=== PATIENT | female | born 1970 | race Caucasian/White ===

== ENCOUNTER 2017-01-08 09:26 | Inpatient (IN) | payer SELFPAY ==
[2017-01-08] VITALS (7 sets, daily range): BP systolic 140–155; BP diastolic 68–84; PULSE 101–129; RESP 16–20; TEMP 97.7–97.9; O2SAT 99–100
[~2017-01-08] VITALS: Ht 154.9 cm; Wt 57.6 kg
[~2017-01-08 09:26] MED LIST: HUMALOG; KPHOSO PO; LANTUSP SQ
[2017-01-08] MEDS ORDERED: NOVOLOGSS (09:45)
[2017-01-08] MEDS ORDERED: SODIUM CHLOR 0.9% 1000 ML INJ 1,000 ML IV ONE ×2 (09:46→18:00)
[2017-01-08] MEDS ORDERED: SODIUM CHLORIDE 0.9% FLUSH 10 ML FLUSH IVF PRN (10:00)
[2017-01-08] MEDS ORDERED: ONDANSETRON HCL 4 MG/2 ML VIAL IV PUSH ONE (10:00)
[2017-01-08 10:03] LABS: AUTOMATED NEUTROPHIL # 7.4 TH/MM3 (1.8-7.7); BASOPHIL # 0.2 TH/MM3 (0-0.2); BASOPHIL % 2.1 % (0.0-2.0); EOSINOPHIL % 0.1 % (0.0-4.0); HEMATOCRIT 42.6 % (35.0-46.0); LYMPH % 15.3 % (9.0-44.0); LYMPHOCYTE # 1.4 TH/MM3 (1.0-4.8); MEAN CELL VOLUME 101.6 FL (80.0-100.0); MEAN CORPUSCULAR HEMOGLOBIN 33.9 PG (27.0-34.0); MEAN CORPUSCULAR HGB CONC 33.4 % (32.0-36.0); MONO % 4.2 % (0.0-8.0); NEUT % 78.3 % (16.0-70.0); PLATELET COUNT 260 TH/MM3 (150-450); RED BLOOD COUNT 4.19 MIL/MM3 (4.00-5.30); RED CELL DISTRIBUTION WIDTH 12.9 % (11.6-17.2); WHITE BLOOD COUNT 9.4 TH/MM3 (4.0-11.0)
[2017-01-08 10:06] LABS: HEMO FLAGS DIFF FINAL
[2017-01-08 10:10] LABS: CHLORIDE 98 MEQ/L (98-107); POTASSIUM 3.9 MEQ/L (3.5-5.1); SODIUM (NA) 142 MEQ/L (136-145)
[2017-01-08 10:14] LABS: ANION GAP 25 MEQ/L (5-15); BICARBONATE 19.1 MEQ/L (21.0-32.0); BLOOD UREA NITROGEN 14 MG/DL (7-18)
[2017-01-08 10:17] LABS: ALT (GPT) 49 U/L (10-53); AST (GOT) 65 U/L (15-37); GLOMERULAR FILTRATION RATE 74 ML/MIN (>89)
[2017-01-08 10:18] LABS: TOTAL BILIRUBIN ADULT 0.4 MG/DL (0.2-1.0)
[2017-01-08 10:20] LABS: ALKALINE PHOSPHATASE 100 U/L (45-117)
[2017-01-08] MEDS ORDERED: MORPHINE SULFATE 4 MG/ML INJ IV PUSH ONE (10:30)
[2017-01-08 10:39] LABS: BETA-HYDROXYBUTYRATE 7.11 MMOL/L (0.00-0.39)
[2017-01-08] MEDS ORDERED: IOHEXOL 350 MG/ML 10 ML VIAL (for RAD DIAG) IV ONE (11:47)
--- NOTE | 2017-01-08 12:20 | RADHPO ---
EXAM DATE/TIME: 01/08/2017 11:20 [place] COMPARISON: No previous studies available for comparison. INDICATIONS : Upper abdominal pain. Vomiting. IV CONTRAST: 80 cc Omnipaque 350 (iohexol) IV ORAL CONTRAST: No oral contrast ingested. RADIATION DOSE: 4.69 CTDIvol (mGy) MEDICAL HISTORY : Hypertension. Diabetes mellitus type 2. SURGICAL HISTORY : None. ENCOUNTER: Initial ACUITY: 1 day PAIN SCALE: 7/10 LOCATION: Bilateral lower quadrant TECHNIQUE: Volumetric scanning of the abdomen and pelvis was performed. Using automated exposure control and ad justment of the mA and/or kV according to patient size, radiation dose was kept as low as reasonably achievable to obtain optimal diagnostic quality images. FINDINGS: LOWER LUNGS: The visualized lower lungs are clear. LIVER: Liver is enlarged measuring up to 20 cm. There are 2 ill-defined lesions in the liver. There is an il l-defined hypodense lesion in segment 4 measuring 2.4 x 2.4 x 2.4 cm. There is also an ill-defined hy podense lesion measuring 3.2 x 3.3 x 3.2 cm in segment 6. There is minimal associated mass effect wit h both lesions with splaying of the portal branches in segment 4 and slight bowing of the liver capsu le in segment 6. SPLEEN: Normal size without lesion. PANCREAS: Pancreas enhances uniformly. KIDNEYS: Normal in size and shape. The several small subcentimeter hypodense cystic lesions in the left infer ior pole which are too small to characterize. There is no mass, stone or hydronephrosis. ADRENAL GLANDS: Within normal limits. VASCULAR: There is no aortic aneurysm. BOWEL/MESENTERY: Appendix is visualized and normal in appearance. Stomach is completely decompressed. Bowel is normal in caliber without evidence for bowel obstruction or gross bowel thickening. ABDOMINAL WALL: Within normal limits. RETROPERITONEUM: There is no lymphadenopathy. BLADDER: No wall thickening or mass. REPRODUCTIVE: Calcified probable uterine leiomyomas. 2 cm right adnexal cyst likely reflecting an ovarian cyst. INGUINAL: Small fat containing left inguinal hernia. MUSCULOSKELETAL: Within normal limits for patient age. CONCLUSION: 1. No definite CT findings to explain patient's abdominal pain 2. Liver is enlarged measuring 20 cm with 2 ill-defined hypodense masses. 2.4 x 2.4 x 2.4 cm mass in segment 4 and 3.2 x 3.3 x 3.2 cm mass in segment 6. Although the findings may reflect focal fat, diff erential considerations include both benign and malignant etiologies as there are no characteristic f indings to support a specific diagnosis. Recommend further characterization with multiphase liver mas s protocol MRI or CT exam particularly if patient has a history of EtOH abuse, hepatitis, or malignan cy. 3. Normal appendix. 4. Calcified uterine leiomyomas. 5. Subcentimeter cystic lesions in the left kidney are too small to fully characterize. Statistically these reflect cysts. Jw Cornell MD on January 08, 2017 at 12:00 Board Certified Radiologist. This report was verified electronically.
--- NOTE | 2017-01-08 12:21 | PD ---
HPI Chief Complaint: Diabetic Time Seen by Provider: 09:46 Travel History International Travel<30 days: No Contact w/Intl Traveler<30days: No Traveled to known affect area: No History of Present Illness HPI Patient is a type I diabetic, presents to emergency room with complaints of hyperglycemia as well as abdominal pain with nausea and vomiting. Patient reports that symptoms began this morning around 2 AM, reports that she she woke up and checked her blood sugar and it was in the 600s, reports that she administered insulin to herself. Reports that she is not feeling any better this morning and has severe epigastric pain. Reports no fever/chills PFSH Past Medical History Blood Disorders: No Heart Rhythm Problems: No Cancer: No Cardiovascular Problems: No High Cholesterol: Yes Chemotherapy: No Chest Pain: No Congestive Heart Failure: No Diabetes: Yes Patient Takes Glucophage: No Diminished Hearing: No Endocrine: Yes Gastrointestinal Disorders: Yes GERD: No Genitourinary: No Hiatal Hernia: No Hypertension: Yes Immune Disorder: No Implanted Vascular Access Dvce: No Musculoskeletal: No Neurologic: No Psychiatric: No Reproductive: No Respiratory: No Myocardial Infarction: No Radiation Therapy: No Thyroid Disease: No Ulcer: No ?: Not Past Surgical History Abdominal Surgery: No AICD: No Cardiac Surgery: No Section: Yes Ear Surgery: No Endocrine Surgery: No Eye Surgery: No Genitourinary Surgery: No Gynecologic Surgery: No Joint Replacement: No Neurologic Surgery: No Oral Surgery: No Pacemaker: No Thoracic Surgery: No Social History Alcohol Use: Yes (2 TIMES A WEEK) Tobacco Use: Yes (1 PPD) Substance Use: Yes ([facility]) Allergies-Medications (Allergen,Severity, Reaction): Coded Allergies: Penicillin (Verified Allergy, Severe, SWELLING, 01/08/17) Reported Meds & Prescriptions Reported Meds & Active Scripts Active Reported Novolog Inj (Insulin Aspart) 100 Unit/Ml Inj Review of Systems General / Constitutional: No: Fever Eyes: No: Visual changes HENT: No: Headaches Cardiovascular: No: Chest Pain or Discomfort Respiratory: No: Shortness of Breath Gastrointestinal: Positive: Nausea, Vomiting, Abdominal Pain Genitourinary: No: Dysuria Musculoskeletal: No: Pain Skin: No Rash Neurologic: No: Weakness Psychiatric: No: Depression Endocrine: No: Polydipsia Hematologic/Lymphatic: No: Easy Bruising Physical Exam Narrative GENERAL: Mild distress SKIN: Focused skin assessment warm/dry. HEAD: Atraumatic. Normocephalic. EYES: Pupils equal and round. No scleral icterus. No injection or drainage. ENT: No nasal bleeding or discharge. Mucous membranes pink and moist. NECK: Trachea midline. No JVD. CARDIOVASCULAR: Regular rate and rhythm. No murmur appreciated. RESPIRATORY: No accessory muscle use. Clear to auscultation. Breath sounds equal bilaterally. GASTROINTESTINAL: Abdomen soft, increased tenderness to epigastrium with no rebound or guarding on exam MUSCULOSKELETAL: No obvious deformities. No clubbing. No cyanosis. No edema. NEUROLOGICAL: Awake and alert. No obvious cranial nerve deficits. Motor grossly within normal limits. Normal speech. PSYCHIATRIC: Appropriate mood and affect; insight and judgment normal. Data Data Last Documented VS Vital Signs Date Time Temp Pulse Resp B/P Pulse Ox O2 Delivery O2 Flow Rate FiO2 01/08/17 11:44 101 18 142/68 99 01/08/17 10:34 Room Air 01/08/17 09:33 97.9 Orders Electrocardiogram (01/08/17 09:46) Complete Blood Count With Diff (01/08/17 09:46) Comprehensive Metabolic Panel (01/08/17 09:46) Magnesium (Mg) (01/08/17 09:46) Beta Hydroxybutyrate (Acetone) (01/08/17 09:46) Osmolality,Serum (01/08/17 09:46) Urinalysis - C+S If Indicated (01/08/17 09:46) Blood Glucose (01/08/17 09:46) Blood Glucose (01/08/17 10:46) Iv Access Insert/Monitor (01/08/17 09:46) Oximetry (01/08/17 09:46) Sodium Chloride 0.9% Flush (Ns Flush) (01/08/17 10:00) Sodium Chlor 0.9% 1000 Ml Inj (Ns 1000 M (01/08/17 09:46) Lipase (01/08/17 09:46) Ondansetron Inj (Zofran Inj) (01/08/17 10:00) Ct Abd/Pel W Iv Contrast(Rout) (01/08/17 10:27) Morphine Inj (Morphine Inj) (01/08/17 10:30) Iohexol 350 Inj (Omnipaque 350 Inj) (01/08/17 11:47) Labs Laboratory Tests Test 01/08/17 09:50 White Blood Count 9.4 TH/MM3 Red Blood Count 4.19 MIL/MM3 Hemoglobin 14.2 GM/DL Hematocrit 42.6 % Mean Corpuscular Volume 101.6 FL Mean Corpuscular Hemoglobin 33.9 PG Mean Corpuscular Hemoglobin 33.4 % Concent Red Cell Distribution Width 12.9 % Platelet Count 260 TH/MM3 Mean Platelet Volume 8.4 FL Neutrophils (%) (Auto) 78.3 % Lymphocytes (%) (Auto) 15.3 % Monocytes (%) (Auto) 4.2 % Eosinophils (%) (Auto) 0.1 % Basophils (%) (Auto) 2.1 % Neutrophils # (Auto) 7.4 TH/MM3 Lymphocytes # (Auto) 1.4 TH/MM3 Monocytes # (Auto) 0.4 TH/MM3 Eosinophils # (Auto) 0.0 TH/MM3 Basophils # (Auto) 0.2 TH/MM3 CBC Comment DIFF FINAL Differential Comment Sodium Level 142 MEQ/L Potassium Level 3.9 MEQ/L Chloride Level 98 MEQ/L Carbon Dioxide Level 19.1 MEQ/L Anion Gap 25 MEQ/L Blood Urea Nitrogen 14 MG/DL Creatinine 0.82 MG/DL Estimat Glomerular Filtration 74 ML/MIN Rate Random Glucose 261 MG/DL Serum Osmolality 315 MOSM/KG Calcium Level 8.6 MG/DL Magnesium Level 2.0 MG/DL Total Bilirubin 0.4 MG/DL Aspartate Amino Transf 65 U/L (AST/SGOT) Alanine Aminotransferase 49 U/L (ALT/SGPT) Alkaline Phosphatase 100 U/L Total Protein 7.5 GM/DL Albumin 3.8 GM/DL Lipase 2491 U/L B-Hydroxybutyrate 7.11 MMOL/L [facility] Medical Decision Making Medical Screen Exam Complete: Yes Emergency Medical Condition: Yes Interpretation(s) EKG at sinus tach at 101bpm, qt/qtc: 346/417, no acute st or t wave changes Vital Signs Date Time Temp Pulse Resp B/P Pulse Ox O2 Delivery O2 Flow Rate FiO2 01/08/17 11:44 101 18 142/68 99 01/08/17 10:34 108 16 155/81 99 Room Air 01/08/17 09:55 16 100 Room Air 01/08/17 09:36 16 100 Room Air 01/08/17 09:33 97.9 104 16 144/68 100 Room Air Laboratory Tests Test 01/08/17 09:50 White Blood Count 9.4 TH/MM3 (4.0-11.0) Red Blood Count 4.19 MIL/MM3 (4.00-5.30) Hemoglobin 14.2 GM/DL (11.6-15.3) Hematocrit 42.6 % (35.0-46.0) Mean Corpuscular Volume 101.6 FL (80.0-100.0) Mean Corpuscular Hemoglobin 33.9 PG (27.0-34.0) Mean Corpuscular Hemoglobin 33.4 % Concent (32.0-36.0) Red Cell Distribution Width 12.9 % (11.6-17.2) Platelet Count 260 TH/MM3 (150-450) Mean Platelet Volume 8.4 FL (7.0-11.0) Neutrophils (%) (Auto) 78.3 % (16.0-70.0) Lymphocytes (%) (Auto) 15.3 % (9.0-44.0) Monocytes (%) (Auto) 4.2 % (0.0-8.0) Eosinophils (%) (Auto) 0.1 % (0.0-4.0) Basophils (%) (Auto) 2.1 % (0.0-2.0) Neutrophils # (Auto) 7.4 TH/MM3 (1.8-7.7) Lymphocytes # (Auto) 1.4 TH/MM3 (1.0-4.8) Monocytes # (Auto) 0.4 TH/MM3 (0-0.9) Eosinophils # (Auto) 0.0 TH/MM3 (0-0.4) Basophils # (Auto) 0.2 TH/MM3 (0-0.2) CBC Comment DIFF FINAL Differential Comment Sodium Level 142 MEQ/L (136-145) Potassium Level 3.9 MEQ/L (3.5-5.1) Chloride Level 98 MEQ/L (98-107) Carbon Dioxide Level 19.1 MEQ/L (21.0-32.0) Anion Gap 25 MEQ/L (5-15) Blood Urea Nitrogen 14 MG/DL (7-18) Creatinine 0.82 MG/DL (0.50-1.00) Estimat Glomerular Filtration 74 ML/MIN (>89) Rate Random Glucose 261 MG/DL (74-106) Serum Osmolality 315 MOSM/KG (275-295) Calcium Level 8.6 MG/DL (8.5-10.1) Magnesium Level 2.0 MG/DL (1.5-2.5) Total Bilirubin 0.4 MG/DL (0.2-1.0) Aspartate Amino Transf 65 U/L (15-37) (AST/SGOT) Alanine Aminotransferase 49 U/L (10-53) (ALT/SGPT) Alkaline Phosphatase 100 U/L (45-117) Total Protein 7.5 GM/DL (6.4-8.2) Albumin 3.8 GM/DL (3.4-5.0) Lipase 2491 U/L (73-393) B-Hydroxybutyrate 7.11 MMOL/L (0.00-0.39) Differential Diagnosis DKA, hyperglycemia, electrolyte abnormality, pancreatitis, gastritis, gastroenteritis, ACS Narrative Course Patient is a 46-year-old female who presents to emergency room with complaints of hyperglycemia along with abdominal pain, nausea vomiting and epigastric pain. Reports that symptoms began 2 AM, patient reports that her blood sugar was reading over 700. Blood sugar to 244, labs including CT of abdomen and pelvis ordered. Will give IV fluids and antiemetics as well as pain medications. Vital Signs Date Time Temp Pulse Resp B/P Pulse Ox O2 Delivery O2 Flow Rate FiO2 01/08/17 11:44 101 18 142/68 99 01/08/17 10:34 108 16 155/81 99 Room Air 01/08/17 09:55 16 100 Room Air 01/08/17 09:36 16 100 Room Air 01/08/17 09:33 97.9 104 16 144/68 100 Room Air Laboratory Tests Test 01/08/17 09:50 White Blood Count 9.4 TH/MM3 (4.0-11.0) Red Blood Count 4.19 MIL/MM3 (4.00-5.30) Hemoglobin 14.2 GM/DL (11.6-15.3) Hematocrit 42.6 % (35.0-46.0) Mean Corpuscular Volume 101.6 FL (80.0-100.0) Mean Corpuscular Hemoglobin 33.9 PG (27.0-34.0) Mean Corpuscular Hemoglobin 33.4 % Concent (32.0-36.0) Red Cell Distribution Width 12.9 % (11.6-17.2) Platelet Count 260 TH/MM3 (150-450) Mean Platelet Volume 8.4 FL (7.0-11.0) Neutrophils (%) (Auto) 78.3 % (16.0-70.0) Lymphocytes (%) (Auto) 15.3 % (9.0-44.0) Monocytes (%) (Auto) 4.2 % (0.0-8.0) Eosinophils (%) (Auto) 0.1 % (0.0-4.0) Basophils (%) (Auto) 2.1 % (0.0-2.0) Neutrophils # (Auto) 7.4 TH/MM3 (1.8-7.7) Lymphocytes # (Auto) 1.4 TH/MM3 (1.0-4.8) Monocytes # (Auto) 0.4 TH/MM3 (0-0.9) Eosinophils # (Auto) 0.0 TH/MM3 (0-0.4) Basophils # (Auto) 0.2 TH/MM3 (0-0.2) CBC Comment DIFF FINAL Differential Comment Sodium Level 142 MEQ/L (136-145) Potassium Level 3.9 MEQ/L (3.5-5.1) Chloride Level 98 MEQ/L (98-107) Carbon Dioxide Level 19.1 MEQ/L (21.0-32.0) Anion Gap 25 MEQ/L (5-15) Blood Urea Nitrogen 14 MG/DL (7-18) Creatinine 0.82 MG/DL (0.50-1.00) Estimat Glomerular Filtration 74 ML/MIN (>89) Rate Random Glucose 261 MG/DL (74-106) Serum Osmolality 315 MOSM/KG (275-295) Calcium Level 8.6 MG/DL (8.5-10.1) Magnesium Level 2.0 MG/DL (1.5-2.5) Total Bilirubin 0.4 MG/DL (0.2-1.0) Aspartate Amino Transf 65 U/L (15-37) (AST/SGOT) Alanine Aminotransferase 49 U/L (10-53) (ALT/SGPT) Alkaline Phosphatase 100 U/L (45-117) Total Protein 7.5 GM/DL (6.4-8.2) Albumin 3.8 GM/DL (3.4-5.0) Lipase 2491 U/L (73-393) B-Hydroxybutyrate 7.11 MMOL/L (0.00-0.39) Labs and ct studies reviewed with patient in detail. Patient's blood sugar is 261, serum on symptoms 315, and gap is 25, beta hydroxybutyrate 7.11 - concern for impending DKA given her lab work and physical presentation patient also with lipase of 2,491 with epigastric pain - clinically patient has pancreatitis. CT of the abdomen and pelvis is concerning as she has some hypodense masses on her liver, patient reports that she has never had these masses in the past. Patient has history of alcohol abuse, hepatitis, I did give patient a copy her CT report as she will need to follow-up with her primary care doctor for further workup of these liver masses. Discussed concerns for possible malignancy. Patients sister at bedside, did talk to me in confidence, reports that patient drinks daily and she is concerned about patient's drinking habits although patient only drinking 2-3 drinks 2 days a week. Pancreatitis could be secondary to alcohol abuse Physician Communication Physician Communication case reviewed with dr. martinez who accepts pt to service Diagnosis Primary Impression: Pancreatitis Additional Impressions: Hyperglycemia due to type 1 diabetes mellitus Liver masses Admitting Information Admitting Physician Requests: Admit Fiorella Penn DO Jan 08, 2017 12:21
[2017-01-08 13:10] LABS: BLOOD, URINE SMALL (NEG); GLUCOSE,URINE 250 mg/dL (NEG); NITRITE,URINE NEG (NEG); PH, URINE 5.5 (5.0-8.5)
[2017-01-08 13:17] LABS: KETONE, URINE 80 OR GREATER mg/dL (NEG)
[2017-01-08 13:19] LABS: COMMENT (UR) CULT NOT INDICATED; CULTURE IF INDICATED CULT NOT INDICATED; METHOD OF COLLECTION CLEAN CATCH; RBC, URINE 0-3 /hpf (0-3); URINE COLOR YELLOW (YELLW/STRAW); WBC, URINE 0-2 /hpf (0-5)
[2017-01-08] MEDS ORDERED: LORazepam 2 MG TAB PO PRN (14:15)
[2017-01-08] MEDS ORDERED: DEXTROSE 50% IN WATER 50 ML VIAL(D50) IV PRN (14:15)
[2017-01-08] MEDS ORDERED: NALOXONE HCL 0.4 MG/ML AMP IV PRN (14:15)
[2017-01-08] MEDS ORDERED: LORazepam 2 MG/ML VIAL IV PUSH PRN ×3 (14:15)
[2017-01-08] MEDS ORDERED: FLUMAZENIL 0.5 MG/5 ML VIAL IV PUSH PRN (14:15)
[2017-01-08] MEDS ORDERED: LORazepam 1 MG TAB PO PRN (14:15)
[2017-01-08] MEDS ORDERED: SODIUM CHLORIDE 0.9% FLUSH 10 ML FLUSH IV FLUSH PRN (14:15)
[2017-01-08] MEDS ORDERED: GLUCAGON 1 MG/ML VIAL OTHER PRN (14:15)
[2017-01-08 14:39] LABS: POTASSIUM 4.6 MEQ/L (3.5-5.1)
[2017-01-08 14:42] LABS: BICARBONATE 14.4 MEQ/L (21.0-32.0)
[2017-01-08] MEDS: SODIUM CHLOR 0.9% 1000 ML INJ 1,000 ML IV SCH ×2 (14:49→20:59)
[2017-01-08] MEDS ORDERED: MAGNESIUM HYDROXIDE SUSP 30 ML CUP PO PRN (15:00)
[2017-01-08] MEDS ORDERED: BISACODYL 10 MG SUPP RECTAL PRN (15:00)
[2017-01-08] MEDS ORDERED: PANTOPRAZOLE SOD 40 MG DELAYED RELEASE TAB PO SCH (15:00)
[2017-01-08] MEDS ORDERED: LACTULOSE SYRUP 20 GM/30 ML CUP PO PRN (15:00)
--- NOTE | 2017-01-08 16:24 | HHI.HP ---
[facility]ician Neptali Borges MD Admission Diagnosis HHNK, Pancreatitis Diagnoses: (1) Metabolic acidosis, increased anion gap Diagnosis: Principal (2) Diabetic ketoacidosis Diagnosis: Principal (3) Alcoholic ketoacidosis Diagnosis: Principal (4) Pancreatitis Diagnosis: Principal (5) Liver masses Diagnosis: Principal (6) Hypertension Diagnosis: Secondary (7) Hyperlipidemia Diagnosis: Secondary Chief Complaint: Abdominal pain, nausea vomiting Travel History International Travel<30 Days: No Contact w/Intl Traveler <30 Da: No Traveled to Known Affected Are: No History of Present Illness Written by Ammon Damon, acting as scribe for Dr. Obrien on 01/08/17 at 16: 11. 46-year-old female with known history of diabetes, hypertension, hyperlipidemia, alcohol use who presented to the hospital because of abdominal pain, nausea and vomiting. Patient states that she was in normal state of health until early this morning. She indicates that she had a promotion at work and was celebrating at home with alcohol use. She states that she had approximately 5 alcoholic beverages that consisted of vodka, water and Crystal light powder. Patient states that she woke up approximately 2 AM, not feeling well with lightheadedness and dizziness. Patient checked her blood sugar and noticed that it was 600. She states that she gave herself 15 units of NovoLog insulin and continued recheck her blood sugar every hour in which she states it came down to 360 prior to coming to the hospital. However during this time of monitoring her sugar she developed epigastric abdominal pain radiating into her back with associated nausea, vomiting, diarrhea. Because she could not stop having nausea, vomiting, diarrhea she came to the hospital for evaluation. Patient was evaluated in emergency department and found to have significant metabolic acidosis with anion gap. CT scan did show abnormal findings of the liver with possible masses. It was recommended by the ER physician that the patient be admitted for further evaluation and management. Patient indicates that she has not been managing her diabetes as she used to. She states that due to insurance reasons she had to change from Lantus insulin to NPH temporarily until her insurance was able to cover the Lantus. She indicates her primary medical doctor knew about this and has been adjusting her medications. Review of Systems Constitutional: DENIES: Diaphoretic episodes, Fatigue, Fever, Weight gain, Weight loss, Chills, Dizziness, Change in appetite, Night Sweats Eyes: DENIES: Blurred vision, Diplopia, Eye inflammation, Eye pain, Vision loss , Double Vision Ears, nose, mouth, throat: DENIES: Vertigo, Nasal discharge, Throat pain, Ear Pain, Running Nose, Sinus Pain Respiratory: DENIES: Apneas, Cough, Snoring, Wheezing, Hemoptysis, Sputum production, Shortness of breath Cardiovascular: COMPLAINS OF: PND, Claudication, DENIES: Chest pain, Palpitations, Syncope, Dyspnea on Exertion, Lower Extremity Edema, Orthopnea Gastrointestinal: COMPLAINS OF: Abdominal pain, Diarrhea, Nausea, Vomiting, DENIES: Black stools, Bloody stools, Constipation, Difficulty Swallowing, Anorexia Neurologic: DENIES: Abnormal gait, Headache, Localized weakness, Paresthesias, Seizures, Speech Problems, Tremor, Poor Balance Past Family Social History Past Medical History Hypertension Hyperlipidemia Diabetes type 1 Past Surgical History Left great toe amputation Reported Medications Reported Meds & Active Scripts Active Reported Novolog Inj (Insulin Aspart) 100 Unit/Ml Inj Allergies: Coded Allergies: Penicillin (Verified Allergy, Severe, SWELLING, 01/08/17) Family History Reviewed and significant for father at age 58 from diabetes, sister from seizures Social History Patient continues to smoke at least one pack a cigarettes a day since she was 13 years old. She does drink approximately 34 times weekly. Patient denied any illicit drug use, however records indicate that she admitted to marijuana use. Physical Exam Vital Signs Vital Signs Date Time Temp Pulse Resp B/P Pulse Ox O2 Delivery O2 Flow Rate FiO2 01/08/17 15:29 110 140/83 100 01/08/17 14:31 106 16 154/84 100 01/08/17 11:44 101 18 142/68 99 01/08/17 10:34 108 16 155/81 99 Room Air 01/08/17 09:55 16 100 Room Air 01/08/17 09:36 16 100 Room Air 01/08/17 09:33 97.9 104 16 144/68 100 Room Air Physical Exam GENERAL: Well-developed, well-nourished, in no acute distress. alert and orientated HEENT: Head is normocephalic without any lesions or masses noted. Facial features are symmetric. Eyes: Pupils equal round reactive to light. Extraocular muscles are intact. Conjunctivae were clear. Oropharyngeal: Pharynx without any erythema edema. Tongue is midline without deviation. Buccal mucosa is moist without any masses or lesions NECK: Supple without any masses. Trachea midline no deviation. No JVD, no bruits are appreciated CARDIAC: Regular rhythm, regular rate. S1/S2 are heard. No murmurs gallops or rubs. LUNGS: Clear to auscultation bilaterally. No wheeze, rhonchi or rales. No use of accessory muscles on inspiration or expiration. ABDOMEN: Soft, mild epigastric pain. Nondistended. Bowel sounds heard in all 4 quadrants. No organomegaly or masses. Negative rebound, negative guarding EXTREMITIES: No edema, pulses are equal bilaterally. No cyanosis or clubbing NEUROLOGY: Mood and affect appear appropriate. Cranial nerves II through XII grossly intact. Muscle strength 5/5 in upper and lower extremities bilaterally. Deep tendon reflexes are 2+ in upper and lower extremities bilaterally. Laboratory Laboratory Tests Test 01/08/17 01/08/17 01/08/17 09:50 12:45 14:21 White Blood Count 9.4 Red Blood Count 4.19 Hemoglobin 14.2 Hematocrit 42.6 Mean Corpuscular Volume 101.6 Mean Corpuscular Hemoglobin 33.9 Mean Corpuscular Hemoglobin 33.4 Concent Red Cell Distribution Width 12.9 Platelet Count 260 Mean Platelet Volume 8.4 Neutrophils (%) (Auto) 78.3 Lymphocytes (%) (Auto) 15.3 Monocytes (%) (Auto) 4.2 Eosinophils (%) (Auto) 0.1 Basophils (%) (Auto) 2.1 Neutrophils # (Auto) 7.4 Lymphocytes # (Auto) 1.4 Monocytes # (Auto) 0.4 Eosinophils # (Auto) 0.0 Basophils # (Auto) 0.2 CBC Comment DIFF FINAL Differential Comment Sodium Level 142 142 Potassium Level 3.9 4.6 Chloride Level 98 103 Carbon Dioxide Level 19.1 14.4 Anion Gap 25 25 Blood Urea Nitrogen 14 10 Creatinine 0.82 0.60 Estimat Glomerular Filtration 74 107 Rate Random Glucose 261 282 Serum Osmolality 315 Calcium Level 8.6 8.1 Magnesium Level 2.0 Total Bilirubin 0.4 Aspartate Amino Transf 65 (AST/SGOT) Alanine Aminotransferase 49 (ALT/SGPT) Alkaline Phosphatase 100 Total Protein 7.5 Albumin 3.8 Lipase 2491 B-Hydroxybutyrate 7.11 Urine Collection Type CLEAN CATCH Urine Color YELLOW Urine Turbidity CLEAR Urine pH 5.5 Urine Specific Luana 1.015 Urine Protein TRACE Urine Glucose (UA) 250 Urine Ketones 80 OR GREATER Urine Occult Blood SMALL Urine Nitrite NEG Urine Bilirubin NEG Urine Leukocyte Esterase NEG Urine RBC 0-3 Urine WBC 0-2 Urine Squamous Epithelial 6-8 Cells Microscopic Urinalysis Comment CULT NOT INDICATED Urine Collection Time 12:45 Result Diagram: 01/08/17 0950 01/08/17 1421 Imaging Last Impressions Abdomen/Pelvis CT 01/08/17 1027 Signed Impressions: Service Date/Time: Friday, January 08, 2017 11:20 - CONCLUSION: 1. No definite CT findings to explain patient's abdominal pain 2. Liver is enlarged measuring 20 cm with 2 ill-defined hypodense masses. 2.4 x 2.4 x 2.4 cm mass in segment 4 and 3.2 x 3.3 x 3.2 cm mass in segment 6. Although the findings may reflect focal fat, differential considerations include both benign and malignant etiologies as there are no characteristic findings to support a specific diagnosis. Recommend further characterization with multiphase liver mass protocol MRI or CT exam particularly if patient has a history of EtOH abuse, hepatitis, or malignancy. 3. Normal appendix. 4. Calcified uterine leiomyomas. 5. Subcentimeter cystic lesions in the left kidney are too small to fully characterize. Statistically these reflect cysts. Jw Cornell MD Assessment and Plan Assessment and Plan 46-year-old female admitted with anion gap metabolic acidosis and acute pancreatitis. Anion gap metabolic acidosis, probably related to a combination of early diabetic ketoacidosis and ketotic state from alcohol abuse Continue aggressive hydration with IV fluid. Continue monitor BMP, anion gap every 6 hours Monitor beta hydroxybutyrate Pancreatitis Keep nothing by mouth IV fluids Pain control Liver masses by CT Obtain MRI for further evaluation Diabetes, uncontrolled Accu-Cheks with sliding scale insulin Alcohol abuse Patient counseled on cessation [facility] protocol Multivitamin, thiamine, folic acid DVT prevention Subcutaneous heparin This note was transcribed by scribe [Ammon Damon]. I, Dr. Marjorie Obrien personally performed the history, physical exam, and medical decision making; and confirmed the accuracy of the information in the transcribed note. Authenticated by Dr. Marjorie Obrien on 01/08/17 at 1620. Physician Certification 2 Midnight Certification Type: Admission for Inpatient Services Order for Inpatient Services The services are ordered in accordance with Medicare regulations or non- Medicare payer requirements, as applicable. In the case of services not specified as inpatient-only, they are appropriately provided as inpatient services in accordance with the 2-midnight benchmark. Estimated LOS (days): 2 days is the estimated time the patient will need to remain in the hospital, assuming treatment plan goals are met and no additional complications. Post-Hospital Plan: Not yet determined Problem Qualifiers (1) Diabetic ketoacidosis: Qualified Code: E10.10 - Diabetic ketoacidosis without coma associated with type 1 diabetes mellitus (2) Pancreatitis: Qualified Code: K85.90 - Acute pancreatitis, unspecified complication status, unspecified pancreatitis type (3) Hypertension: Qualified Code: I15.9 - Secondary hypertension (4) Hyperlipidemia: Qualified Code: E78.5 - Hyperlipidemia, unspecified hyperlipidemia type Ammon aDmon Jan 08, 2017 16:24 Marjorie Obrien MD Jan 08, 2017 17:32
[2017-01-08] MEDS: MORPHINE SULFATE 4 MG/ML INJ IV PUSH PRN ×2 (17:53→20:59)
[2017-01-08] MEDS: INSULIN ASPART SUPPLEMENTAL SCALE SQ SCH ×2 (17:54→21:00)
[2017-01-08] MEDS: PANTOPRAZOLE SODIUM 40 MG VIAL IV PUSH SCH (17:56)
[2017-01-08 20:41] LABS: BICARBONATE 11.6 MEQ/L (21.0-32.0); POTASSIUM 4.3 MEQ/L (3.5-5.1)
[2017-01-08] MEDS: HEPARIN SODIUM - SQ 10,000 UNITS/ML VIAL SQ SCH (20:58)
[2017-01-08] MEDS: DOCUSATE SODIUM 50 MG/SENNA 8.6 MG TAB PO SCH (20:59)
[2017-01-08] MEDS: SODIUM CHLORIDE 0.9% FLUSH 10 ML FLUSH IV FLUSH SCH (21:00)
[2017-01-08] MEDS ORDERED: SENNOSIDES 8.6 MG TAB PO PRN (21:00)
[2017-01-08] MEDS: NICOTINE 14 MG/24 HR PATCH T-DERMAL SCH (22:42)
[2017-01-09] VITALS (24 sets, daily range): BP systolic 92–124; BP diastolic 58–85; PULSE 104–135; RESP 9–45; TEMP 96–98.2; O2SAT 88–100
[2017-01-09] MEDS: MORPHINE SULFATE 4 MG/ML INJ IV PUSH PRN ×3 (00:33→16:49)
[2017-01-09] MEDS: ONDANSETRON HCL 4 MG/2 ML VIAL IVP PRN ×3 (00:38→12:55)
[2017-01-09] MEDS: LORazepam 2 MG/ML VIAL IV PUSH PRN ×4 (02:36→22:41)
[2017-01-09] MEDS: SODIUM CHLOR 0.9% 1000 ML INJ 1,000 ML IV SCH (03:31)
[2017-01-09 03:45] LABS: BICARBONATE 2.9 MEQ/L (21.0-32.0); POTASSIUM 5.5 MEQ/L (3.5-5.1)
[2017-01-09 04:05] LABS: CALCIUM-PROTEIN CORRECTED 7.3 MG/DL (8.5-10.1)
[2017-01-09] MEDS ORDERED: INSULIN ASPART 1,000 UNITS/10 ML VIAL SQ ONE (04:15)
[2017-01-09] MEDS ORDERED: SODIUM CHLOR 0.9% 1000 ML INJ 1,000 ML IV SCH (04:53)
[2017-01-09] MEDS ORDERED: POTASSIUM CHLOR 40 MEQ PREMIX 100 ML IV PRN (05:00)
[2017-01-09] MEDS ORDERED: SODIUM BICARBONATE 8.4% SOLN 50 MEQ/50 ML VIAL IV PRN ×2 (05:00)
[2017-01-09] MEDS ORDERED: MISCELLANEOUS NURSING INFORMATION XX SCH (05:00)
[2017-01-09] MEDS ORDERED: POTASSIUM CHLOR 20 MEQ PREMIX 100 ML IV PRN ×5 (05:00)
[2017-01-09] MEDS ORDERED: SODIUM PHOSPHATE INJ 15 MMOL in SODIUM CHLORIDE 0.9% INJ 100 ML IV PRN (05:00)
[2017-01-09] MEDS ORDERED: INSULIN REGULAR (IV INFUSION) 100 UNITS in SODIUM CHLORIDE 0.9% INJ 99 ML IV SCH (05:00)
[2017-01-09] MEDS ORDERED: DEXT 5%-NACL 0.45% 1000 ML INJ 1,000 ML IV SCH (05:00)
[2017-01-09] MEDS ORDERED: SODIUM CHLOR 0.9% 1000 ML INJ 1,000 ML IV ONE ×4 (05:15→07:30)
[2017-01-09 05:17] LABS: BLOOD GAS BASE EXCESS -29.2 mmol/L (-2-2); BLOOD GAS CARBOXYHEMOGLOBIN 0.8 % (0-4); BLOOD GAS HCO3 2 mmol/L (22-26); BLOOD GAS METHEMOGLOBIN 1.7 % (0-2); BLOOD GAS O2 HGB SATURATION 94 % (90-100); BLOOD GAS OXYGEN CONTENT 17.2 Vol % (12.0-20.0); BLOOD GAS PCO2 9 mmHg (38-42); BLOOD GAS PO2 143 mmHg (61-120); BLOOD GAS TOTAL HGB 12.8 G/DL (12.0-16.0)
[2017-01-09 05:18] LABS: CRITICAL VALUE YES; DRAW SITE RT BRACHIAL; FIO2 21 %; NUMBER OF ARTERIAL PUNCTURES 1; OXYGEN DEVICE ROOM AIR; STAT YES
[2017-01-09 05:32] LABS: HEMATOCRIT 41.5 % (35.0-46.0); MEAN CELL VOLUME 108.9 FL (80.0-100.0); MEAN CORPUSCULAR HEMOGLOBIN 34.9 PG (27.0-34.0); PLATELET COUNT 279 TH/MM3 (150-450); RED BLOOD COUNT 3.81 MIL/MM3 (4.00-5.30); RED CELL DISTRIBUTION WIDTH 14.4 % (11.6-17.2); REVIEW FLAG FINAL; WHITE BLOOD COUNT 21.6 TH/MM3 (4.0-11.0)
[2017-01-09 05:39] LABS: POTASSIUM 5.3 MEQ/L (3.5-5.1)
[2017-01-09 05:49] LABS: BICARBONATE 4.5 MEQ/L (21.0-32.0); INDIRECT BILIRUBIN 0.2 MG/DL (0.0-0.8); TOTAL BILIRUBIN ADULT 0.3 MG/DL (0.2-1.0)
[2017-01-09 06:02] LABS: BETA-HYDROXYBUTYRATE 12.31 MMOL/L (0.00-0.39)
[2017-01-09 06:38] LABS: BLOOD GAS CARBOXYHEMOGLOBIN 1.1 % (0-4); BLOOD GAS HCO3 5 mmol/L (22-26); BLOOD GAS METHEMOGLOBIN 1.6 % (0-2); BLOOD GAS O2 HGB SATURATION 95 % (90-100); BLOOD GAS OXYGEN CONTENT 16.2 Vol % (12.0-20.0); BLOOD GAS PCO2 18 mmHg (38-42); BLOOD GAS PO2 115 mmHg (61-120); CRITICAL VALUE YES; DRAW SITE RT RADIAL; LITER FLOW 2 L/M; NUMBER OF ARTERIAL PUNCTURES 1; OXYGEN DEVICE NASAL CANNULA
[2017-01-09 06:39] LABS: STAT YES; ULNAR PULSE PRESENT
[2017-01-09] MEDS: INSULIN ASPART SUPPLEMENTAL SCALE SQ SCH (07:00)
[2017-01-09 07:15] LABS: CALCIUM-PROTEIN CORRECTED 7.3 MG/DL (8.5-10.1)
[2017-01-09] MEDS ORDERED: INSULIN HUMAN REGULAR 1,000 UNITS/10 ML VIAL IV PUSH ONE (07:15)
[2017-01-09] MEDS ORDERED: CALCIUM GLUCONATE 10% 1 GM/10 ML VIAL ONE (07:30)
--- NOTE | 2017-01-09 07:30 | RADHPO ---
EXAM DATE/TIME: 01/09/2017 07:22 [facility] COMPARISON: CHEST SINGLE AP, February 28, 2013, 14:05. INDICATIONS : Post central line. MEDICAL HISTORY : Hypertension. Hypercholesterolemia. Diabetes mellitus type II. SURGICAL HISTORY : section. Left great toe. ENCOUNTER: Initial ACUITY: 1 day PAIN SCORE: Non-responsive. LOCATION: chest FINDINGS: There is a new right internal jugular central line in place with the tip overlying the inferior right atrium. The heart size is normal. The lungs demonstrate diffuse increased interstitial markings. Sig nificant effusions are not seen. A pneumothorax is not seen. CONCLUSION: 1. Right internal jugular central in place with the tip at the inferior aspect of the right atrium. 2. Diffuse increased interstitial markings representing underlying diffuse processes such as edema. Christopher Lamb MD on January 09, 2017 at 7:28 Board Certified Radiologist. This report was verified electronically.
--- NOTE | 2017-01-09 07:34 | PD.PROCEDR ---
Central Line Procedure REASON FOR PROCEDURE Central venous access for pressor use, medication administration PROCEDURE PERFORMED Central line placement: Right internal jugular vein CONSENT Informed consent for procedure was obtained by phone from patient's sister, [place], patient unable to give consent due to mental status. The risks and benefits of the procedure were discussed to include but limited to bleeding, clot formation, infection, and even . ANESTHESIA Local injection of 1% Lidocaine DESCRIPTION OF THE PROCEDURE The patient was placed in supine, mild Trendelenburg position. The area was exposed and cleansed with ChloraPrep, times two. Large sterile drape was used to cover the patient, with the site exposed, under sterile conditions including cap, face mask, sterile gown, and sterile gloves. On single attempt, the introducer needle was inserted with negative pressure in syringe and venous flash was obtained. The guide wire was then advanced without any restriction and the needle was removed. The dilator was used without any complications. Using Seldinger technique the CodeSealer triple lumen antibiotic coated catheter was advanced over the guide wire to a depth of 19 centimeters. The guide wire was removed. All ports were aspirated with dark venous blood return and flushed easily with sterile saline. All ports were capped. Antibiotic disc was placed around central line at puncture site. The central line was secured to the skin with two interrupted 2.0 silk sutures. The area was bandaged with sterile see- through central line bandage. RADIOLOGICAL DATA Ultrasound guidance was used to locate Right internal jugular vein. Chest X Ray was ordered to confirm placement. COMPLICATIONS: No apparent complications ESTIMATED BLOOD LOSS: Less than 1 cc. Ammon Damon Jan 09, 2017 07:34
[2017-01-09] MEDS ORDERED: CALCIUM GLUCONATE INJ 2 GM in DEXTROSE 5% IN WATER 100ML INJ 100 ML IV ONE ×2 (08:00)
[2017-01-09 08:24] LABS: BICARBONATE 8.7 MEQ/L (21.0-32.0)
[2017-01-09 08:36] LABS: MAGNESIUM 1.8 MG/DL (1.5-2.5)
[2017-01-09 08:38] LABS: CALCIUM-PROTEIN CORRECTED 7.3 MG/DL (8.5-10.1)
[2017-01-09] MEDS ORDERED: NORMOSOL R INJ 1,000 ML IV SCH (09:00)
[2017-01-09] MEDS: FOLIC ACID 1 MG TAB PO SCH (09:00)
[2017-01-09] MEDS ORDERED: THIAMINE HCL 100 MG TAB PO SCH (09:00)
[2017-01-09] MEDS: REMOVE OLD PATCH T-DERMAL SCH (09:00)
[2017-01-09] MEDS: MULTIVITAMINS/MINERALS THERAPEUTIC TAB PO SCH (09:00)
[2017-01-09] MEDS: DOCUSATE SODIUM 50 MG/SENNA 8.6 MG TAB PO SCH ×2 (09:00→21:00)
--- NOTE | 2017-01-09 09:05 | HHI.CCPN ---
Subjective Remarks/Hospital Course 46-year-old female with a medical history significant for type 1 diabetes, hypertension, hyperlipidemia, alcohol abuse who was admitted on 01/08 by hospitalist service after presenting with nausea vomiting abdominal pain following intake of 5 alcoholic beverages including vodka water and Crystal light powder at home. She also noted her blood glucose to be in the 600 range at home gave herself 15 units of NovoLog insulin prior to coming to the hospital. She was evaluated in the ER and was noted to have an anion gap metabolic acidosis with positive ketones. She was accepted for admission by hospitalist service and was admitted to the floor. A metabolic acidosis continued to worsen on the floor. She developed worsening mental status as well and was rushed to the ICU around 5:30 AM on 01/09 with florid diabetic ketoacidosis. She was initiated on DKA protocol and critical care consult was requested by hospitalist service. She was hypotensive on arrival to the ICU and was given 2 L normal saline bolus by consulting sme intensivists covering from the main hospital. She continued to drop her blood pressure hence was started on Levophed for pressor support while bolusing fluids and a right IJ central line was placed for central vascular access for administration of pressors and multiple fluid boluses following my arrival. At the time of my evaluation patient was stuporous though arousable with repeated stimulation though was not following commands and was nonverbal. She was on 2 L nasal cannula at the time and had been started on Levophed around 6 mics per minute at the time of my evaluation while receiving her second liter of normal saline bolus. She had a Angel catheter placed and was making urine. She had been started on an insulin drip around 6 units an hour and I ordered additional 10 units regular insulin IV push. Patient had received 3 amps of bicarbonate for severe metabolic acidosis with a bicarbonate of around 4. A CAT scan of her abdomen done on 01/08 in the ER revealed possible liver masses versus hypodense lesions. Reportedly due to insurance reasons she had to change from Lantus insulin to NPH temporarily until her insurance was able to cover the Lantus. She indicates her primary medical doctor knew about this and has been adjusting her medications. ROS - General Review of Systems Unable to be obtained due to altered mental status PFSH Past Family Social History Past Medical History Hypertension Hyperlipidemia Diabetes type 1 Past Surgical History Left great toe amputation Reported Medications Reported Meds & Active Scripts Active Reported Novolog Inj (Insulin Aspart) 100 Unit/Ml Inj Allergies: Coded Allergies: Penicillin (Verified Allergy, Severe, SWELLING, 01/08/17) Family History Reviewed and significant for father at age 58 from diabetes, sister from seizures Social History Patient continues to smoke at least one pack a cigarettes a day since she was 13 years old. She does drink approximately 34 times weekly. Patient denied any illicit drug use, however records indicate that she admitted to marijuana use to the hospitalists. Objective Vital Signs Date Time Temp Pulse Resp B/P Pulse Ox O2 Delivery O2 Flow Rate FiO2 01/09/17 07:40 98 Nasal Cannula 1.50 01/09/17 04:00 96.0 130 28 97/60 Intake and Output 01/08/17 01/08/17 01/09/17 08:00 16:00 00:00 Intake Total 1000 ml 1000 ml Balance 1000 ml 1000 ml Result Diagram: 01/09/17 0520 01/09/17 0800 Other Results Laboratory Tests Test 01/09/17 01/09/17 05:03 06:28 Blood Gas Puncture Site RT BRACHIAL RT RADIAL Blood Gas Patient Temperature 37.0 37.0 Blood Gas HCO3 2 mmol/L 5 mmol/L (22-26) (22-26) Blood Gas Base Excess -29.2 mmol/L -23.0 mmol/L (-2-2) (-2-2) Blood Gas Oxygen Saturation 94 % (90-100) 95 % (90-100) Arterial Blood pH 6.88 7.09 (7.380-7.420) (7.380-7.420) Arterial Blood Partial 9 mmHg (38-42) 18 mmHg (38-42) Pressure CO2 Arterial Blood Partial 143 mmHg 115 mmHg Pressure O2 (61-120) (61-120) Arterial Blood Oxygen Content 17.2 Vol % 16.2 Vol % (12.0-20.0) (12.0-20.0) Arterial Blood 0.8 % (0-4) 1.1 % (0-4) Carboxyhemoglobin Arterial Blood Methemoglobin 1.7 % (0-2) 1.6 % (0-2) Blood Gas Hemoglobin 12.8 G/DL 12.0 G/DL (12.0-16.0) (12.0-16.0) Oxygen Delivery Device ROOM AIR NASAL CANNULA Blood Gas Inspired Oxygen 21 % Blood Gas Liter Flow 2 L/M Imaging Last Impressions Chest X-Ray 01/09/17 0000 Signed Impressions: Service Date/Time: January 07:22 - CONCLUSION: 1. Right internal jugular central in place with the tip at the inferior aspect of the right atrium. 2. Diffuse increased interstitial markings representing underlying diffuse processes such as edema. Christopher Lamb MD Abdomen/Pelvis CT 01/08/17 1027 Signed Impressions: Service Date/Time: Sunday, January 08, 2017 11:20 - CONCLUSION: 1. No definite CT findings to explain patient's abdominal pain 2. Liver is enlarged measuring 20 cm with 2 ill-defined hypodense masses. 2.4 x 2.4 x 2.4 cm mass in segment 4 and 3.2 x 3.3 x 3.2 cm mass in segment 6. Although the findings may reflect focal fat, differential considerations include both benign and malignant etiologies as there are no characteristic findings to support a specific diagnosis. Recommend further characterization with multiphase liver mass protocol MRI or CT exam particularly if patient has a history of EtOH abuse, hepatitis, or malignancy. 3. Normal appendix. 4. Calcified uterine leiomyomas. 5. Subcentimeter cystic lesions in the left kidney are too small to fully characterize. Statistically these reflect cysts. Jw Cornell MD Urinary Catheter: Yes Assessment to: Continue Vascular Central Line Catheter: Yes Assessment to: Continue Date of Insertion: Jan 09, 2017 Line: Central Venous Catheter Side: Right Location: Jugular A/P Assessment and Plan 46-year-old female with: Diabetic ketoacidosis Hypotension dehydration alcohol abuse liver masses Encephalopathy Question of pancreatitis Plan: Neuro: Follow neuro status. Alcohol withdrawal protocol ordered with when necessary Ativan. Thiamine folic acid MVI. Cardiovascular: Aggressive fluid resuscitation. Levophed being transitioned to Indra-Synephrine for pressor support in view of tachycardia. Suspect hypotension is secondary to severe metabolic acidosis and dehydration secondary to DKA. Pulmonary: Supplemental O2 as needed. Patient tachypneic secondary to ketoacidosis. Hopefully with correction of DKA her tachypnea will improve. Currently appears to be protecting airway however may require intubation if DKA worsens. GI/liver: Nothing by mouth for now. GI consult requested for further evaluation of liver masses are noted on CT abdomen pelvis. LFTs normal. Renal/ : IV hydration, strict intake output, monitor and replete electrolites, follow BUN creatinine. 4 L of fluid bolus ordered. Continue maintenance IV fluid. ID: Leukocytosis noted. Possible aspiration, Possibly stress response secondary to DKA versus pancreatitis. Will obtain blood cultures 2, repeat UA and urine culture and initiate empiric antibiotic coverage with IV Levaquin. Endocrine: Insulin drip per DKA protocol. Given 10 units regular insulin IV earlier. Follow serial labs and fingerstick glucose per DKA protocol. Prophylaxis: PPI/SCDs/heparin. Discussed current clinical status with patient's family at bedside and updated them regarding plan of care and they voiced understanding and were agreeable. Condition critical with severe DKA with hypotension requiring pressors and possible need for intubation. Time spent on critical care excluding procedures 70 minutes Graham Roberts MD Jan 09, 2017 09:05
[2017-01-09] MEDS ORDERED: TERBUTALINE INJ 1 MG/ML AMP SQ PRN (09:15)
[2017-01-09 09:23] LABS: BLOOD GAS BASE EXCESS -18.2 mmol/L (-2-2); BLOOD GAS CARBOXYHEMOGLOBIN 1.3 % (0-4); BLOOD GAS HCO3 8 mmol/L (22-26); BLOOD GAS METHEMOGLOBIN 1.8 % (0-2); BLOOD GAS O2 HGB SATURATION 92 % (90-100); BLOOD GAS OXYGEN CONTENT 14.5 Vol % (12.0-20.0); BLOOD GAS PCO2 20 mmHg (38-42); BLOOD GAS PO2 81 mmHg (61-120); BLOOD GAS TOTAL HGB 11.1 G/DL (12.0-16.0)
[2017-01-09 09:24] LABS: CRITICAL VALUE YES; DRAW SITE LT RADIAL; LITER FLOW 1.5 L/M; NUMBER OF ARTERIAL PUNCTURES 2; OXYGEN DEVICE NASAL CANNULA; STAT NO; ULNAR PULSE PRESENT
[2017-01-09] MEDS: PANTOPRAZOLE SODIUM 40 MG VIAL IV PUSH SCH (09:26)
[2017-01-09] MEDS: HEPARIN SODIUM - SQ 10,000 UNITS/ML VIAL SQ SCH ×2 (09:27→21:45)
[2017-01-09] MEDS: LEVOFLOXACIN 750 MG PREMIX INJ 150 ML IV SCH (09:27)
[2017-01-09] MEDS: SODIUM CHLORIDE 0.9% FLUSH 10 ML FLUSH IV FLUSH SCH ×2 (09:28→21:31)
[2017-01-09] MEDS: NICOTINE 14 MG/24 HR PATCH T-DERMAL SCH (09:32)
[2017-01-09] MEDS ORDERED: INFLUENZA VIRUS VACCINE (QUADRIVALENT) 0.5 ML SYR IM ONE (10:00)
[2017-01-09] MEDS: POTASSIUM CHLOR 40 MEQ PREMIX 100 ML IV PRN ×3 (10:30→11:55)
[2017-01-09] MEDS ORDERED: PHENYLEPHRINE INJ 40 MG in DEXTROSE 5% IN WATE 500 ML INJ 496 ML IV SCH ×2 (11:00)
[2017-01-09 11:13] LABS: BLOOD, URINE LARGE (NEG); GLUCOSE,URINE 100 mg/dL (NEG); NITRITE,URINE NEG (NEG)
[2017-01-09 11:25] LABS: KETONE, URINE 80 OR GREATER mg/dL (NEG); METHOD OF COLLECTION CATH; URINE COLOR YELLOW (YELLW/STRAW)
[2017-01-09 11:27] LABS: WHITE BLOOD CELL CAST, URINE 15-19 /lpf
[2017-01-09 11:28] LABS: BACTERIA, URINE FEW /hpf; COMMENT (UR) CATH-CULTURE IND; CULTURE IF INDICATED CATH CULTURE IND; RBC, URINE INNUM /hpf (0-3)
[2017-01-09 11:29] LABS: POTASSIUM 3.1 MEQ/L (3.5-5.1)
[2017-01-09] MEDS: NORMOSOL R INJ 1,000 ML IV SCH ×3 (11:30→14:17)
[2017-01-09 11:46] LABS: BICARBONATE 12.6 MEQ/L (21.0-32.0); MAGNESIUM 1.6 MG/DL (1.5-2.5)
[2017-01-09 12:04] LABS: CALCIUM-PROTEIN CORRECTED 7.8 MG/DL (8.5-10.1)
[2017-01-09] MEDS ORDERED: SODIUM PHOSPHATE INJ 30 MMOL in SODIUM CHLOR 0.9% 250 ML INJ 250 ML IV ONE (13:00)
[2017-01-09] MEDS: DEXTROSE 50% IN WATER 50 ML VIAL(D50) IV PRN ×3 (13:03→21:40)
[2017-01-09 14:46] LABS: POTASSIUM 3.9 MEQ/L (3.5-5.1)
[2017-01-09 14:58] LABS: BICARBONATE 17.7 MEQ/L (21.0-32.0); MAGNESIUM 1.9 MG/DL (1.5-2.5)
[2017-01-09 15:10] LABS: BETA-HYDROXYBUTYRATE 0.62 MMOL/L (0.00-0.39)
[2017-01-09 15:14] LABS: CALCIUM-PROTEIN CORRECTED 7.4 MG/DL (8.5-10.1)
--- NOTE | 2017-01-09 15:54 | EKG ---
Date Performed: 01/08/2017 Time Performed: 09:51:58 PTAGE: 46 years EKG: Sinus tachycardia Normal ECG except for rate Since prior tracing heart rate has slowed and ST changes has improved. PREVIOUS TRACING : 02/28/2013 13.27 DOCTOR: Maxim eWbb Interpretating Date/Time 01/09/2017 15:52:42
[2017-01-09] MEDS: DEXT 5%-NACL 0.45% 1000 ML INJ 1,000 ML IV SCH ×2 (16:30→21:31)
[2017-01-09] MEDS ORDERED: CALCIUM GLUCONATE INJ 2 GM in SODIUM CHLORIDE 0.9% INJ 100 ML IV ONE (18:00)
[2017-01-09] MEDS ORDERED: DEXMEDETOMIDINE INJ 200 MCG in SODIUM CHLORIDE 0.9% INJ 50 ML IV SCH (18:15)
--- NOTE | 2017-01-09 18:34 | MB ---
cc: DELFINA ROBERTS MD,TERESE DOW,ANJELICA SINGLETON MD DATE OF CONSULTATION 01/09/[address] Anjelica Obrien REASON FOR CONSULTATION Diabetic ketoacidosis with pancreatitis. HISTORY OF PRESENT ILLNESS Ms. Cantor is a 46-year-old lady who basically came in with diabetic ketoacidosis, was found to have elevated lipase levels as well. Apparently, her condition worsened overnight and she was moved to the intensive care unit. Currently, she is not responsive, but she has received Ativan and morphine a little while ago. At this time, she is making good about of urine. She is on nasal cannula and generally seems stable, although requiring some epinephrine for blood pressure. REVIEW OF SYSTEMS No GI bleeding. No hematemesis or hematochezia reported. PAST MEDICAL HISTORY 1. Hypertension, 2. Hyperlipidemia, 3. Diabetes. PAST SURGICAL HISTORY 1. C section 2. Toe amputation. MEDICATIONS On admission Insulin. ALLERGIES [place] FAMILY HISTORY Significant for diabetes. SOCIAL HISTORY The patient is a smoker, also drinks alcohol. PHYSICAL EXAMINATION GENERAL: A well-nourished lady in no apparent distress. VITAL SIGNS: Stable. HEAD/NECK: Anicteric sclerae. CHEST: Bilateral air entry with rales. ABDOMEN: Soft. 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 RECTAL: Exam deferred at this time. LABORATORY DATA Glucose of 477, sodium of 144, lipase 3172. White cell count of 21,000. IMAGING STUDIES CT of the abdomen and pelvis reveals two spots in the liver of unclear significance, no evidence of pancreatitis. IMPRESSION Diabetic ketoacidosis, pancreatitis which is secondary to alcohol. RECOMMENDATIONS Aggressive IV fluid rehydration. This has been discussed with Dr. Roberts. Monitor renal functions closely. N.p.o. at this time. Start clear liquid diet once patient able to tolerate p.o. Overall prognosis remains guarded. This has been discussed with the patient's mother and father at the bedside. Continue to follow labs. We will follow with you. Thank you for this referral. MD DONNA Pollard/ /5:21 PM /6:24 PM
[2017-01-09 21:56] LABS: BICARBONATE 20.8 MEQ/L (21.0-32.0); MAGNESIUM 1.4 MG/DL (1.5-2.5)
[2017-01-09 22:08] LABS: CALCIUM-PROTEIN CORRECTED 7.9 MG/DL (8.5-10.1)
[2017-01-09] MEDS: POTASSIUM CHLOR 20 MEQ PREMIX 100 ML IV PRN (22:26)
[2017-01-09] MEDS: MAGNESIUM SULFATE 1 GM PREMIX 100 ML IV SCH ×2 (22:28→23:49)
[2017-01-09] MEDS ORDERED: SODIUM PHOSPHATE INJ 15 MMOL in SODIUM CHLORIDE 0.9% INJ 150 ML IV ONE (23:00)
[2017-01-10] VITALS (57 sets, daily range): BP systolic 72–113; BP diastolic 48–75; PULSE 92–120; RESP 22–43; TEMP 97.8–100.1; O2SAT 90–100
[2017-01-10 00:40] LABS: BLOOD GAS BASE EXCESS -7.7 mmol/L (-2-2); BLOOD GAS CARBOXYHEMOGLOBIN 1.2 % (0-4); BLOOD GAS HCO3 17 mmol/L (22-26); BLOOD GAS METHEMOGLOBIN 1.1 % (0-2); BLOOD GAS O2 HGB SATURATION 92 % (90-100); BLOOD GAS OXYGEN CONTENT 16.1 Vol % (12.0-20.0); BLOOD GAS PCO2 35 mmHg (38-42); BLOOD GAS PO2 68 mmHg (61-120); BLOOD GAS TOTAL HGB 12.4 G/DL (12.0-16.0); CRITICAL VALUE NO; OXYGEN DEVICE NASAL CANNULA
[2017-01-10 00:41] LABS: DRAW SITE RT RADIAL; LITER FLOW 6 L/M; NUMBER OF ARTERIAL PUNCTURES 1; STAT YES; ULNAR PULSE PRESENT
[2017-01-10] MEDS: POTASSIUM CHLOR 20 MEQ PREMIX 100 ML IV PRN ×3 (00:53→03:02)
[2017-01-10] MEDS ORDERED: POTASSIUM CHLORIDE INJ 20 MEQ in DEXTROSE 5%-NACL 0.225% INJ 1,000 ML IV SCH (04:00)
[2017-01-10 05:10] LABS: BETA-HYDROXYBUTYRATE 0.45 MMOL/L (0.00-0.39); MAGNESIUM 1.8 MG/DL (1.5-2.5)
[2017-01-10 05:21] LABS: CALCIUM-PROTEIN CORRECTED 7.5 MG/DL (8.5-10.1)
[2017-01-10] MEDS ORDERED: SODIUM PHOSPHATE INJ 15 MMOL in SODIUM CHLORIDE 0.9% INJ 150 ML IV ONE (06:00)
--- NOTE | 2017-01-10 06:16 | RADHPO ---
EXAM DATE/TIME: 01/10/2017 06:09 [facility] COMPARISON: CHEST SINGLE AP, January 09, 2017, 7:22. INDICATIONS : Shortness of breath MEDICAL HISTORY : Hypertension. Hypercholesterolemia. Diabetes mellitus type II. SURGICAL HISTORY : None. ENCOUNTER: Subsequent ACUITY: 2 days PAIN SCORE: Non-responsive. LOCATION: Bilateral chest FINDINGS: Diffuse air space opacities again seen of both lungs, both sides modestly worse in the interim. No la rge effusion seen. No pneumothorax. Heart size stable, within normal limits. Right internal jugular central venous catheter with tip in the right atrium unchanged. CONCLUSION: Modestly worse diffuse parenchymal opacities of both lungs. Christopher Altman MD on January 10, 2017 at 6:13 Board Certified Radiologist. This report was verified electronically.
[2017-01-10] MEDS: INSULIN DETEMIR 100 UNITS/ML VIAL SQ SCH ×3 (08:02→21:27)
[2017-01-10] MEDS ORDERED: FUROSEMIDE 20 MG/2 ML VIAL IV PUSH ONE ×2 (08:15)
--- NOTE | 2017-01-10 08:23 | HHI.CCPN ---
Subjective Remarks/Hospital Course 46-year-old female with a medical history significant for type 1 diabetes, hypertension, hyperlipidemia, alcohol abuse who was admitted on 01/08 by hospitalist service after presenting with nausea vomiting abdominal pain following intake of 5 alcoholic beverages including vodka water and Crystal light powder at home. She also noted her blood glucose to be in the 600 range at home gave herself 15 units of NovoLog insulin prior to coming to the hospital. She was evaluated in the ER and was noted to have an anion gap metabolic acidosis with positive ketones. She was accepted for admission by hospitalist service and was admitted to the floor. A metabolic acidosis continued to worsen on the floor. She developed worsening mental status as well and was rushed to the ICU around 5:30 AM on 01/09 with florid diabetic ketoacidosis. She was initiated on DKA protocol and critical care consult was requested by hospitalist service. She was hypotensive on arrival to the ICU and was given 2 L normal saline bolus by shift coordinator intensivists covering from the main hospital. She continued to drop her blood pressure hence was started on Levophed for pressor support while bolusing fluids and a right IJ central line was placed for central vascular access for administration of pressors and multiple fluid boluses following my arrival. At the time of my evaluation patient was stuporous though arousable with repeated stimulation though was not following commands and was nonverbal. She was on 2 L nasal cannula at the time and had been started on Levophed around 6 mics per minute at the time of my evaluation while receiving her second liter of normal saline bolus. She had a Angel catheter placed and was making urine. She had been started on an insulin drip around 6 units an hour and I ordered additional 10 units regular insulin IV push. Patient had received 3 amps of bicarbonate for severe metabolic acidosis with a bicarbonate of around 4. A CAT scan of her abdomen done on 01/08 in the ER revealed possible liver masses versus hypodense lesions. Reportedly due to insurance reasons she had to change from Lantus insulin to NPH temporarily until her insurance was able to cover the Lantus. She indicates her primary medical doctor knew about this and has been adjusting her medications. 01/10: Require Lasix last night as chest x-ray showed evidence of fluid overload and she was having respiratory distress. Off pressors since yesterday. Was on Precedex transiently last night however that made her hypotensive so it has been held currently. Received 1 dose of Ativan around 10 PM last night. This morning she is drowsy though arousable. Disoriented at the time of my evaluation. Per RN and her sister who was at the bedside she does wake up and occasionally responds. Objective Vital Signs Date Time Temp Pulse Resp B/P Pulse Ox O2 Delivery O2 Flow Rate FiO2 01/10/17 06:15 92 24 83/54 96 01/10/17 05:46 Nasal Cannula 4.00 01/10/17 04:00 98.2 Intake and Output 01/09/17 01/09/17 01/10/17 08:00 16:00 00:00 Intake Total 0 ml 5867 ml Output Total 625 ml 1300 ml Balance -625 ml 4567 ml Result Diagram: 01/09/17 0520 01/10/17 0415 Other Results Laboratory Tests Test 01/09/17 01/09/17 01/09/17 01/09/17 09:17 10:45 10:50 14:15 Blood Gas Puncture Site LT RADIAL Blood Gas Patient Temperature 37.0 Blood Gas HCO3 8 mmol/L Blood Gas Base Excess -18.2 mmol/L Blood Gas Oxygen Saturation 92 % Arterial Blood pH 7.24 Arterial Blood Partial 20 mmHg Pressure CO2 Arterial Blood Partial 81 mmHg Pressure O2 Arterial Blood Oxygen Content 14.5 Vol % Arterial Blood 1.3 % Carboxyhemoglobin Arterial Blood Methemoglobin 1.8 % Blood Gas Hemoglobin 11.1 G/DL Oxygen Delivery Device NASAL CANNULA Blood Gas Liter Flow 1.5 L/M Sodium Level 155 MEQ/L 154 MEQ/L Potassium Level 3.1 MEQ/L 3.9 MEQ/L Chloride Level 122 MEQ/L 123 MEQ/L Carbon Dioxide Level 12.6 MEQ/L 17.7 MEQ/L Anion Gap 20 MEQ/L 13 MEQ/L Blood Urea Nitrogen 8 MG/DL 6 MG/DL Creatinine 1.00 MG/DL 0.89 MG/DL Estimat Glomerular Filtration 59 ML/MIN 68 ML/MIN Rate Random Glucose 174 MG/DL 211 MG/DL Calcium Level 6.9 MG/DL 6.5 MG/DL Protein Corrected Calcium 7.8 MG/DL 7.4 MG/DL Phosphorus Level 0.6 MG/DL 0.5 MG/DL Magnesium Level 1.6 MG/DL 1.9 MG/DL Total Protein 5.4 GM/DL 5.3 GM/DL Urine Collection Type CATH Urine Color YELLOW Urine Turbidity SLIGHT Urine pH 5.0 Urine Specific [place] 1.028 Urine Protein 100 mg/dL Urine Glucose (UA) 100 mg/dL Urine Ketones 80 OR GREATER mg/dL Urine Occult Blood LARGE Urine Nitrite NEG Urine Bilirubin NEG Urine Leukocyte Esterase TRACE Urine RBC INNUM /hpf Urine WBC 50-99 /hpf Urine WBC Clumps FEW Urine Bacteria FEW /hpf Urine Granular Casts 25-49 /lpf Urine White Blood Cell Casts 15-19 /lpf Microscopic Urinalysis Comment CATH-CULTURE IND Urine Collection Time 10:50 B-Hydroxybutyrate 0.62 MMOL/L Test 01/09/17 01/09/17 01/09/17 01/10/17 16:20 21:36 23:15 00:30 Lactic Acid Level 5.3 mmol/L Sodium Level 153 MEQ/L Potassium Level 3.0 MEQ/L Chloride Level 121 MEQ/L Carbon Dioxide Level 20.8 MEQ/L Anion Gap 11 MEQ/L Blood Urea Nitrogen 4 MG/DL Creatinine 0.67 MG/DL Estimat Glomerular Filtration 94 ML/MIN Rate Random Glucose 129 MG/DL Calcium Level 6.8 MG/DL Protein Corrected Calcium 7.9 MG/DL Phosphorus Level 1.9 MG/DL Magnesium Level 1.4 MG/DL Total Protein 5.0 GM/DL B-Type Natriuretic Peptide 311 PG/ML Blood Gas Puncture Site RT RADIAL Blood Gas Patient Temperature 37.0 Blood Gas HCO3 17 mmol/L Blood Gas Base Excess -7.7 mmol/L Blood Gas Oxygen Saturation 92 % Arterial Blood pH 7.31 Arterial Blood Partial 35 mmHg Pressure CO2 Arterial Blood Partial 68 mmHg Pressure O2 Arterial Blood Oxygen Content 16.1 Vol % Arterial Blood 1.2 % Carboxyhemoglobin Arterial Blood Methemoglobin 1.1 % Blood Gas Hemoglobin 12.4 G/DL Oxygen Delivery Device NASAL CANNULA Blood Gas Liter Flow 6 L/M Test 01/10/17 04:15 Sodium Level 147 MEQ/L Potassium Level 4.0 MEQ/L Chloride Level 116 MEQ/L Carbon Dioxide Level 22.0 MEQ/L Anion Gap 9 MEQ/L Blood Urea Nitrogen 3 MG/DL Creatinine 0.52 MG/DL Estimat Glomerular Filtration 126 ML/MIN Rate Random Glucose 282 MG/DL Lactic Acid Level 1.9 mmol/L Calcium Level 6.5 MG/DL Protein Corrected Calcium 7.5 MG/DL Phosphorus Level 1.8 MG/DL Magnesium Level 1.8 MG/DL Total Protein 5.0 GM/DL B-Hydroxybutyrate 0.45 MMOL/L Imaging CXR 01/10: Pulmonary edema Last Impressions Chest X-Ray 01/09/17 0000 Signed Impressions: Service Date/Time: January 07:22 - CONCLUSION: 1. Right internal jugular central in place with the tip at the inferior aspect of the right atrium. 2. Diffuse increased interstitial markings representing underlying diffuse processes such as edema. Christopher Lamb MD Abdomen/Pelvis CT 01/08/17 1027 Signed Impressions: Service Date/Time: Sunday, January 08, 2017 11:20 - CONCLUSION: 1. No definite CT findings to explain patient's abdominal pain 2. Liver is enlarged measuring 20 cm with 2 ill-defined hypodense masses. 2.4 x 2.4 x 2.4 cm mass in segment 4 and 3.2 x 3.3 x 3.2 cm mass in segment 6. Although the findings may reflect focal fat, differential considerations include both benign and malignant etiologies as there are no characteristic findings to support a specific diagnosis. Recommend further characterization with multiphase liver mass protocol MRI or CT exam particularly if patient has a history of EtOH abuse, hepatitis, or malignancy. 3. Normal appendix. 4. Calcified uterine leiomyomas. 5. Subcentimeter cystic lesions in the left kidney are too small to fully characterize. Statistically these reflect cysts. Jw Cornell MD Objective Remarks HEENT/Neuro: No pallor or icterus, tongue moist, GLENN, drowsy, disoriented, arousable, occasionally verbalizes,, nonfocal grossly, moving all 4 extremities Neck: No JVD Chest/pulmonary: Bibasilar crackles Cardiovascular: S1-S2 regular no gallop or murmur GI/abdomen: Soft, nontender, bowel sounds present Extremities: Warm bilaterally, no edema Date of Insertion: Jan 09, 2017 Line: Central Venous Catheter Side: Right Location: Jugular A/P Assessment and Plan 46-year-old female with: Diabetic ketoacidosis Hypotension dehydration alcohol abuse liver masses Encephalopathy Question of pancreatitis Plan: Neuro: Follow neuro status. Alcohol withdrawal protocol ordered with when necessary Ativan. Thiamine folic acid MVI. Cardiovascular: s/p aggressive fluid resuscitation. Off Indra-Synephrine. Suspect hypotension is secondary to severe metabolic acidosis and dehydration secondary to DKA versus pancreatitis. Diuresed on 01/10 is chest x-ray shows pulmonary edema Pulmonary: Supplemental O2 as needed. Diurese with Lasix. GI/liver: Nothing by mouth for now. GI consult requested for further evaluation of liver masses are noted on CT abdomen pelvis. LFTs normal. Follow amylase/lipase which was elevated initially. Concern for pancreatitis. Renal/ : IV hydration, strict intake output, monitor and replete electrolites, follow BUN creatinine. 4 L of fluid bolus ordered. Continue maintenance IV fluid. ID: Leukocytosis noted. Possible aspiration, Possibly stress response secondary to DKA versus pancreatitis. Follow-up blood cultures 2, repeat UA and urine culture and initiate empiric antibiotic coverage with IV Levaquin. Endocrine: On DKA protocol with improvement of diabetic ketoacidosis. Being transitioned from insulin drip to Levemir 10 units twice a day and sliding scale insulin. Continue D5 1/2 NS at 75 cc an hour as she is currently nothing by mouth. Prophylaxis: PPI/SCDs/heparin. Discussed current clinical status with patient's family at bedside and updated them regarding plan of care and they voiced understanding and were agreeable. Condition critical with severe DKA with hypotension, encephalopathy and now pulmonary edema Time spent on critical care excluding procedures 30 minutes Graham Roberts MD Jan 10, 2017 08:23
[2017-01-10] MEDS: PANTOPRAZOLE SODIUM 40 MG VIAL IV PUSH SCH (08:27)
[2017-01-10] MEDS: NICOTINE 14 MG/24 HR PATCH T-DERMAL SCH (08:27)
[2017-01-10] MEDS: HEPARIN SODIUM - SQ 10,000 UNITS/ML VIAL SQ SCH ×2 (08:27→21:28)
[2017-01-10] MEDS: SODIUM CHLORIDE 0.9% FLUSH 10 ML FLUSH IV FLUSH SCH ×2 (08:28→21:11)
[2017-01-10] MEDS: DOCUSATE SODIUM 50 MG/SENNA 8.6 MG TAB PO SCH ×2 (08:28→21:00)
[2017-01-10] MEDS: FOLIC ACID 1 MG TAB PO SCH (08:28)
[2017-01-10] MEDS: LEVOFLOXACIN 750 MG PREMIX INJ 150 ML IV SCH (08:28)
[2017-01-10] MEDS: MULTIVITAMINS/MINERALS THERAPEUTIC TAB PO SCH (08:29)
[2017-01-10] MEDS: REMOVE OLD PATCH T-DERMAL SCH (09:00)
[2017-01-10] MEDS ORDERED: INSULIN ASPART SUPPLEMENTAL SCALE SQ SCH (11:00)
[2017-01-10] MEDS: INSULIN ASPART SUPPLEMENTAL SCALE SQ SCH ×3 (11:19→20:00)
[2017-01-10] MEDS ORDERED: MAGNESIUM SULFATE INJ 2 GM in SODIUM CHLORIDE 0.9% INJ 96 ML IV PRN (11:30)
[2017-01-10] MEDS ORDERED: POTASSIUM CHLOR 20 MEQ PREMIX 100 ML IV PRN ×2 (11:30)
[2017-01-10] MEDS ORDERED: SODIUM PHOSPHATE INJ 30 MMOL in SODIUM CHLOR 0.9% 250 ML INJ 240 ML IV PRN (11:30)
[2017-01-10] MEDS ORDERED: MAGNESIUM OXIDE 400 MG TAB PO PRN (11:30)
[2017-01-10] MEDS ORDERED: POTASSIUM PHOSPHATE MONOBASIC 500 MG TAB PO/TUBE PRN (11:30)
[2017-01-10] MEDS ORDERED: POTASSIUM CHLOR 40 MEQ PREMIX 100 ML IV PRN ×2 (11:30)
[2017-01-10] MEDS ORDERED: POTASSIUM PHOSPHATE MONOBASIC 500 MG TAB PO PRN (11:30)
[2017-01-10] MEDS ORDERED: POTASSIUM CHLORIDE 25 MEQ EFFERVESCENT TAB PO PRN (11:30)
[2017-01-10] MEDS ORDERED: MAGNESIUM SULFATE INJ 4 GM in SODIUM CHLORIDE 0.9% INJ 92 ML IV PRN (11:30)
[2017-01-10] MEDS: THIAMINE INJ 100 MG in SODIUM CHLORIDE 0.9% INJ 100 ML IV SCH (11:41)
[2017-01-10] MEDS ORDERED: CHLORHEXIDINE GLUCONATE 2 % 1 PACK (2 CLOTHS)(extra cloths) TOPICAL PRN (12:00)
[2017-01-10] MEDS ORDERED: LORazepam 2 MG/ML VIAL IV PUSH ONE (12:15)
[2017-01-10] MEDS ORDERED: GADODIAMIDE PF 287 MG/ML 10 ML VIAL (for RAD MRI) IV ONE (13:05)
--- NOTE | 2017-01-10 14:14 | RADHPO ---
EXAM DATE/TIME: 01/10/2017 12:47 [facility] COMPARISON: CT ABDOMEN & PELVIS W CONTRAST, January 08, 2017, 11:20. INDICATIONS : Liver mass. Pain in abdomen. CONTRAST: 10 cc Omniscan (gadodiamide) IV MEDICAL HISTORY : Diabetes mellitus type 2. SURGICAL HISTORY : Amputation left great toe. ENCOUNTER: Initial ACUITY: 1 day PAIN SCORE: 6/10 LOCATION: Abdomen. TECHNIQUE: Multiplanar, multisequence magnetic resonance imaging of the abdomen was performed without and with i ntravenous contrast. FINDINGS: Examination is essentially nondiagnostic due to significant patient breathing motion during all sequences. LIVER: Mass 1: Mass noted in the posterior segment 6 demonstrates hypointense T1 signal, nearly isointense T 2 signal with signal loss on out of phase imaging. This mass demonstrates peripheral early arterial e nhancement and is isoechoic on more delayed imaging. Minimally hyperintense with central hyperintense signal on diffusion images. Mass 2: Mass noted in segment 4 demonstrates hypointense T1 signal, nearly isointense T2 signal with signal l oss on out of phase imaging. This mass also demonstrates peripheral early arterial enhancement and is isoechoic on delayed imaging. Isointense on diffusion images. BILIARY: There is no gross intra- or extra-hepatic biliary ductal dilatation. Gallbladder contains no signifi cant stones. SPLEEN: Grossly unremarkable KIDNEYS: Grossly unremarkable. Low density lesions on CT cannot be characterized due to significant artifact. CONCLUSION: 1. Essentially nondiagnostic examination due to patient's inability to cooperate with the exam and si gnificant respiratory motion artifact. 2. MRI exam confirms the findings on CT with 2 distinct masses in the liver, in segments 6 and 4. Sig nal characteristics are grossly indeterminant and differential considerations continue to include case ign and malignant etiologies. Further imaging may be performed with Eovist MRI examination once patie nt is able to cooperate with exam. Ultimately, patient may require biopsy for definitive diagnosis. Jw Cornell MD on January 10, 2017 at 13:40 Board Certified Radiologist. This report was verified electronically.
[2017-01-10 14:15] LABS: AMYLASE 266 U/L (25-115)
[2017-01-10] MEDS ORDERED: DEXT 5%-NACL 0.45% 1000 ML INJ 1,000 ML IV SCH (14:15)
--- NOTE | 2017-01-10 14:23 | HHI.GIFU ---
GI Follow-up Note Consult Follow-up Subjective: Patient laying in bed comfortably, no new complaints except more awake today. No pain Objective: PHYSICAL EXAMINATION: Vitals signs stable No fever HEENT: Pupils round and reactive to light; normocephalic; atraumatic; no jaundice. Throat is clear. NECK: Neck is supple, no JVD, no lymphadenopathy. CHEST: Chest is clear to auscultation and percussion. CARDIAC: Regular rate and rhythm with no murmur gallop or rubs. ABDOMEN: Soft, nondistended, nontender; no hepatosplenomegaly; bowel sounds are present in all four quadrants. EXTREMITIES: No clubbing, cyanosis, or edema. SKIN: Normal; no rash; no jaundice. 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 Available Data (labs, X- Rays, Procedues) : Last Impressions Chest X-Ray 01/10/17 0600 Signed Impressions: Service Date/Time: Tuesday, January 10, 2017 06:09 - CONCLUSION: Modestly worse diffuse parenchymal opacities of both lungs. Christopher Altman MD Abdomen/Pelvis CT 01/08/17 1027 Signed Impressions: Service Date/Time: Sunday, January 08, 2017 11:20 - CONCLUSION: 1. No definite CT findings to explain patient's abdominal pain 2. Liver is enlarged measuring 20 cm with 2 ill-defined hypodense masses. 2.4 x 2.4 x 2.4 cm mass in segment 4 and 3.2 x 3.3 x 3.2 cm mass in segment 6. Although the findings may reflect focal fat, differential considerations include both benign and malignant etiologies as there are no characteristic findings to support a specific diagnosis. Recommend further characterization with multiphase liver mass protocol MRI or CT exam particularly if patient has a history of EtOH abuse, hepatitis, or malignancy. 3. Normal appendix. 4. Calcified uterine leiomyomas. 5. Subcentimeter cystic lesions in the left kidney are too small to fully characterize. Statistically these reflect cysts. Jw Cornell MD Laboratory Tests Test 01/08/17 01/09/17 01/09/17 01/09/17 20:17 03:20 05:03 05:20 Sodium Level 145 MEQ/L 139 MEQ/L 144 MEQ/L Potassium Level 4.3 MEQ/L 5.5 MEQ/L 5.3 MEQ/L Chloride Level 112 MEQ/L 111 MEQ/L 113 MEQ/L Carbon Dioxide Level 11.6 MEQ/L 2.9 MEQ/L 4.5 MEQ/L Anion Gap 21 MEQ/L 25 MEQ/L 27 MEQ/L Blood Urea Nitrogen 9 MG/DL 9 MG/DL 10 MG/DL Creatinine 0.87 MG/DL 0.84 MG/DL 0.90 MG/DL Estimat Glomerular Filtration 69 ML/MIN 72 ML/MIN 67 ML/MIN Rate Random Glucose 224 MG/DL 440 MG/DL 477 MG/DL Calcium Level 7.5 MG/DL 7.3 MG/DL 7.2 MG/DL Protein Corrected Calcium 7.3 MG/DL 7.3 MG/DL Total Protein 7.3 GM/DL 6.9 GM/DL Blood Gas Puncture Site RT BRACHIAL Blood Gas Patient Temperature 37.0 Blood Gas HCO3 2 mmol/L Blood Gas Base Excess -29.2 mmol/L Blood Gas Oxygen Saturation 94 % Arterial Blood pH 6.88 Arterial Blood Partial 9 mmHg Pressure CO2 Arterial Blood Partial 143 mmHg Pressure O2 Arterial Blood Oxygen Content 17.2 Vol % Arterial Blood 0.8 % Carboxyhemoglobin Arterial Blood Methemoglobin 1.7 % Blood Gas Hemoglobin 12.8 G/DL Oxygen Delivery Device ROOM AIR Blood Gas Inspired Oxygen 21 % White Blood Count 21.6 TH/MM3 Red Blood Count 3.81 MIL/MM3 Hemoglobin 13.3 GM/DL Hematocrit 41.5 % Mean Corpuscular Volume 108.9 FL Mean Corpuscular Hemoglobin 34.9 PG Mean Corpuscular Hemoglobin 32.0 % Concent Red Cell Distribution Width 14.4 % Platelet Count 279 TH/MM3 Mean Platelet Volume 8.2 FL Total Bilirubin 0.3 MG/DL Direct Bilirubin 0.1 MG/DL Indirect Bilirubin 0.2 MG/DL Aspartate Amino Transf 31 U/L (AST/SGOT) Alanine Aminotransferase 39 U/L (ALT/SGPT) Alkaline Phosphatase 101 U/L Albumin 3.5 GM/DL Lipase 3172 U/L B-Hydroxybutyrate 12.31 MMOL/L Test 01/09/17 01/09/17 01/09/17 01/09/17 06:25 06:28 08:00 09:17 Lactic Acid Level 2.7 mmol/L Blood Gas Puncture Site RT RADIAL LT RADIAL Blood Gas Patient Temperature 37.0 37.0 Blood Gas HCO3 5 mmol/L 8 mmol/L Blood Gas Base Excess -23.0 mmol/L -18.2 mmol/L Blood Gas Oxygen Saturation 95 % 92 % Arterial Blood pH 7.09 7.24 Arterial Blood Partial 18 mmHg 20 mmHg Pressure CO2 Arterial Blood Partial 115 mmHg 81 mmHg Pressure O2 Arterial Blood Oxygen Content 16.2 Vol % 14.5 Vol % Arterial Blood 1.1 % 1.3 % Carboxyhemoglobin Arterial Blood Methemoglobin 1.6 % 1.8 % Blood Gas Hemoglobin 12.0 G/DL 11.1 G/DL Oxygen Delivery Device NASAL CANNULA NASAL CANNULA Blood Gas Liter Flow 2 L/M 1.5 L/M Sodium Level 153 MEQ/L Potassium Level 3.0 MEQ/L Chloride Level 120 MEQ/L Carbon Dioxide Level 8.7 MEQ/L Anion Gap 24 MEQ/L Blood Urea Nitrogen 9 MG/DL Creatinine 0.80 MG/DL Estimat Glomerular Filtration 77 ML/MIN Rate Random Glucose 239 MG/DL Calcium Level 6.5 MG/DL Protein Corrected Calcium 7.3 MG/DL Phosphorus Level 0.7 MG/DL Magnesium Level 1.8 MG/DL Total Protein 5.5 GM/DL Test 01/09/17 01/09/17 01/09/17 01/09/17 10:45 10:50 14:15 16:20 Sodium Level 155 MEQ/L 154 MEQ/L Potassium Level 3.1 MEQ/L 3.9 MEQ/L Chloride Level 122 MEQ/L 123 MEQ/L Carbon Dioxide Level 12.6 MEQ/L 17.7 MEQ/L Anion Gap 20 MEQ/L 13 MEQ/L Blood Urea Nitrogen 8 MG/DL 6 MG/DL Creatinine 1.00 MG/DL 0.89 MG/DL Estimat Glomerular Filtration 59 ML/MIN 68 ML/MIN Rate Random Glucose 174 MG/DL 211 MG/DL Calcium Level 6.9 MG/DL 6.5 MG/DL Protein Corrected Calcium 7.8 MG/DL 7.4 MG/DL Phosphorus Level 0.6 MG/DL 0.5 MG/DL Magnesium Level 1.6 MG/DL 1.9 MG/DL Total Protein 5.4 GM/DL 5.3 GM/DL Urine Collection Type CATH Urine Color YELLOW Urine Turbidity SLIGHT Urine pH 5.0 Urine Specific [place] 1.028 Urine Protein 100 mg/dL Urine Glucose (UA) 100 mg/dL Urine Ketones 80 OR GREATER mg/dL Urine Occult Blood LARGE Urine Nitrite NEG Urine Bilirubin NEG Urine Leukocyte Esterase TRACE Urine RBC INNUM /hpf Urine WBC 50-99 /hpf Urine WBC Clumps FEW Urine Bacteria FEW /hpf Urine Granular Casts 25-49 /lpf Urine White Blood Cell Casts 15-19 /lpf Microscopic Urinalysis Comment CATH-CULTURE IND Urine Collection Time 10:50 B-Hydroxybutyrate 0.62 MMOL/L Lactic Acid Level 5.3 mmol/L Test 01/09/17 01/09/17 01/10/17 01/10/17 21:36 23:15 00:30 04:15 Sodium Level 153 MEQ/L 147 MEQ/L Potassium Level 3.0 MEQ/L 4.0 MEQ/L Chloride Level 121 MEQ/L 116 MEQ/L Carbon Dioxide Level 20.8 MEQ/L 22.0 MEQ/L Anion Gap 11 MEQ/L 9 MEQ/L Blood Urea Nitrogen 4 MG/DL 3 MG/DL Creatinine 0.67 MG/DL 0.52 MG/DL Estimat Glomerular Filtration 94 ML/MIN 126 ML/MIN Rate Random Glucose 129 MG/DL 282 MG/DL Calcium Level 6.8 MG/DL 6.5 MG/DL Protein Corrected Calcium 7.9 MG/DL 7.5 MG/DL Phosphorus Level 1.9 MG/DL 1.8 MG/DL Magnesium Level 1.4 MG/DL 1.8 MG/DL Total Protein 5.0 GM/DL 5.0 GM/DL B-Type Natriuretic Peptide 311 PG/ML Blood Gas Puncture Site RT RADIAL Blood Gas Patient Temperature 37.0 Blood Gas HCO3 17 mmol/L Blood Gas Base Excess -7.7 mmol/L Blood Gas Oxygen Saturation 92 % Arterial Blood pH 7.31 Arterial Blood Partial 35 mmHg Pressure CO2 Arterial Blood Partial 68 mmHg Pressure O2 Arterial Blood Oxygen Content 16.1 Vol % Arterial Blood 1.2 % Carboxyhemoglobin Arterial Blood Methemoglobin 1.1 % Blood Gas Hemoglobin 12.4 G/DL Oxygen Delivery Device NASAL CANNULA Blood Gas Liter Flow 6 L/M Lactic Acid Level 1.9 mmol/L Amylase Level 266 U/L Lipase 809 U/L B-Hydroxybutyrate 0.45 MMOL/L Allergies Coded Allergies Type Severity Reaction Last Updated Verified Penicillin Allergy Severe SWELLING 01/08/17 Yes Active Scripts Medications Dose Route/Sig Days Date Category Novolog Inj (Insulin Aspart) 100 Unit/Ml Inj 01/08/17 Reported ASSESSMENT/PLAN: Seen and examined, doing better today. Repeat cbc and lipase ordered. MOre awake today, MRI non diagnostic. AFP ordered. Repeat MRI vs. liver biopsy next week. Dr. Terry to follow.Family at bedside. It was a pleasure seeing Gail Pascal Thank you for this consult. Entered by: Jeanne Kidd MD Jan 10, 2017 14:23
[2017-01-10 16:36] LABS: HEMATOCRIT 36.4 % (35.0-46.0); MEAN CELL VOLUME 101.1 FL (80.0-100.0); MEAN CORPUSCULAR HEMOGLOBIN 34.7 PG (27.0-34.0); MEAN CORPUSCULAR HGB CONC 34.3 % (32.0-36.0); PLATELET COUNT 157 TH/MM3 (150-450); RED CELL DISTRIBUTION WIDTH 13.6 % (11.6-17.2); REVIEW FLAG FINAL; WHITE BLOOD COUNT 9.4 TH/MM3 (4.0-11.0)
[2017-01-10 16:48] LABS: POTASSIUM 3.2 MEQ/L (3.5-5.1)
[2017-01-10 17:00] LABS: BICARBONATE 26.5 MEQ/L (21.0-32.0)
[2017-01-10 17:14] LABS: CALCIUM-PROTEIN CORRECTED 7.3 MG/DL (8.5-10.1)
--- NOTE | 2017-01-10 18:03 | EKG ---
Date Performed: 01/09/2017 Time Performed: 09:02:02 PTAGE: 46 years EKG: Sinus tachycardia. Short MT interval Possible septal infarct - age undetermined Inferior/la teral ST-T changes are nonspecific Abnormal ECG Compared to prior tracing no significant change DOCTOR: Den Luis Interpretating Date/Time 01/10/2017 18:02:00
[2017-01-10 18:22] LABS: MAGNESIUM 1.4 MG/DL (1.5-2.5)
[2017-01-10] MEDS: DEXTROSE 10%-1/2 NS 1000 ML IV SCH ×2 (18:32)
[2017-01-11] VITALS (27 sets, daily range): BP systolic 79–118; BP diastolic 63–80; PULSE 102–120; RESP 9–41; TEMP 98.8–101.8; O2SAT 91–97
[2017-01-11] MEDS: INSULIN ASPART SUPPLEMENTAL SCALE SQ SCH ×6 (03:57→20:00)
[2017-01-11] MEDS: CHLORHEXIDINE GLUCONATE 2 % 1 PACK (2 CLOTHS)(taper/protocol) TOPICAL SCH (03:58)
[2017-01-11 05:28] LABS: AUTOMATED NEUTROPHIL # 4.7 TH/MM3 (1.8-7.7); BASOPHIL # 0.1 TH/MM3 (0-0.2); BASOPHIL % 1.2 % (0.0-2.0); EOSINOPHIL % 0.5 % (0.0-4.0); HEMATOCRIT 34.4 % (35.0-46.0); HEMO FLAGS DIFF FINAL; LYMPH % 20.7 % (9.0-44.0); LYMPHOCYTE # 1.3 TH/MM3 (1.0-4.8); MEAN CELL VOLUME 100.8 FL (80.0-100.0); MEAN CORPUSCULAR HEMOGLOBIN 34.1 PG (27.0-34.0); MEAN CORPUSCULAR HGB CONC 33.8 % (32.0-36.0); MONO % 4.8 % (0.0-8.0); NEUT % 72.8 % (16.0-70.0); PLATELET COUNT 135 TH/MM3 (150-450); RED BLOOD COUNT 3.41 MIL/MM3 (4.00-5.30); RED CELL DISTRIBUTION WIDTH 12.9 % (11.6-17.2); WHITE BLOOD COUNT 6.4 TH/MM3 (4.0-11.0)
[2017-01-11 06:19] LABS: POTASSIUM 3.3 MEQ/L (3.5-5.1)
--- NOTE | 2017-01-11 06:28 | HHI.CCPN ---
Subjective Remarks/Hospital Course 46-year-old female with a medical history significant for type 1 diabetes, hypertension, hyperlipidemia, alcohol abuse who was admitted on 01/08 by hospitalist service after presenting with nausea vomiting abdominal pain following intake of 5 alcoholic beverages including vodka water and Crystal light powder at home. She also noted her blood glucose to be in the 600 range at home gave herself 15 units of NovoLog insulin prior to coming to the hospital. She was evaluated in the ER and was noted to have an anion gap metabolic acidosis with positive ketones. She was accepted for admission by hospitalist service and was admitted to the floor. A metabolic acidosis continued to worsen on the floor. She developed worsening mental status as well and was rushed to the ICU around 5:30 AM on 01/09 with florid diabetic ketoacidosis. She was initiated on DKA protocol and critical care consult was requested by hospitalist service. She was hypotensive on arrival to the ICU and was given 2 L normal saline bolus by night nurse intensivists covering from the main hospital. She continued to drop her blood pressure hence was started on Levophed for pressor support while bolusing fluids and a right IJ central line was placed for central vascular access for administration of pressors and multiple fluid boluses following my arrival. At the time of my evaluation patient was stuporous though arousable with repeated stimulation though was not following commands and was nonverbal. She was on 2 L nasal cannula at the time and had been started on Levophed around 6 mics per minute at the time of my evaluation while receiving her second liter of normal saline bolus. She had a De catheter placed and was making urine. She had been started on an insulin drip around 6 units an hour and I ordered additional 10 units regular insulin IV push. Patient had received 3 amps of bicarbonate for severe metabolic acidosis with a bicarbonate of around 4. A CAT scan of her abdomen done on 01/08 in the ER revealed possible liver masses versus hypodense lesions. Reportedly due to insurance reasons she had to change from Lantus insulin to NPH temporarily until her insurance was able to cover the Lantus. She indicates her primary medical doctor knew about this and has been adjusting her medications. 01/10: Require Lasix last night as chest x-ray showed evidence of fluid overload and she was having respiratory distress. Off pressors since yesterday. Was on Precedex transiently last night however that made her hypotensive so it has been held currently. Received 1 dose of Ativan around 10 PM last night. This morning she is drowsy though arousable. Disoriented at the time of my evaluation. Per RN and her sister who was at the bedside she does wake up and occasionally responds. 01/11: off vasopressors. off precedex. slightly tachycardic today, but appears clinically euvolemic. much more awake, and complains she is hungry. started on clear liquids overnight and tolerated that well. accuchecks still well controlled, though remains on d10@75cc/hr. low-grade temps persist. serial lipase pending. Objective Vital Signs Date Time Temp Pulse Resp B/P Pulse Ox O2 Delivery O2 Flow Rate FiO2 01/11/17 05:01 114 35 114/80 94 01/11/17 04:02 99.8 01/11/17 04:00 Nasal Cannula 4.00 Intake and Output 01/10/17 01/10/17 01/11/17 08:00 16:00 00:00 Intake Total 2090 ml 1003 ml 1220 ml Output Total 1400 ml 1200 ml 500 ml Balance 690 ml -197 ml 720 ml Result Diagram: 01/11/17 0510 01/10/17 1625 Imaging CXR 01/10: Pulmonary edema Last Impressions Chest X-Ray 01/09/17 0000 Signed Impressions: Service Date/Time: January 07:22 - CONCLUSION: 1. Right internal jugular central in place with the tip at the inferior aspect of the right atrium. 2. Diffuse increased interstitial markings representing underlying diffuse processes such as edema. Christopher Lamb MD Abdomen/Pelvis CT 01/08/17 1027 Signed Impressions: Service Date/Time: Sunday, January 08, 2017 11:20 - CONCLUSION: 1. No definite CT findings to explain patient's abdominal pain 2. Liver is enlarged measuring 20 cm with 2 ill-defined hypodense masses. 2.4 x 2.4 x 2.4 cm mass in segment 4 and 3.2 x 3.3 x 3.2 cm mass in segment 6. Although the findings may reflect focal fat, differential considerations include both benign and malignant etiologies as there are no characteristic findings to support a specific diagnosis. Recommend further characterization with multiphase liver mass protocol MRI or CT exam particularly if patient has a history of EtOH abuse, hepatitis, or malignancy. 3. Normal appendix. 4. Calcified uterine leiomyomas. 5. Subcentimeter cystic lesions in the left kidney are too small to fully characterize. Statistically these reflect cysts. Jw Cornell MD Objective Remarks HEENT/Neuro: No pallor or icterus, tongue moist, GLENN, awake and alert this morning. follows commands. Neck: No JVD Chest/pulmonary: unlabored, equal chest rise. Cardiovascular: tachycardic rate, regular rhythm. sinus by tele. GI/abdomen: Soft, nontender, no guarding. Extremities: Warm bilaterally, no edema Date of Insertion: Jan 09, 2017 Line: Central Venous Catheter Side: Right Location: Jugular A/P Assessment and Plan 46-year-old female with: Diabetic ketoacidosis Hypotension - resolved. dehydration - resolved alcohol abuse liver masses Encephalopathy - resolved. Question of pancreatitis Hypoglycemia Sinus Tachycardia secondary to SIRS response Plan: Neuro: Follow neuro status. Alcohol withdrawal protocol ordered with when necessary Ativan. Thiamine folic acid MVI. Cardiovascular: s/p aggressive fluid resuscitation. Off Indra-Synephrine. Diuresed on 01/10 is chest x-ray shows pulmonary edema. tachycardia likely secondary to stress response from pancreatitis. appears clinically euvolemic. could consider beta blockade later, but for now, will tolerate higher heart rates. Pulmonary: Supplemental O2 as needed. OOB, I.S. GI/liver: advance diet to diabetic diet as tolerated. f/u repeat lipase. GI consult following for further evaluation of liver masses are noted on CT abdomen pelvis. LFTs normal. Follow amylase/lipase which was elevated initially. Concern for pancreatitis. Renal/ : continue dextrose. d/c de. strict i/o's. electrolyte replacement. ID: Leukocytosis noted. Possible aspiration, Possibly stress response secondary to DKA versus pancreatitis. cultures NGTD.Continue empiric antibiotic coverage with IV Levaquin. Endocrine:Coninue Levemir 10 units twice a day and sliding scale insulin. Continue D5 1/2 NS at 75 cc an hour. will work towards transitioning this off as she begins to take PO. Prophylaxis: PPI/SCDs/heparin. Lines: d/c de. d/c cvl. Dispo: will keep in ICU while transitioning to po diet and off d10 drip. then could transition to floor. Kevin Gonzalez MD Jan 11, 2017 06:28
[2017-01-11 06:34] LABS: BICARBONATE 25.9 MEQ/L (21.0-32.0); MAGNESIUM 2.1 MG/DL (1.5-2.5)
--- NOTE | 2017-01-11 06:40 | RADHPO ---
EXAM DATE/TIME: 01/11/2017 06:19 [facility] COMPARISON: CHEST SINGLE AP, January 10, 2017, 6:09. INDICATIONS : Shortness of breath. Followup diffuse pulmonary opacities. MEDICAL HISTORY : Diabetes mellitus type II. Hypertension SURGICAL HISTORY : Amputation left great toe ENCOUNTER: Subsequent ACUITY: 4 - 6 days PAIN SCORE: 3/10 LOCATION: Bilateral chest FINDINGS: A single AP erect portable view of the chest was obtained and demonstrates interval improvement in th e bilateral diffuse opacities. There is milder consolidation at the right medial lung base. The heart size remains within normal limits. There is no visualized effusion. The right internal jugular centr al venous line remains in place. There are multiple overlying electrocardiogram leads. CONCLUSION: Interval improvement in bilateral pulmonary opacities with moderate residual. Ilya Johnson MD on January 11, 2017 at 6:37 Board Certified Radiologist. This report was verified electronically.
[2017-01-11 06:51] LABS: CALCIUM-PROTEIN CORRECTED 7.2 MG/DL (8.5-10.1)
[2017-01-11] MEDS: HEPARIN SODIUM - SQ 10,000 UNITS/ML VIAL SQ SCH (09:00)
[2017-01-11] MEDS: DOCUSATE SODIUM 50 MG/SENNA 8.6 MG TAB PO SCH ×2 (09:00→20:28)
[2017-01-11] MEDS: REMOVE OLD PATCH T-DERMAL SCH (09:00)
[2017-01-11] MEDS: LEVOFLOXACIN 750 MG PREMIX INJ 150 ML IV SCH (09:04)
[2017-01-11] MEDS: PANTOPRAZOLE SODIUM 40 MG VIAL IV PUSH SCH (09:05)
[2017-01-11] MEDS: NICOTINE 14 MG/24 HR PATCH T-DERMAL SCH (09:06)
[2017-01-11] MEDS: MULTIVITAMINS/MINERALS THERAPEUTIC TAB PO SCH (09:09)
[2017-01-11] MEDS: FOLIC ACID 1 MG TAB PO SCH (09:09)
[2017-01-11] MEDS: INSULIN DETEMIR 100 UNITS/ML VIAL SQ SCH ×2 (09:09→20:30)
[2017-01-11] MEDS: SODIUM CHLORIDE 0.9% FLUSH 10 ML FLUSH IV FLUSH SCH ×2 (09:10→20:28)
[2017-01-11] MEDS: DEXTROSE 10%-1/2 NS 1000 ML IV SCH ×4 (09:15→20:29)
[2017-01-11] MEDS: POTASSIUM PHOSPHATE INJ 30 MMOL in SODIUM CHLOR 0.9% 250 ML INJ 250 ML IV PRN (10:00)
[2017-01-11] MEDS: THIAMINE INJ 100 MG in SODIUM CHLORIDE 0.9% INJ 100 ML IV SCH (11:24)
[2017-01-11] MEDS ORDERED: ACETAMINOPHEN 325 MG TAB PO PRN (17:00)
[2017-01-11 21:03] LABS: POTASSIUM 3.7 MEQ/L (3.5-5.1)
[2017-01-12] VITALS (21 sets, daily range): BP systolic 95–128; BP diastolic 61–86; PULSE 84–100; RESP 19–35; TEMP 97.9–98.9; O2SAT 92–99
[2017-01-12] MEDS: POTASSIUM PHOSPHATE INJ 30 MMOL in SODIUM CHLOR 0.9% 250 ML INJ 250 ML IV PRN (00:03)
[2017-01-12] MEDS: INSULIN ASPART SUPPLEMENTAL SCALE SQ SCH ×7 (04:00→23:53)
[2017-01-12] MEDS: CHLORHEXIDINE GLUCONATE 2 % 1 PACK (2 CLOTHS)(taper/protocol) TOPICAL SCH (04:00)
--- NOTE | 2017-01-12 06:16 | HHI.CCPN ---
Subjective Remarks/Hospital Course 46-year-old female with a medical history significant for type 1 diabetes, hypertension, hyperlipidemia, alcohol abuse who was admitted on 01/08 by hospitalist service after presenting with nausea vomiting abdominal pain following intake of 5 alcoholic beverages including vodka water and Crystal light powder at home. She also noted her blood glucose to be in the 600 range at home gave herself 15 units of NovoLog insulin prior to coming to the hospital. She was evaluated in the ER and was noted to have an anion gap metabolic acidosis with positive ketones. She was accepted for admission by hospitalist service and was admitted to the floor. A metabolic acidosis continued to worsen on the floor. She developed worsening mental status as well and was rushed to the ICU around 5:30 AM on 01/09 with florid diabetic ketoacidosis. She was initiated on DKA protocol and critical care consult was requested by hospitalist service. She was hypotensive on arrival to the ICU and was given 2 L normal saline bolus by operation shift supervisor intensivists covering from the main hospital. She continued to drop her blood pressure hence was started on Levophed for pressor support while bolusing fluids and a right IJ central line was placed for central vascular access for administration of pressors and multiple fluid boluses following my arrival. At the time of my evaluation patient was stuporous though arousable with repeated stimulation though was not following commands and was nonverbal. She was on 2 L nasal cannula at the time and had been started on Levophed around 6 mics per minute at the time of my evaluation while receiving her second liter of normal saline bolus. She had a Angel catheter placed and was making urine. She had been started on an insulin drip around 6 units an hour and I ordered additional 10 units regular insulin IV push. Patient had received 3 amps of bicarbonate for severe metabolic acidosis with a bicarbonate of around 4. A CAT scan of her abdomen done on 01/08 in the ER revealed possible liver masses versus hypodense lesions. Reportedly due to insurance reasons she had to change from Lantus insulin to NPH temporarily until her insurance was able to cover the Lantus. She indicates her primary medical doctor knew about this and has been adjusting her medications. 01/10: Require Lasix last night as chest x-ray showed evidence of fluid overload and she was having respiratory distress. Off pressors since yesterday. Was on Precedex transiently last night however that made her hypotensive so it has been held currently. Received 1 dose of Ativan around 10 PM last night. This morning she is drowsy though arousable. Disoriented at the time of my evaluation. Per RN and her sister who was at the bedside she does wake up and occasionally responds. 01/11: off vasopressors. off precedex. slightly tachycardic today, but appears clinically euvolemic. much more awake, and complains she is hungry. started on clear liquids overnight and tolerated that well. accuchecks still well controlled, though remains on d10@75cc/hr. low-grade temps persist. serial lipase pending. 01/12: reduced Levemir yesterday to 5 units BID. glycemic control better. D10NS weaned to 50 cc/hr overnight. tolerating diet. abdominal pain improved. Lipase downtrending. Objective Vital Signs Date Time Temp Pulse Resp B/P Pulse Ox O2 Delivery O2 Flow Rate FiO2 01/12/17 05:00 94 27 97/69 96 01/12/17 04:00 98.5 01/12/17 04:00 Nasal Cannula 3.00 Intake and Output 01/11/17 01/11/17 01/12/17 08:00 16:00 00:00 Intake Total 850 ml 1126 ml 506 ml Output Total 550 ml 650 ml 875 ml Balance 300 ml 476 ml -369 ml Result Diagram: 01/11/17 0510 01/11/17 2045 Other Results Microbiology Date/Time Procedure Status Source Growth 01/09/17 10:50 Urine Culture - Final Complete Urine Catheterized Urine NO GROWTH IN 48 HOURS. Imaging CXR 01/10: Pulmonary edema Last Impressions Chest X-Ray 01/09/17 0000 Signed Impressions: Service Date/Time: January 07:22 - CONCLUSION: 1. Right internal jugular central in place with the tip at the inferior aspect of the right atrium. 2. Diffuse increased interstitial markings representing underlying diffuse processes such as edema. Christopher Lamb MD Abdomen/Pelvis CT 01/08/17 1027 Signed Impressions: Service Date/Time: Sunday, January 08, 2017 11:20 - CONCLUSION: 1. No definite CT findings to explain patient's abdominal pain 2. Liver is enlarged measuring 20 cm with 2 ill-defined hypodense masses. 2.4 x 2.4 x 2.4 cm mass in segment 4 and 3.2 x 3.3 x 3.2 cm mass in segment 6. Although the findings may reflect focal fat, differential considerations include both benign and malignant etiologies as there are no characteristic findings to support a specific diagnosis. Recommend further characterization with multiphase liver mass protocol MRI or CT exam particularly if patient has a history of EtOH abuse, hepatitis, or malignancy. 3. Normal appendix. 4. Calcified uterine leiomyomas. 5. Subcentimeter cystic lesions in the left kidney are too small to fully characterize. Statistically these reflect cysts. Jw Cornell MD Objective Remarks HEENT/Neuro: No pallor or icterus, tongue moist, GLENN, awake and alert. follows commands. Neck: No JVD Chest/pulmonary: unlabored, equal chest rise. Cardiovascular: normal rate, regular rhythm. sinus by tele. GI/abdomen: Soft, nontender, no guarding. Extremities: Warm bilaterally, no edema A/P Assessment and Plan 46-year-old female with: Diabetic ketoacidosis- resolved. Hypotension - resolved. dehydration - resolved alcohol abuse liver masses Encephalopathy - resolved. Question of pancreatitis Hypoglycemia- resolving. Sinus Tachycardia secondary to SIRS response- resolving. Plan: Neuro: Follow neuro status. Alcohol withdrawal protocol ordered with when necessary Ativan. Thiamine folic acid MVI. Cardiovascular: s/p aggressive fluid resuscitation. Off Indra-Synephrine. Diuresed on 01/10 is chest x-ray shows pulmonary edema. tachycardia likely secondary to stress response from pancreatitis. appears clinically euvolemic. could consider beta blockade later, but for now, will tolerate higher heart rates. Pulmonary: Supplemental O2 as needed. OOB, I.S. GI/liver: diabetic diet as tolerated. GI consult following for further evaluation of liver masses are noted on CT abdomen pelvis. LFTs normal. Follow amylase/lipase which was elevated initially. Concern for pancreatitis. Renal/ : d/c dextrose. strict i/o's. electrolyte replacement. ID: Leukocytosis noted. Possible aspiration, Possibly stress response secondary to DKA versus pancreatitis. cultures NGTD.Continue empiric antibiotic coverage with IV Levaquin. Endocrine:Coninue Levemir 5 units twice a day and sliding scale insulin. stop dextrose infusion. continue to watch sugars. Prophylaxis: PPI/SCDs/heparin. Lines: piv's Dispo: If she remains stable off dextrose, will transition to floor with hospitalist services. Kevin Gonzalez MD Jan 12, 2017 06:16
[2017-01-12 07:56] LABS: BICARBONATE 24.1 MEQ/L (21.0-32.0)
[2017-01-12] MEDS: INSULIN DETEMIR 100 UNITS/ML VIAL SQ SCH ×2 (08:21→19:51)
[2017-01-12] MEDS: FOLIC ACID 1 MG TAB PO SCH (08:30)
[2017-01-12] MEDS: MULTIVITAMINS/MINERALS THERAPEUTIC TAB PO SCH (08:30)
[2017-01-12] MEDS: DOCUSATE SODIUM 50 MG/SENNA 8.6 MG TAB PO SCH ×2 (08:30→19:51)
[2017-01-12] MEDS: PANTOPRAZOLE SODIUM 40 MG VIAL IV PUSH SCH (08:30)
[2017-01-12] MEDS: SODIUM CHLORIDE 0.9% FLUSH 10 ML FLUSH IV FLUSH SCH ×2 (08:31→19:51)
[2017-01-12] MEDS: LEVOFLOXACIN 750 MG PREMIX INJ 150 ML IV SCH (08:31)
[2017-01-12 08:32] LABS: CALCIUM-PROTEIN CORRECTED 7.6 MG/DL (8.5-10.1)
[2017-01-12] MEDS: REMOVE OLD PATCH T-DERMAL SCH (08:32)
[2017-01-12] MEDS: NICOTINE 14 MG/24 HR PATCH T-DERMAL SCH (08:32)
[2017-01-12] MEDS: THIAMINE INJ 100 MG in SODIUM CHLORIDE 0.9% INJ 100 ML IV SCH (08:34)
--- NOTE | 2017-01-12 14:48 | HHI.GIFU ---
Subjective Remarks feels better, no abdominal pain, tolerating diet, no nausea or vomiting Objective Vitals I&O Vital Signs Date Time Temp Pulse Resp B/P Pulse Ox O2 Delivery O2 Flow Rate FiO2 01/12/17 14:00 86 01/12/17 12:00 97.9 84 21 105/75 92 01/12/17 12:00 Room Air 01/12/17 12:00 88 01/12/17 10:00 94 01/12/17 08:00 Room Air 01/12/17 08:00 96 01/12/17 08:00 96 27 100/65 97 01/12/17 07:55 96 Nasal Cannula 3.00 01/12/17 07:00 98.3 92 34 102/63 97 01/12/17 06:01 96 28 108/71 95 01/12/17 06:00 96 01/12/17 05:00 94 27 97/69 96 01/12/17 04:00 100 01/12/17 04:00 98.5 100 32 114/78 94 01/12/17 04:00 Nasal Cannula 3.00 01/12/17 03:00 96 25 95/61 96 01/12/17 02:00 98 01/12/17 02:00 98 26 95/66 96 01/12/17 01:00 98 28 98/63 96 01/12/17 00:00 98.9 100 35 102/70 98 01/12/17 00:00 100 01/12/17 00:00 Nasal Cannula 3.00 01/11/17 23:00 102 32 103/64 01/11/17 22:00 102 29 104/66 95 01/11/17 22:00 102 01/11/17 21:13 99/70 01/11/17 20:15 97 Nasal Cannula 3.00 01/11/17 20:00 104 01/11/17 20:00 Nasal Cannula 3.00 01/11/17 20:00 101.8 104 40 112/72 95 01/11/17 19:00 108 9 109/73 97 01/11/17 17:00 108 37 95/63 95 01/11/17 16:00 93 Nasal Cannula 3.00 01/11/17 16:00 100.2 114 41 111/70 93 01/11/17 16:00 114 01/11/17 15:00 112 32 110/71 94 I/O 01/11/17 01/11/17 01/11/17 01/12/17 01/12/17 01/12/17 07:00 15:00 23:00 07:00 15:00 23:00 Intake Total 850 ml 1126 ml 506 ml 604 ml 1111 ml Output Total 550 ml 650 ml 875 ml 1200 ml 1550 ml Balance 300 ml 476 ml -369 ml -596 ml -439 ml Intake Oral 200 ml 240 ml 720 ml IV Total 650 ml 886 ml 506 ml 604 ml 391 ml Output Urine Total 550 ml 650 ml 875 ml 1200 ml 1550 ml # Bowel Movements 0 0 1 Laboratory Laboratory Tests Test 01/11/17 01/12/17 20:45 07:00 Potassium Level 3.7 4.0 Phosphorus Level 1.9 2.5 Sodium Level 141 Chloride Level 108 Carbon Dioxide Level 24.1 Anion Gap 9 Blood Urea Nitrogen 3 Creatinine 0.43 Estimat Glomerular Filtration 157 Rate Random Glucose 218 Calcium Level 6.9 Protein Corrected Calcium 7.6 Total Protein 5.7 Date/Time Procedure Status Source Growth 01/09/17 10:50 Urine Culture - Final Complete Urine Catheterized Urine NO GROWTH IN 48 HOURS. 01/09/17 10:50 Aerobic Blood Culture - Preliminary Resulted Blood Peripheral NO GROWTH IN 3 DAYS 01/09/17 10:50 Anaerobic Blood Culture - Preliminary Resulted Blood Peripheral NO GROWTH IN 3 DAYS Physical Exam HEENT: Pupils round and reactive to light; normocephalic; atraumatic; no jaundice. Throat is clear. NECK: Neck is supple, no JVD, no lymphadenopathy. CHEST: Chest is clear to auscultation and percussion. CARDIAC: Regular rate and rhythm with no murmur gallop or rubs. ABDOMEN: Soft, nondistended, nontender; no hepatosplenomegaly; bowel sounds are present in all four quadrants. EXTREMITIES: No clubbing, cyanosis, or edema. SKIN: Normal; no rash; no jaundice. ENTRY LEVEL ACCOUNT REPRESENTATIVE: No focal deficits; alert and oriented times three. Assessment and Plan Plan pancreatitis, second episode, most likely because of ETOH, patient aware of that , she is doing better and improving recommendation 1- Ok to transfer to floor 2- home soon 3- diet as tolerated 4- no ETOH 5- FU as outpatient in 1-2 wks Hugo Franks MD Jan 12, 2017 14:48
[2017-01-13] VITALS (10 sets, daily range): BP systolic 118–124; BP diastolic 78–81; PULSE 78–98; RESP 20–30; TEMP 98.3–98.6; O2SAT 98–99
[2017-01-13] MEDS: INSULIN ASPART SUPPLEMENTAL SCALE SQ SCH ×3 (04:00→12:06)
[2017-01-13] MEDS: CHLORHEXIDINE GLUCONATE 2 % 1 PACK (2 CLOTHS)(taper/protocol) TOPICAL SCH (04:00)
[2017-01-13 05:15] LABS: HEMATOCRIT 32.2 % (35.0-46.0); MEAN CELL VOLUME 100.7 FL (80.0-100.0); MEAN CORPUSCULAR HEMOGLOBIN 33.2 PG (27.0-34.0); PLATELET COUNT 152 TH/MM3 (150-450); RED CELL DISTRIBUTION WIDTH 12.8 % (11.6-17.2); REVIEW FLAG FINAL; WHITE BLOOD COUNT 6.8 TH/MM3 (4.0-11.0)
[2017-01-13 05:24] LABS: POTASSIUM 3.8 MEQ/L (3.5-5.1)
[2017-01-13 06:24] LABS: BICARBONATE 25.8 MEQ/L (21.0-32.0)
[2017-01-13] MEDS: PANTOPRAZOLE SODIUM 40 MG VIAL IV PUSH SCH (08:58)
[2017-01-13] MEDS: DOCUSATE SODIUM 50 MG/SENNA 8.6 MG TAB PO SCH (08:58)
[2017-01-13] MEDS: MULTIVITAMINS/MINERALS THERAPEUTIC TAB PO SCH (08:58)
[2017-01-13] MEDS: LEVOFLOXACIN 750 MG PREMIX INJ 150 ML IV SCH (08:58)
[2017-01-13] MEDS: NICOTINE 14 MG/24 HR PATCH T-DERMAL SCH (08:59)
[2017-01-13] MEDS: FOLIC ACID 1 MG TAB PO SCH (08:59)
[2017-01-13] MEDS: SODIUM CHLORIDE 0.9% FLUSH 10 ML FLUSH IV FLUSH SCH (08:59)
[2017-01-13] MEDS: INSULIN DETEMIR 100 UNITS/ML VIAL SQ SCH (09:00)
[2017-01-13] MEDS: REMOVE OLD PATCH T-DERMAL SCH (09:00)
[2017-01-13] MEDS ORDERED: THIAMINE HCL 100 MG TAB PO SCH (09:00)
--- NOTE | 2017-01-13 09:50 | HHI.PR ---
Subjective Remarks Follow up pancreatitis, DKA, diabetes. The patient has no complaints at this time. She wants to go home. Denies abdominal pain, dyspnea, chest pain. Wants to go home. Objective Vitals Vital Signs Date Time Temp Pulse Resp B/P Pulse Ox O2 Delivery O2 Flow Rate FiO2 01/13/17 06:00 86 01/13/17 04:00 Room Air 01/13/17 04:00 88 01/13/17 03:00 98.3 92 30 01/13/17 02:00 88 01/13/17 00:00 Room Air 01/13/17 00:00 96 01/12/17 23:00 98.5 98 23 118/81 96 01/12/17 22:00 90 01/12/17 20:00 94 01/12/17 20:00 Room Air 01/12/17 19:30 98 21 01/12/17 19:00 98.4 88 29 128/86 97 01/12/17 18:00 88 01/12/17 16:00 98.0 87 19 107/68 99 01/12/17 16:00 86 01/12/17 16:00 Room Air 01/12/17 14:00 86 01/12/17 12:00 97.9 84 21 105/75 92 01/12/17 12:00 Room Air 01/12/17 12:00 88 01/12/17 10:00 94 I/O 01/12/17 01/12/17 01/12/17 01/13/17 01/13/17 01/13/17 07:00 15:00 23:00 07:00 15:00 23:00 Intake Total 604 ml 1111 ml 360 ml Output Total 1200 ml 350 ml 1600 ml 1000 ml Balance -596 ml 761 ml -1240 ml -1000 ml Intake Oral 720 ml 360 ml IV Total 604 ml 391 ml Output Urine Total 1200 ml 350 ml 1600 ml 1000 ml # Bowel Movements 1 Result Diagram: 01/13/175 01/13/17 043 Imaging Last Impressions Chest X-Ray 01/11/17 0600 Signed Impressions: Service Date/Time: Wednesday, January 11, 2017 06:19 - CONCLUSION: Interval improvement in bilateral pulmonary opacities with moderate residual. Ilya Johnson MD Abdomen MRI 01/10/17 0000 Signed Impressions: Service Date/Time: Tuesday, January 10, 2017 12:47 - CONCLUSION: 1. Essentially nondiagnostic examination due to patient's inability to cooperate with the exam and significant respiratory motion artifact. 2. MRI exam confirms the findings on CT with 2 distinct masses in the liver, in segments 6 and 4. Signal characteristics are grossly indeterminant and differential considerations continue to include benign and malignant etiologies. Further imaging may be performed with Eovist MRI examination once patient is able to cooperate with exam. Ultimately, patient may require biopsy for definitive diagnosis. Jw Cornell MD Abdomen/Pelvis CT 01/08/17 1027 Signed Impressions: Service Date/Time: Sunday, January 08, 2017 11:20 - CONCLUSION: 1. No definite CT findings to explain patient's abdominal pain 2. Liver is enlarged measuring 20 cm with 2 ill-defined hypodense masses. 2.4 x 2.4 x 2.4 cm mass in segment 4 and 3.2 x 3.3 x 3.2 cm mass in segment 6. Although the findings may reflect focal fat, differential considerations include both benign and malignant etiologies as there are no characteristic findings to support a specific diagnosis. Recommend further characterization with multiphase liver mass protocol MRI or CT exam particularly if patient has a history of EtOH abuse, hepatitis, or malignancy. 3. Normal appendix. 4. Calcified uterine leiomyomas. 5. Subcentimeter cystic lesions in the left kidney are too small to fully characterize. Statistically these reflect cysts. Jw Cornell MD Objective Remarks General: No acute distress. Heart: Regular rate and rhythm. No murmur. Lungs: Clear to auscultation bilaterally. No wheezes, rales, or rhonchi. Breathing is nonlabored. Abdomen: Soft, nontender, nondistended. Extremities: No lower extremity edema. Psych: Alert and oriented. Procedures 01/09/17 Central line placement Urinary Catheter: No Vascular Central Line Catheter: No A/P Problem List: (1) Metabolic acidosis, increased anion gap ICD Code: E87.2 Status: Resolved (2) Diabetic ketoacidosis ICD Code: E13.10 Status: Resolved (3) Alcoholic ketoacidosis ICD Code: E87.2 Status: Resolved (4) Pancreatitis ICD Code: K85.90 Status: Resolved (5) Liver masses ICD Code: R16.0 Status: Chronic (6) Hypertension ICD Code: I10 Status: Chronic (7) Hyperlipidemia ICD Code: E78.5 Status: Chronic Assessment and Plan 1. DKA, type 1 diabetes mellitus: DKA has resolved. Continue insulin, monitor Accu-Cheks. 2. Pancreatitis: Resolved. Likely secondary to alcohol abuse. Patient has been counseled to avoid alcohol. Appreciate GI recommendations. 3. Dehydration: Resolved. 4. Encephalopathy: Resolved. 5. DVT prophylaxis: SCDs, heparin. 6. GI prophylaxis: PPI. Discharge Planning Discharge home in stable condition. Patient has follow-up appointment with PCP tomorrow. She states that she has enough insulin at home. Problem Qualifiers (1) Diabetic ketoacidosis: Qualified Code: E10.10 - Diabetic ketoacidosis without coma associated with type 1 diabetes mellitus (2) Pancreatitis: Qualified Code: K85.90 - Acute pancreatitis, unspecified complication status, unspecified pancreatitis type (3) Hypertension: Qualified Code: I15.9 - Secondary hypertension (4) Hyperlipidemia: Qualified Code: E78.5 - Hyperlipidemia, unspecified hyperlipidemia type Ammon Gama MD Jan 13, 2017 09:50
[2017-01-13] MEDS ORDERED: LEVO750T3 PO (09:54)
[2017-01-13] MEDS ORDERED: LEVEMIR SQ (09:54)
[2017-01-13] MEDS ORDERED: GNP100TA3 PO (09:54)
--- NOTE | 2017-01-13 09:54 | HHI.DCPOC ---
Discharge Care Plan Diagnosis: (1) Hyperglycemia due to type 1 diabetes mellitus (2) Alcoholic ketoacidosis (3) Diabetic ketoacidosis (4) Hyperlipidemia (5) Pancreatitis (6) Hypertension (7) Liver masses (8) Metabolic acidosis, increased anion gap Goals to Promote Your Health * To prevent worsening of your condition and complications * To maintain your health at the optimal level Directions to Meet Your Goals Take your medications as prescribed Follow your dietary instruction Follow activity as directed Keep your appointments as scheduled Take your immunizations and boosters as scheduled If your symptoms worsen call your PCP, if no PCP go to Urgent Care Center or Emergency Room Smoking is Dangerous to Your Health. Avoid second hand smoke Call the 24-hour hour crisis hotline for domestic abuse at Ammon Gama MD Jan 13, 2017 09:54
[2017-01-13] MEDS ORDERED: NOVO7030P2 SQ (12:22)
[2017-01-13 13:26] LABS: HEPARIN AB OD 0.158 O.D. (0.000-0.300); HEPARIN INDUCED PLATELET AB NEGATIVE (NEGATIVE)
--- NOTE | 2017-01-13 18:41 | HHI.GIFU ---
Subjective Remarks feeling well, no abdominal pain Objective Vitals I&O Vital Signs Date Time Temp Pulse Resp B/P Pulse Ox O2 Delivery O2 Flow Rate FiO2 01/13/17 12:00 98.4 78 20 124/78 01/13/17 12:00 78 01/13/17 12:00 Room Air 01/13/17 10:00 86 28 01/13/17 10:00 86 01/13/17 10:00 86 01/13/17 08:06 84 20 119/80 01/13/17 08:06 84 01/13/17 08:00 92 01/13/17 08:00 Room Air 01/13/17 08:00 98.6 92 30 01/13/17 07:50 98 21 01/13/17 06:00 86 01/13/17 04:00 Room Air 01/13/17 04:00 88 01/13/17 03:00 98.3 92 30 01/13/17 02:00 88 01/13/17 00:00 Room Air 01/13/17 00:00 96 01/12/17 23:00 98.5 98 23 118/81 96 01/12/17 22:00 90 01/12/17 20:00 94 01/12/17 20:00 Room Air 01/12/17 19:30 98 21 01/12/17 19:00 98.4 88 29 128/86 97 I/O 01/12/17 01/12/17 01/12/17 01/13/17 01/13/17 01/13/17 07:00 15:00 23:00 07:00 15:00 23:00 Intake Total 604 ml 1111 ml 360 ml Output Total 1200 ml 350 ml 1600 ml 1000 ml Balance -596 ml 761 ml -1240 ml -1000 ml Intake Oral 720 ml 360 ml IV Total 604 ml 391 ml Output Urine Total 1200 ml 350 ml 1600 ml 1000 ml # Bowel Movements 1 Laboratory Laboratory Tests Test 01/13/17 04:35 White Blood Count 6.8 Red Blood Count 3.20 Hemoglobin 10.6 Hematocrit 32.2 Mean Corpuscular Volume 100.7 Mean Corpuscular Hemoglobin 33.2 Mean Corpuscular Hemoglobin 33.0 Concent Red Cell Distribution Width 12.8 Platelet Count 152 Mean Platelet Volume 7.9 Sodium Level 141 Potassium Level 3.8 Chloride Level 107 Carbon Dioxide Level 25.8 Anion Gap 8 Blood Urea Nitrogen 6 Creatinine 0.34 Estimat Glomerular Filtration 206 Rate Random Glucose 153 Calcium Level 8.1 Date/Time Procedure Status Source Growth 01/09/17 10:50 Urine Culture - Final Complete Urine Catheterized Urine NO GROWTH IN 48 HOURS. 01/09/17 10:50 Aerobic Blood Culture - Preliminary Resulted Blood Peripheral NO GROWTH IN 4 DAYS 01/09/17 10:50 Anaerobic Blood Culture - Preliminary Resulted Blood Peripheral NO GROWTH IN 4 DAYS Physical Exam HEENT: Pupils round and reactive to light; normocephalic; atraumatic; no jaundice. Throat is clear. NECK: Neck is supple, no JVD, no lymphadenopathy. CHEST: Chest is clear to auscultation and percussion. CARDIAC: Regular rate and rhythm with no murmur gallop or rubs. ABDOMEN: Soft, nondistended, nontender; no hepatosplenomegaly; bowel sounds are present in all four quadrants. EXTREMITIES: No clubbing, cyanosis, or edema. SKIN: Normal; no rash; no jaundice. 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 Assessment and Plan Plan pancreatitis, second episode, most likely because of ETOH, patient aware of that , back to normal, wants to go home recommendation 1- Ok to tDC home 2-FU in 2 wks 3- diet as tolerated 4- no ETOH Hugo Franks MD Jan 13, 2017 18:41
--- NOTE | 2017-01-29 16:41 | HHI.DS ---
Discharge Summary Admission Date Jan 08, 2017 at 13:13 Discharge Date: Jan 13, 2017 Admitting Diagnosis HHNK, Pancreatitis (1) Metabolic acidosis, increased anion gap ICD Code: E87.2 Diagnosis: Principal (2) Diabetic ketoacidosis ICD Code: E13.10 Diagnosis: Principal (3) Alcoholic ketoacidosis ICD Code: E87.2 Diagnosis: Principal (4) Pancreatitis ICD Code: K85.90 Diagnosis: Principal (5) Liver masses ICD Code: R16.0 Diagnosis: Principal (6) Hypertension ICD Code: I10 Diagnosis: Secondary (7) Hyperlipidemia ICD Code: E78.5 Diagnosis: Secondary Procedures 01/09/17 Central line placement Brief History - From Admission 46-year-old female with known history of diabetes, hypertension, hyperlipidemia, alcohol use who presented to the hospital because of abdominal pain, nausea and vomiting. Patient states that she was in normal state of health until early this morning. She indicates that she had a promotion at work and was celebrating at home with alcohol use. She states that she had approximately 5 alcoholic beverages that consisted of vodka, water and Crystal light powder. Patient states that she woke up approximately 2 AM, not feeling well with lightheadedness and dizziness. Patient checked her blood sugar and noticed that it was 600. She states that she gave herself 15 units of NovoLog insulin and continued recheck her blood sugar every hour in which she states it came down to 360 prior to coming to the hospital. However during this time of monitoring her sugar she developed epigastric abdominal pain radiating into her back with associated nausea, vomiting, diarrhea. Because she could not stop having nausea, vomiting, diarrhea she came to the hospital for evaluation. Patient was evaluated in emergency department and found to have significant metabolic acidosis with anion gap. CT scan did show abnormal findings of the liver with possible masses. It was recommended by the ER physician that the patient be admitted for further evaluation and management. Patient indicates that she has not been managing her diabetes as she used to. She states that due to insurance reasons she had to change from Lantus insulin to NPH temporarily until her insurance was able to cover the Lantus. She indicates her primary medical doctor knew about this and has been adjusting her medications. Imaging Last Impressions Chest X-Ray 01/11/17 0600 Signed Impressions: Service Date/Time: Wednesday, January 11, 2017 06:19 - CONCLUSION: Interval improvement in bilateral pulmonary opacities with moderate residual. Ilya Johnson MD Abdomen MRI 01/10/17 0000 Signed Impressions: Service Date/Time: Tuesday, January 10, 2017 12:47 - CONCLUSION: 1. Essentially nondiagnostic examination due to patient's inability to cooperate with the exam and significant respiratory motion artifact. 2. MRI exam confirms the findings on CT with 2 distinct masses in the liver, in segments 6 and 4. Signal characteristics are grossly indeterminant and differential considerations continue to include benign and malignant etiologies. Further imaging may be performed with Eovist MRI examination once patient is able to cooperate with exam. Ultimately, patient may require biopsy for definitive diagnosis. Jw Cornell MD Abdomen/Pelvis CT 01/08/17 1027 Signed Impressions: Service Date/Time: Sunday, January 08, 2017 11:20 - CONCLUSION: 1. No definite CT findings to explain patient's abdominal pain 2. Liver is enlarged measuring 20 cm with 2 ill-defined hypodense masses. 2.4 x 2.4 x 2.4 cm mass in segment 4 and 3.2 x 3.3 x 3.2 cm mass in segment 6. Although the findings may reflect focal fat, differential considerations include both benign and malignant etiologies as there are no characteristic findings to support a specific diagnosis. Recommend further characterization with multiphase liver mass protocol MRI or CT exam particularly if patient has a history of EtOH abuse, hepatitis, or malignancy. 3. Normal appendix. 4. Calcified uterine leiomyomas. 5. Subcentimeter cystic lesions in the left kidney are too small to fully characterize. Statistically these reflect cysts. Jw Cornell MD PE at Discharge General: No acute distress. Heart: Regular rate and rhythm. No murmur. Lungs: Clear to auscultation bilaterally. No wheezes, rales, or rhonchi. Breathing is nonlabored. Abdomen: Soft, nontender, nondistended. Extremities: No lower extremity edema. Psych: Alert and oriented. Hospital Course The patient was admitted to the intensive care unit for management of anion gap metabolic acidosis and acute pancreatitis. She was continued on IV fluids and pain control. Her glucose was initially managed with subcutaneous insulin. She developed worsening mental status and was transferred to the critical care service. She was started on DKA protocol. She developed fluid overload and was given diuretics. She was transiently placed on Precedex drip, but that was discontinued secondary to hypotension. She did require prior vasopressors area she was weaned off of these medications. Glucose control improved. Mental status improved. Gastroenterology was consulted for evaluation of pancreatitis. This was felt to be most likely secondary to alcohol abuse. She was cleared for discharge home by GI. Pt Condition on Discharge: Stable Discharge Disposition: Discharge Home Discharge Time: > 30 minutes Discharge Instructions DIET: Follow Instructions for: Diabetic Diet Speech Therapy-Diet Recommends: Regular Activities you can perform: Regular-No Restrictions Follow up Referrals: PCP Follow-up - Next Day New Medications: Insulin Human Isophane-Regular 70-30 Inj (Novolin 70-30 Inj) 1,000 Unit/10 Ml Vial 20 UNITS SQ BID Blood Sugar Management Days 30 Ref 0 ML Levofloxacin (Levofloxacin) 750 Mg Tablet 750 MG PO DAILY Infection #2 Ref 0 TAB Insulin Detemir Inj (Levemir Inj) 1,000 unit/ 10 ML Vial 5 UNITS SQ BID Blood Sugar Management #100 Ref 0 INJECTION Thiamine HCl (Gnp Vitamin B-1) 100 Mg Tab 100 MG PO DAILY Nutritional Supplement #30 Ref 0 TAB Discontinued Medications: Insulin Aspart Inj (Novolog Inj) 100 Unit/Ml Inj Ammon Gama MD Jan 29, 2017 16:40
== END 2017-01-13 13:00 | disposition home or self-care (01) | DRG 438 ==
LOC: PHED 09:26 → PHEDA 13:13 → PH3B 15:40 → PHICU 01-09 05:28
PROVIDERS: ADMIT Family Medicine; ATTEND Family Medicine
PROC: 02H633Z Insertion of Infusion Device into Right Atrium, Percutaneous Approach (ICD-10-PCS; principal; 2017-01-09)
DX: K85.20 Alcohol induced acute pancreatitis without necrosis or infection (principal); E10.10 Type 1 diabetes mellitus with ketoacidosis without coma; R16.0 Hepatomegaly, not elsewhere classified; I10 Essential (primary) hypertension; E78.5 Hyperlipidemia, unspecified; F17.210 Nicotine dependence, cigarettes, uncomplicated; F12.90 Cannabis use, unspecified, uncomplicated; F10.10 Alcohol abuse, uncomplicated; Z79.4 Long term (current) use of insulin
CPT/HCPCS: 36556; 36600; 71010; 74177; 74183; 76937; 80048; 80053; 80076; 81001; 82010; 82105; 82150; 82805; 82948; 83605; 83690; 83735; 83880; 83930; 84100; 84132; 84155; 84703; 85025; 85027; 86022; 87040; 87086; 87641; 93005; 94150; 94640; 94667; 94668; 96361; 96374; 96375; A9579; C9113; J0610; J1644; J1815; J1817; J1940; J1956; J2060; J2270; J2370; J2405; J3411; J3475; J3480; J7030; J7050; J7060; Q9967

== ENCOUNTER 2018-03-18 10:45 | Inpatient (IN) ==
--- NOTE | 2018-03-18 11:13 | ED ---
HPI General Chief Complaint: Chest Pain Stated Complaint: Sent By Primary, Abdnormal EKG Time Seen by Provider: 03/18/18 11:08 Source: patient Mode of arrival: ambulatory Limitations: no limitations History of Present Illness HPI narrative: Patient states that her primary care is Dr. vickey cooper, she does not have a underliner. States that she has a past medical history significant for diabetes, pancreatitis, high cholesterol, smokes about a 1 pack a day. Has had epigastric chest pressure sometimes radiating towards her back since intermittently occurring, apparently around Friday and Friday she was symptom-free and she started to have the symptoms again on Friday and Friday which led her to call off work and go to see her primary care. Currently she rates it as a 2 out of 10, also stated that along with the worse pain which seems to happen more 1 or 2 in the morning, associated with diaphoresis and nausea MD complaint: chest pain Complete Quality Measures for STEMI Alert Patients STEMI Alert: No Duration: intermittent Onset: during rest Pain location: substernal and epigastric Severity: moderate Severity scale (1-10): 2 Quality: heaviness Pain radiation: none Relieving factors: nothing Exacerbating factors: nothing Context: recent illness Associated symptoms: nausea and diaphoresis Related Data Home Medications Medication Instructions Recorded Confirmed atorvastatin [Lipitor] 20 mg PO DAILY 03/18/18 03/18/18 insulin NPH and regular human 25 unit SUB-Q DAILY 03/18/18 03/18/18 [Novolin 70/30 U-100 Insulin] insulin regular human [Novolin R 1 sliding scale dose SUB-Q UD 03/18/18 03/18/18 Regular U-100 Insuln] Allergies Allergy/AdvReac Type Severity Reaction Status Date / Time penicillin G Allergy Severe SWELLING Verified 03/18/18 11:04 Review of Systems ROS: all other systems reviewed are negative PMFSH History History Provided By: Patient Social History Social History Substance History: No History of Abuse Second Hand Smoke Exposure: Yes Smoking Status: Current every day smoker Tobacco Type: Cigarettes How Often Do You Have a Drink Containing Alcohol: 2 to 4 times a month Recent Travel in [facility] within the Last 8 Weeks: No Recent Out of Country Travel within the Last 8 Weeks: No Exam Narrative Exam Narrative: GENERAL: Well-nourished, well-developed patient in no apparent distress. SKIN: Warm and dry. HEAD: Atraumatic. Normocephalic. EYES: Pupils equal and round. No scleral icterus. No injection or drainage. ENT: No nasal bleeding or discharge. Mucous membranes pink and moist. NECK: Trachea midline. No JVD. CARDIOVASCULAR: Regular rate and rhythm. no rubs or gallops RESPIRATORY: No accessory muscle use. Clear to auscultation. Breath sounds equal bilaterally. GASTROINTESTINAL: Abdomen soft, non-tender, nondistended. No rebound or guarding MUSCULOSKELETAL: Extremities without clubbing, cyanosis, or edema. No obvious deformities. NEUROLOGICAL: Awake and alert. No obvious cranial nerve deficits. Motor grossly within normal limits. Five out of 5 muscle strength in the arms and legs. Normal speech. PSYCHIATRIC: Appropriate mood and affect; insight and judgment normal. Course Initial Documented Vital Signs Temperature 99.6 F 03/18/18 11:04 Pulse Rate 94 H 03/18/18 11:04 Respiratory Rate 18 03/18/18 11:04 Blood Pressure 128/77 03/18/18 11:04 Pulse Oximetry 99 03/18/18 11:04 Last Documented Vital Signs Temperature 99.6 F 03/18/18 11:04 Pulse Rate 97 H 03/18/18 11:30 Respiratory Rate 18 03/18/18 11:30 Blood Pressure 141/86 H 03/18/18 11:30 Pulse Oximetry 99 03/18/18 11:30 Critical Care Time Critical Care Time: Yes Total Critical Care Time: 30 Attestation: Aggregate critical care time was [30] minutes. Time to perform other separately billable procedures was not included in the critical care time. My time did not include minutes spent treating any other patients simultaneously or on activities that did not directly contribute to the patient's treatment. The services I provided to this patient were to treat and/or prevent clinically significant deterioration that could result in: [Permanent disability neurological or ] I provided critical care services requiring my management, as noted below: Chart data review, documentation time, medication orders and management, vital sign assessments/reviewing monitor data, ordering and reviewing lab tests, ordering and interpreting/reviewing x-rays and diagnostic studies, care of the patient and discussion of the patient with the admitting physicians. Medical Decision Making MDM Narrative Medical decision making narrative: Due to the abnormalities noted on the patient 's EKG, primarily of inferior ST depressions albeit without ST elevations. Patient's elevation of glucose in the 300s, the patient will be provided with aspirin 162 mg p.o. 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 Medical Screen Exam Complete: Yes Emergency Medical Condition: Yes Lab Data Lab results reviewed: Yes I reviewed the patient's lab results. Result diagrams: 03/18/18 11:25 03/18/18 11:25 Lab Results 03/18/18 03/18/18 03/18/18 Range/Units 11:09 11:25 11:25 CBC w Diff Auto diff final WBC 6.1 (4.0-11.0) th/mm3 RBC 4.03 (4.00-5.30) mil/mm3 Hgb 14.0 (11.6-15.3) gm/dL Hct 41.2 (35.0-46.0) % MCV 102.2 H (80.0-100.0) fL MCH 34.7 H (27.0-34.0) pg MCHC 33.9 (32.0-36.0) % RDW 12.4 (11.6-17.2) % Plt Count 225 (150-450) th/mm3 MPV 8.6 (7.0-11.0) fL Neut % (Auto) 58.7 (16.0-70.0) % Lymph % (Auto) 30.9 (9.0-44.0) % Hill % (Auto) 7.1 (0.0-8.0) % Eos % (Auto) 2.5 (0.0-4.0) % Baso % (Auto) 0.8 (0.0-2.0) % Neut # (Auto) 3.6 (1.8-7.7) th/mm3 Lymph # (Auto) 1.9 (1.0-4.8) th/mm3 Hill # (Auto) 0.4 (0.0-0.9) th/mm3 Eos # (Auto) 0.2 (0.0-0.4) th/mm3 Baso # (Auto) 0.0 (0.0-0.2) th/mm3 WBC Differential . Differential Comment . PT (9.8-11.6) sec INR Ratio APTT (24.3-30.1) sec Sodium (136-145) meq/L Potassium (3.5-5.1) meq/L Chloride (98-107) meq/L Carbon Dioxide (21.0-32.0) meq/L Anion Gap (5-15) meq/L BUN (7-18) mg/dL Creatinine (0.50-1.00) mg/dL Estimated GFR (>89) mL/min POC Glucose 365 H (68-110) mg/dl Random Glucose (74-106) mg/dL Calcium (8.5-10.1) mg/dL Total Bilirubin (0.2-1.0) mg/dL AST (15-37) U/L ALT (10-53) U/L Alkaline Phosphatase (45-117) U/L Total Creatine Kinase (26-192) U/L Troponin I (0.02-0.05) ng/mL B-Natriuretic Peptide 149 H (0-100) pg/mL Total Protein (6.4-8.2) g/dL Albumin (3.4-5.0) g/dL Lipase (73-393) U/L 03/18/18 03/18/18 Range/Units 11:25 11:25 CBC w Diff WBC (4.0-11.0) th/mm3 RBC (4.00-5.30) mil/mm3 Hgb (11.6-15.3) gm/dL Hct (35.0-46.0) % MCV (80.0-100.0) fL MCH (27.0-34.0) pg MCHC (32.0-36.0) % RDW (11.6-17.2) % Plt Count (150-450) th/mm3 MPV (7.0-11.0) fL Neut % (Auto) (16.0-70.0) % Lymph % (Auto) (9.0-44.0) % Hill % (Auto) (0.0-8.0) % Eos % (Auto) (0.0-4.0) % Baso % (Auto) (0.0-2.0) % Neut # (Auto) (1.8-7.7) th/mm3 Lymph # (Auto) (1.0-4.8) th/mm3 Hill # (Auto) (0.0-0.9) th/mm3 Eos # (Auto) (0.0-0.4) th/mm3 Baso # (Auto) (0.0-0.2) th/mm3 WBC Differential Differential Comment PT 10.1 (9.8-11.6) sec INR 1.0 Ratio APTT 24.8 (24.3-30.1) sec Sodium 134 L (136-145) meq/L Potassium 4.1 (3.5-5.1) meq/L Chloride 100 (98-107) meq/L Carbon Dioxide 26.4 (21.0-32.0) meq/L Anion Gap 8 (5-15) meq/L BUN 13 (7-18) mg/dL Creatinine 0.60 (0.50-1.00) mg/dL Estimated GFR Greater than 89 (>89) mL/min POC Glucose (68-110) mg/dl Random Glucose 362 H (74-106) mg/dL Calcium 9.0 (8.5-10.1) mg/dL Total Bilirubin 0.5 (0.2-1.0) mg/dL AST 13 L (15-37) U/L ALT 20 (10-53) U/L Alkaline Phosphatase 84 (45-117) U/L Total Creatine Kinase 53 (26-192) U/L Troponin I 0.64 H* (0.02-0.05) ng/mL B-Natriuretic Peptide (0-100) pg/mL Total Protein 7.3 (6.4-8.2) g/dL Albumin 3.6 (3.4-5.0) g/dL Lipase 137 (73-393) U/L Imaging Data Radiologist's impression: Chest X-Ray 03/18/18 11:09 CONCLUSION: 1. Minimal atelectatic changes in the medial aspect of the right hemidiaphragm. 2. Otherwise, no acute cardiopulmonary process. ECG Data EKG Prior to Arrival: Yes Attestation: I personally reviewed and interpreted this ECG as follows: Prior ECG tracings: available for review Interpretation: nsr, no further st elev on v1/v2 but II/III/avf still have 0.5 to 1mm depression on these leads. Discharge Plan Discharge Disposition Patient Disposition: 30 Still Patient Discharge Condition Condition: Fair Discharge Details Diagnosis: ACS (acute coronary syndrome) Physicians Team ED Provider: Florentino Jackson Primary Care Provider: Vickey Cooper Rxs /Orders / Referrals /Forms Prescriptions: No Action atorvastatin [Lipitor] 20 mg Tablet 20 mg PO DAILY RF: 0 insulin NPH and regular human [Novolin 70/30 U-100 Insulin] 100 unit/mL (70-30 ) Suspension 25 unit SUB-Q DAILY RF: 0 insulin regular human [Novolin R Regular U-100 Insuln] 100 unit/mL Solution 1 sliding scale dose SUB-Q UD RF: 0 Status ED Status: With Doctor
[2018-03-18 11:32] LABS: Baso % (Auto) 0.8 % (0.0-2.0); Eos # (Auto) 0.2 th/mm3 (0.0-0.4); Eos % (Auto) 2.5 % (0.0-4.0); Hematocrit 41.2 % (35.0-46.0); Lymph # (Auto) 1.9 th/mm3 (1.0-4.8); Lymph % (Auto) 30.9 % (9.0-44.0); Mean Corpuscular HGB Conc 33.9 % (32.0-36.0); Mean Corpuscular Hemoglobin 34.7 pg (27.0-34.0); Mean Corpuscular Volume 102.2 fL (80.0-100.0); Mean Platelet Volume 8.6 fL (7.0-11.0); Mono # (Auto) 0.4 th/mm3 (0.0-0.9); Mono % (Auto) 7.1 % (0.0-8.0); Neut # (Auto) 3.6 th/mm3 (1.8-7.7); Neut % (Auto) 58.7 % (16.0-70.0); Platelet Count 225 th/mm3 (150-450); Red Blood Count 4.03 mil/mm3 (4.00-5.30); Red Cell Distribution Width 12.4 % (11.6-17.2); White Blood Count 6.1 th/mm3 (4.0-11.0)
[2018-03-18 11:37] LABS: Chloride 100 meq/L (98-107); Potassium 4.1 meq/L (3.5-5.1); Sodium 134 meq/L (136-145)
--- NOTE | 2018-03-18 11:40 | XR ---
EXAM DATE: 03/18/2018 11:36 AM EDT AGE/SEX: 47 years / Female INDICATIONS: Chest pain & abnormal EKG in primary care office. CLINICAL DATA: This is the patient's initial encounter. Patient reports that signs and symptoms have been present for 3 days and indicates a pain score of 4/10. MEDICAL/SURGICAL HISTORY: Diabetes. Hypercholesterolemia. Smoker. None. COMPARISON: [facility], CHEST SINGLE AP, 01/11/2017. . FINDINGS: A single AP view of the chest demonstrates the lungs to be symmetrically aerated with minimal atelect atic changes along the medial aspect of the right hemidiaphragm. Lungs are otherwise clear. The card iomediastinal contours are unremarkable. Osseous structures are intact. CONCLUSION: 1. Minimal atelectatic changes in the medial aspect of the right hemidiaphragm. 2. Otherwise, no acute cardiopulmonary process. Electronically signed by: Cristino Valentino MD 03/18/2018 11:39 AM EDT
[2018-03-18 11:41] LABS: Albumin 3.6 g/dL (3.4-5.0); Anion Gap 8 meq/L (5-15); Blood Urea Nitrogen 13 mg/dL (7-18); Carbon Dioxide 26.4 meq/L (21.0-32.0); Glucose,Random 362 mg/dL (74-106)
[2018-03-18 11:44] LABS: Alanine Aminotransferase 20 U/L (10-53); Aspartate Aminotransferase 13 U/L (15-37); Glomerular Filtration Rate Greater Than 89 mL/min (>89)
[2018-03-18 11:46] LABS: Total Protein 7.3 g/dL (6.4-8.2)
[2018-03-18 11:47] LABS: Alkaline Phosphatase 84 U/L (45-117)
--- NOTE | 2018-03-18 11:47 | ECG ---
Date Performed: 03/18/2018 Time Performed: 10:51:59 PTAGE: 47 years EKG: Sinus rhythm WITH OCCASIONAL VENTRICULAR PREMATURE COMPLEXES LEFT ATRIAL ENLARGEMENT SEPTAL MYOCARDIAL INFARCTION ABNORMAL ECG PREVIOUS TRACING : 01/09/2017 09.02 Compared to previous tracing, PVCs are now present, nonspec ific ST changes have resolved. DOCTOR: Nicola May Interpretating Date/Time 03/18/2018 11:47:44
[2018-03-18 11:49] LABS: Activated Partial Thrombo Time 24.8 sec (24.3-30.1); Prothrombin Time 10.1 sec (9.8-11.6)
[2018-03-18 11:51] LABS: Creatine Kinase 53 U/L (26-192)
[2018-03-18 11:52] LABS: Troponin I 0.64 ng/mL (0.02-0.05)
[2018-03-18] MEDS ORDERED: Heparin 10,000 UNITS/10 ML Vial (for IV use) IV.PUSH STA (11:54)
[2018-03-18 12:01] LABS: Lipase 137 U/L (73-393)
[2018-03-18] MEDS ORDERED: Dextrose 50% in Water 50 ML Vial IV.PUSH PRN (13:03)
--- NOTE | 2018-03-18 13:03 | P.HP ---
History of Present Illness Primary Care Physician: Yue Cooper MD History of Present Illness: 47-year-old female with a history of type 2 diabetes and tobacco abuse presents with chest pain and NSTEMI. Obvious symptoms began last when she had an episode of chest pain lasting 3 hours that subsided. At the time she blamed it on acid reflux and decided not to seek medical treatment. She was chest pain -free on Friday and Friday but then starting Friday had recurrence of episodic chest pain that lasted 1-2 hours, not well relieved with antiacids. This morning she had a scheduled visit with her primary care provider, Dr. Gardner , who performed an EKG and noted some anterior lead ischemic changes. She was sent directly to the ER for workup revealed elevated troponins in addition to verify EKG changes. There were no ST changes. Case was reviewed by cardiology who determined that she was a candidate for immediate heart catheterization. She is currently in the ER awaiting transfer to the main hospital for cardiac catheterization. Her complaints are anxiety. She has a history of diabetes and is concerned that her blood sugar, at 360, is too high may lead to DKA. She is requested insulin as a single dose. Inpatient Certification: I certify that the inpatient services were ordered in accordance with Medicare regulations governing the order. This includes certification that hospital inpatient services are reasonable and necessary and in the case of services not specified as inpatient-only under 42 CFR 419.22(n), that they are appropriately provided as inpatient services in accordance to with the 2-midnight benchmark under 43 CFR 412.3(e) Review of Systems Constitutional: Denies chills, Denies fevers, Denies daytime sleepiness,Denies fatigue, Denies weakness, Denies headache, Denies malaise, Denies night sweats , Denies anorexia, Denies increased appetite Denies weight gain, Denies weight loss Eyes: Denies visual changes, Denies visual loss, Denies double vision, Denies blind spots, Denies blurry vision, Denies discharge, Denies dry eyes, Denies floaters, Denies irritation, Denies itchy eyes, Denies pain, Denies photophobia , Denies bulging eyes Ears, Nose, Mouth, and Throat: Denies bleeding gums, Denies change in voice, Denies difficulty swallowing, Denies abnormal hearing, Denies ear discharge, Denies ear pain, Denies tinitus, Denies vertigo, Denies facial pain, Denies hoarseness, Denies lip swelling, Denies mouth lesions, Denies nasal congestion, Denies nasal discharge, Denies nasal obstruction, Denies neck lump, Denies neck pain, Denies nose pain, Denies nosebleed, Denies post nasal drip, Denies sinus pain, Denies sinus pressure, Denies sore throat, Denies throat swelling, Denies tongue swelling Cardiovascular: See HPI Respiratory: Denies change in phlegm color, Denies chest congestion, Denies cough, Denies coughing up blood, Denies excessive phlegm production, Denies pain on inspiration, Denies pain with cough, Denies shortness of breath, Denies shortness of breath with activity, Denies snoring, Denies stridor, Denies wheezing, Denies other Gastrointestinal: Denies abdominal pain, Denies bleeding, Denies stool color changes, Denies bloating, Denies change in bowel habits, Denies coffee ground vomit, Denies constipation, Denies feeling full early, Denies heartburn, Denies loose stools, Denies nausea, Denies vomiting, Denies pain with swallowing Skin/Breast: Denies bleeding lesions, Denies boil, Denies change in skin color, Denies changing lesions, Denies itching, Denies redness, Denies rash,Denies skin ulcer, Denies sores, Neurologic: Denies abnormal speech, Denies abnormal walking, Denies dizziness, Denies fainting, Denies frequent falls, Denies lack of coordination, Denies localized weakness, Denies loss of vision, Denies memory loss, Denies numbness, Denies convulsions, Denies tingling/numbness/burning sensations, Denies tremor Psychiatric: Denies anxiety, Denies behavioral changes, Denies depression, Denies memory loss, Denies hallucinations, Denies thoughts of hurting/killing others, Denies thoughts of hurting/killing self Endocrine: Denies cold intolerance, Denies excessive sweating, Denies flushing, Denies heat intolerance, Denies increased thirst, Denies weight gain or loss Hematologic/Lymphatic: Denies easy bleeding, Denies easy bruising, Denies enlarged lymph node Allergic/Immunologic: Denies GI upset with certain foods, Denies hives, Denies seasonal runny nose PMFSH - History History Provided By: Patient - Medical History Medical History: Medical History (Last Updated 03/18/18 @ 12:55 by Onel Mosher MD) Coronary artery disease Dyslipidemia History of amputation of left great toe Tobacco abuse Type 2 diabetes mellitus - Family History Family History: Family History (Last Updated 03/18/18 @ 12:56 by Onel Mosher MD) Other Type 2 diabetes mellitus - Tobacco History Second Hand Smoke Exposure: Yes Tobacco Use In Past 30 Days: Yes Smoking Status: Current every day smoker Tobacco Type: Cigarettes - Alcohol History How Often Do You Have a Drink Containing Alcohol: 2 to 4 times a month - Substance Use History Substance History: No History of Abuse - Travel History Recent Travel in the [place] Within the Last 8 Weeks: No Recent Travel Out of the Country Within the Last 8 Weeks: No - Immunization History Tetanus Immunization: Unsure Hx Influenza Vaccine This Season: No Medications and Allergies Active Medications: Active Medications Sodium Chloride (Ns Flush) 2 ml IV.FLUSH UNSCH PRN PRN Reason: FLUSH AFTER USING IV ACCESS Allergies Allergy/AdvReac Type Severity Reaction Status Date / Time penicillin G Allergy Severe SWELLING Verified 03/18/18 11:04 Home Medications Medication Instructions Recorded Confirmed Type atorvastatin [Lipitor] 20 mg PO DAILY 03/18/18 03/18/18 History insulin NPH and regular human 25 unit SUB-Q DAILY 03/18/18 03/18/18 History [Novolin 70/30 U-100 Insulin] insulin regular human [Novolin R 1 sliding scale dose SUB-Q UD 03/18/18 History Regular U-100 Insuln] Exam Vital signs: Vital Signs 03/18/18 11:04 03/18/18 11:08 03/18/18 11:26 Temperature 99.6 F Pulse Rate 94 H 97 H Respiratory Rate 18 Blood Pressure 128/77 Blood Pressure [Left Arm] 131/78 Blood Pressure [Right Arm] 124/79 Pulse Oximetry 99 99 03/18/18 11:30 Temperature Pulse Rate 97 H Respiratory Rate 18 Blood Pressure 141/86 H Blood Pressure [Left Arm] Blood Pressure [Right Arm] Pulse Oximetry 99 Intake & Output 03/17/18 03/18/18 03/18/18 18:59 06:59 18:59 Weight 58.1 kg Narrative: GENERAL: AAOx3, no acute distress, adequate nutrition SKIN: Warm and dry, no rashes. HEAD: Atraumatic. Normocephalic. EYES: Pupils equal, round, reactive to light. No scleral icterus. No injection or drainage. ENT: No nasal bleeding or discharge. Moist mucous membranes. Nonerythematous oropharynx. NECK: Trachea midline. No JVD. Thyroid size within normal limits. CARDIOVASCULAR: Regular rate and rhythm. No murmur, no gallops, no rubs. RESPIRATORY: Clear and equal to auscultation bilaterally. No crackles, no wheezes. No accessory muscle use. GASTROINTESTINAL: Abdomen soft, non-tender, nondistended, normal active bowel sounds. Hepatic and splenic margins not palpable. MUSCULOSKELETAL: Extremities without clubbing or cyanosis. No obvious deformities. No edema. NEUROLOGICAL: Awake and alert. No obvious cranial nerve deficits. Motor grossly within normal limits. No focal deficits. Five out of 5 muscle strength in the arms and legs. Normal speech. PSYCHIATRIC: Appropriate mood and affect; insight and judgment normal. Results - Labs CBC & Chem 7: 03/18/18 11:25 03/18/18 11:25 Labs: Laboratory Results - last 24 hr 03/18/18 03/18/18 03/18/18 11:09 11:25 11:25 CBC w Diff Auto diff final WBC 6.1 RBC 4.03 Hgb 14.0 Hct 41.2 MCV 102.2 H MCH 34.7 H MCHC 33.9 RDW 12.4 Plt Count 225 MPV 8.6 Neut % (Auto) 58.7 Lymph % (Auto) 30.9 Phillips % (Auto) 7.1 Eos % (Auto) 2.5 Baso % (Auto) 0.8 Neut # (Auto) 3.6 Lymph # (Auto) 1.9 Phillips # (Auto) 0.4 Eos # (Auto) 0.2 Baso # (Auto) 0.0 WBC Differential . Differential Comment . PT INR APTT Sodium Potassium Chloride Carbon Dioxide Anion Gap BUN Creatinine Estimated GFR POC Glucose 365 H Random Glucose Calcium Total Bilirubin AST ALT Alkaline Phosphatase Total Creatine Kinase Troponin I B-Natriuretic Peptide 149 H Total Protein Albumin Lipase 03/18/18 03/18/18 11:25 11:25 CBC w Diff WBC RBC Hgb Hct MCV MCH MCHC RDW Plt Count MPV Neut % (Auto) Lymph % (Auto) Phillips % (Auto) Eos % (Auto) Baso % (Auto) Neut # (Auto) Lymph # (Auto) Phillips # (Auto) Eos # (Auto) Baso # (Auto) WBC Differential Differential Comment PT 10.1 INR 1.0 APTT 24.8 Sodium 134 L Potassium 4.1 Chloride 100 Carbon Dioxide 26.4 Anion Gap 8 BUN 13 Creatinine 0.60 Estimated GFR Greater than 89 POC Glucose Random Glucose 362 H Calcium 9.0 Total Bilirubin 0.5 AST 13 L ALT 20 Alkaline Phosphatase 84 Total Creatine Kinase 53 Troponin I 0.64 H* B-Natriuretic Peptide Total Protein 7.3 Albumin 3.6 Lipase 137 - Imaging Impressions Chest X-Ray 03/18/18 11:09 CONCLUSION: 1. Minimal atelectatic changes in the medial aspect of the right hemidiaphragm. 2. Otherwise, no acute cardiopulmonary process. Caprini VTE Risk Assessment Caprini VTE Risk Assessment: Moderate/High Risk (score >= 2) Caprini Risk Assessment Model: Point Value = 1 Point Value = 2 Point Value = 3 Point Value = 5 Age 41-60 Minor surgery BMI > 25 kg/m2 Swollen legs Varicose veins or History of unexplained or recurrent spontaneous Oral contraceptives or hormone replacement Sepsis (< 1 month) Serious lung disease, including pneumonia (< 1 month) Abnormal pulmonary function Acute myocardial infarction Congestive heart failure (< 1 month) History of inflammatory bowel disease Medical patient at bed rest Age 61-74 Arthroscopic surgery Major open surgery (> 45 min) Laparoscopic surgery (> 45 min) Malignancy Confined to bed (> 72 hours) Immobilizing plaster cast Central venous access Age >= 75 History of VTE Family history of VTE Factor V Leiden Prothrombin [id number] Lupus anticoagulant Anticardiolipin antibodies Elevated serum homocysteine Heparin-induced thrombocytopenia Other congenital or acquired thrombophilia Stroke (< 1 month) Elective arthroplasty Hip, pelvis, or leg fracture Acute spinal cord injury (< 1 month) Prophylaxis Regimen: Total Risk Factor Score Risk Level Prophylaxis Regimen 0-1 Low Early ambulation 2 Moderate Order ONE of the following: *Sequential Compression Device (SCD) *Heparin 5000 units SQ BID 3-4 Higher Order ONE of the following medications: *Heparin 5000 units SQ TID *Enoxaparin/Lovenox 40 mg SQ daily (WT < 150 kg, CrCl > 30 mL/min) *Enoxaparin/Lovenox 30 mg SQ daily (WT < 150 kg, CrCl > 10-29 mL/min) *Enoxaparin/Lovenox 30 mg SQ BID (WT < 150 kg, CrCl > 30 mL/min) AND/OR *Sequential Compression Device (SCD) 5 or more Highest Order ONE of the following medications: *Heparin 5000 units SQ TID (Preferred with Epidurals) *Enoxaparin/Lovenox 40 mg SQ daily (WT < 150 kg, CrCl > 30 mL/min) *Enoxaparin/Lovenox 30 mg SQ daily (WT < 150 kg, CrCl > 10-29 mL/min) *Enoxaparin/Lovenox 30 mg SQ BID (WT < 150 kg, CrCl > 30 mL/min) AND *Sequential Compression Device (SCD) Assessment and Plan - Plan NSTEMI, Chest Pain Onset starting last , intermittent, suspicious EKG changes without ST elevation or depression, elevated troponin level at 0.64 Patient is transferring to the main floor immediate cardiac catheterization Appreciate cardiology consult and timely intervention Type 2 Diabetes, Hyperglycemia Patient is concerned that her sugar is 360, she has a history of DKA at levels near that We will give single dose of regular insulin 6 units, follow with Accu-Cheks and sliding scale coverage after procedure Diabetic diet Anxiety Anxious about procedure, anxious about chest pain 0.5 mg of Ativan IV 1 Tobacco Abuse Patient was counseled to quit by her father and myself DVT Prophylaxis Per primary team following recovery from heart catheterization
[2018-03-18] MEDS ORDERED: Temazepam 15 MG Capsule PO PRN (13:05)
[2018-03-18] MEDS ORDERED: Acetaminophen 325 MG Tablet PO PRN (13:05)
[2018-03-18] MEDS ORDERED: Heparin/NS PF Inj 1,500 ML ONE (14:06)
[2018-03-18] MEDS ORDERED: fentaNYL Citrate Inj 100 MCG/2 ML Ampul ONE (14:06)
[2018-03-18] MEDS ORDERED: Cangrelor Inj 50,000 MCG Vial ONE (15:14)
--- NOTE | 2018-03-18 15:36 | CATHPROC ---
[employer] HIS Report Study Information Study Number Admission Scheduled Start Study Start [id number] Mar 18 2018 12:13PM 03/18/2018 Mar 18 2018 2:06PM [place] [facility] Cardiac Catheterization Admit Source Facility Department Emergency department [facility] - Social Work Nurse Physician and Clinical Staff Initial Den Santillan Bite Block Maker Randy Valdez,JOYCE Other cathlab, cathlab Recorder Guille Lam RCIS(BS) Scrub Gianfranco Luu,RT(R) Procedures Performed Procedure Location (Site) Vessel Name Angiogram LV LV Ventricle Coronary Angiograms LCA Left Coronary Coronary Angiograms RCA Right Coronary Drug Eluting Inflatio LAD Mid Left Coronary L Heart Cath PTCA LAD Mid Left Coronary Wire insertion Fem Art (right) Femoral Art Equipment Time Paraffin Plant Sweater Operator Description Size Mfg Part Number Used/Scraped WIRE, WHISPER W/HYDROCOAT [id number] 14:45 [employer] 190CM Used 190CM *[id number] TRANSDUCER, TRInvrepAVE [id number] 14:08 ANTON NORRIS * Used W/STOCKCOCK *[id number] [id number] *[id number] [id number] *[id number] [id number] *[id number] *[id number] *[id number] 14:08 Stem [employer] INDUSTRIES PACK, CCL CUSTOM * Used *[id number] 14:47 MEDTRONIC BALLOON, 2.0 X 10MM EUPHORA 10MM Used *[id number] BALLOON, 2.5 X 8MM NC [id number] 15:03 MEDTRONIC 8MM Used EUPHORA *[id number] 14:54 MEDTRONIC STENT, 2.5 15MM CESAR 2.5 15MM Used *[id number] 14:36 [employer] MEDICAL 30 HOMAR INDEFLATOR Used *[id number] 14:36 [employer] MEDICAL SHEATH, FR6.5 PRELUDE 11CM FR 6.5 038ACT Used *[id number] 14:08 [employer] WIRE, 3MMJ .035 180CM 180CM Used *[id number] PROBE COVER, STERILE [id number] 14:08 hhgregg MEDICAL * Used ULTRASOUND W/ GEL *[id number] 14:08 NAMIC MANIFOLD, 4 PORT * Used *[id number] 14:08 NAMIC TUBING, HIGH PRESSURE 48" 48" Used *[id number] TUBING, PRESSURE INJECTION [id number] 14:14 NAMIC 72" Used 72" *[id number] 14:08 NYCOMED OMNIPAQUE, 350 MG, 150ML 150ML [id number] Used 14:27 NYCOMED OMNIPAQUE, 350 MG, 50ML 50ML [id number] Used [id number] 14:08 TERUMO MEDICAL SHEATH, FR5 TERUMO (10CM) FR 5 Used *[id number] Equipment Model, Serial, Lot Number and Expiration Data Description Model Number Serial Number Lot Number Expiration Date BALLOON, 2.5 X 8MM NC EUPHORA [id number] 08-06-2019 STENT, 2.5 15MM CESAR [id number] 10-13-2019 History: Current Medications Medication Dosage/Unit Route Frequency Last Date/Time Taken Statins (any) ASA History: Allergies Allergy Reaction Penicillin SWELLING penicillin G SWELLING History: Risk Factors Family History of Hypertension Dyslipidemia Previous IA Previous Heart Failure Premature CAD No Yes No No No Prior Valve Prior PCI Prior CABG Surgery No No No Cerebrovascular Peripheral Artery Chronic Lung On Dialysis Diabetes Diabetes Therapy Disease Disease Disease No No No No Yes Insulin History: Symptoms/Diagnosis Selection Items Chest pain History: Stress Tests Stress or Imaging Studies Performed No History: Other Current Smoker Method Packs a Day Years Used Pack Years Yes Cigarettes 1 30 30 Labs Hgb (g/dl) Hct (%) WBC (l/cumm) Platelets (thousands) 11.60-17.00 35.00-51.00 4.00-11.00 150.00-450.00 14.0 41.2 6.1 225 Glucose (mg/dl) BUN (mg/dl) Creatinine (mg/dl) BUN:Creatinine (1:x) 74.00-106.00 7.00-18.00 0.50-1.30 10.00-20.00 362 13 0.6 21.7 Na (meq/l) K (meq/l) 136.00-145.00 3.50-5.10 134 1.1 INR (PTT:PT) 0.90-1.10 1 Troponin I (ng/ml) CPK (u/l) 0.02-0.05 26.00-308.00 0.64 53 Medication Medication Total Dose (Bolus/Oral) Medication Total Dosage/Unit 1% XYLOCAINE 20 mL BRILINTA 180 mg FENTANYL 50 mcg HEPARIN 5000 units NTG (IC) 200 mcg OXYGEN 2 l/min VERSED 2 mg Medications (Bolus/Oral) Medication Time Given Dosage/Unit Administered By Reason VERSED 03/18/2018 2:16:19 PM 2 mg Randy Valdez 2 mg VERSED given in lab by Randy Valdez RN in Right Antecubital via Peripheral IV. Ordered by Den Williamson. FENTANYL 03/18/2018 2:17:27 PM 50 mcg Randy Valdez 50 mcg FENTANYL given in lab by Randy Valdez RN in Right Antecubital via Peripheral IV. Ordered by Den Luis. 1% XYLOCAINE 03/18/2018 2:22:36 PM 20 mL Gianfranco Luu 20 mL 1% XYLOCAINE given in lab by Gianfranco Luu RT(R) in Right Groin via Subcutaneous. Ordered by Den Luis. OXYGEN 03/18/2018 2:24:37 PM 2 l/min Randy Valdez 2 l/min OXYGEN given in lab by Randy Valdez RN via Nasal. Ordered by Den Luis. HEPARIN 03/18/2018 2:39:25 PM 5000 units Randy Valdez 5000 units HEPARIN given in lab by Randy Valdez RN in Right Antecubital via Peripheral IV. Ordered by Den Luis. NTG (IC) 03/18/2018 2:43:32 PM 100 mcg Gianfranco Luu 100 mcg NTG (IC) given in lab by Gianfranco Luu RT(R) via Intra-coronary. Ordered by Savanah Luis NTG (IC) 03/18/2018 3:00:17 PM 100 mcg Gianfranco Luu 100 mcg NTG (IC) given in lab by Gianfranco Luu RT(R) via Intra-coronary. Ordered by Savanah Luis BRILINTA 03/18/2018 3:18:00 PM 180 mg Randy Valdez 180 mg BRILINTA given in lab by Randy Valdez RN via Oral. Ordered by Den Luis. Medication (Drip) Medication Time Given Dosage/Unit Concentration/Unit Diluent (ml) Solution IV Solutions 03/18/2018 2:06:18 PM 0 mL (IV) 500 NaCl .9 Patient arrived on IV Solutions in Right Antecubital via Peripheral IV. Pump/Drip Flow = 20 ml/hr usi ng NaCl .9. Ordered by Den Luis. KENGREAL BOLUS 03/18/2018 3:21:51 PM 8.1 mL 8.1 mL KENGREAL BOLUS given in lab by Randy Valdez RN in Right Antecubital via Peripheral IV. Order ed by Den Luis. KENGREAL DRIP 03/18/2018 3:22:15 PM 4 mcg/kg/min 50 mg 250 NaCl .9 4 mcg/kg/min KENGREAL DRIP given in lab by Randy Valdez RN in Right Antecubital via Peripheral IV. Pump/Drip Flow = 64.8 ml/hr using NaCl .9 with a concentration of 50 mg in 250 ml. Ordered by Den Luis. Initial Case Assessment Cardiovascular HR Rhythm NIBP Chest Pain 97 nsr 105/80 0 Edema Present Skin color Skin None Normal Warm Dry Neurological State Oriented to time-place- Alert Moves all extremities person Respiration - General Respiration Rate SpO2 (%) (B/min) 15 100 Initial Case Assessment Cardiovascular HR Rhythm NIBP Chest Pain 100 stachy 133/88 0 Edema Present Skin color Skin None Normal Warm Dry Neurological State Oriented to time-place- Alert Moves all extremities person Respiration - General Respiration Rate SpO2 (%) (B/min) 15 100 Chronological Log Time Study Chronological Log 13:56:00 Patient arrived via Bed. 13:56:01 Patient Name, D.O.B, / Armband Verified By R.N. 13:56:02 Consent signed by the physician and the patient and verified by the Social Work Nurse staff. 14:06:09 Pre-op and post- op instructions given; patient acknowledges understanding of instructions. 14:06:11 Presedation assessment performed by Social Work Nurse RN. 14:06:12 Immediate Presedation assesment performed by physician. 14:06:13 Patient has been NPO for More than 6Hrs. 14:06:13 Skin Breakdown- none per patient 14:06:14 Patient Warmer Placed on the Table. 14:06:15 Isabel Prominences Protected 14:06:18 A # 20 IV was noted in the Antecubital (right). Grade = 0 Patient arrived on IV Solutions in Right Antecubital via Peripheral IV. Pump/Drip Flow = 20 ml/ hr using NaCl .9. Ordered 14:06:18 by Den Luis. 14:06:19 History and physical on the chart or being dictated. Vitals capture started with the following parameters, Patient=Adult, Interval=5 min, Initial Pr oqucwq=399 mmHg, 14:06:48 Deflation Rate=5 mmHg, Cuff placed on Left Leg 14:07:21 HR=95 bpm, MVGK=249/80 mmhg, TgS8=073.0 %, Resp=14 B/min, Pain=0, Foster=10, Frausto=2 Assessment: Initial Case, HR=97 BPM, Rhythm=nsr, LCKX=628/80 mmhg, Chest Pain=0, Edema=None, Co alison=Normal, Skin = Warm, Dry 14:07:43 Neurological: State=Alert, Ox3, MARCIAL Respiration: Resp=15 B/min, DbA0=652 % 14:09:16 Bilateral groins prepped with 2% chlorhexidine, and draped after a 3 minute waiting time. 14:12:18 HR=95 bpm, JRXB=816/72 mmhg, GoT4=745.0 %, Resp=14 B/min, Pain=0, Foster=10, Frausto=2 14:13:31 MD paged 14:13:37 Reference ECG taken 14:15:12 Pressure channel 1 zeroed. 14:16:19 2 mg VERSED given in lab by Randy Valdez RN in Right Antecubital via Peripheral IV. Order ed by Den Luis. 14:16:30 MD arrived. 14:16:33 Contrast Scanned 14:16:33 Immediate Presedation assesment performed by physician. 14:17:21 HR=95 bpm, XUAP=782/67 mmhg, SpO2=99.0 %, Resp=15 B/min, Pain=0, Foster=10, Frausto=2 14:17:27 50 mcg FENTANYL given in lab by Randy Valdez RN in Right Antecubital via Peripheral IV. O rdered by Den Luis. 14:22:20 HR=94 bpm, NIBP=94/54 mmhg, SpO2=96.0 %, Resp=14 B/min, Pain=0, Foster=10, Frausto=2 Time Out. Correct patient, correct procedure, correct physician, labs, allergies, and equipment verified with laboratory apparatus glass grinder 14::33 team present. Fire risk assesment completed (see hard stop sheet for coding). Time Out Conc urred by MD and individual staff in procedure. 14::36 Case Start 20 mL 1% XYLOCAINE given in lab by Gianfranco Luu, RT(R) in Right Groin via Subcutaneous. Orde red by Toby, 14::36 Den. 14:24:37 2 l/min OXYGEN given in lab by Randy Valdez, RN via Nasal. Ordered by Den Luis. 14:25:10 Access site was Right Femoral Artery. 14:25:51 A SHEATH, FR5 TERUMO (10CM) FR 5 was advanced into the Fem Art (right) using the Percutaneo us technique. A PIGTAIL ANG. INFINITI CATHETER FR 5 was advanced over a wire. OMNIPAQUE, 350 MG, 150ML 150ML was used 14:26:20 for injections. Recorded Pressure: LV, HR=94, Condition=Condition 1 14:26:40 (Left Ventricle) LV 84/4/8 14:26:52 The LV was injected at 10 cc/sec for a total of 30. OMNIPAQUE, 350 MG, 50ML 50ML used. 14:27:19 HR=96 bpm, NIBP=91/51 mmhg, SpO2=97.0 %, Resp=14 B/min, Pain=0, Foster=10, Frausto=2 Recorded Pressure: LV, Ao, HR=97, Condition=Condition 1 14:29:00 (Left Ventricle) LV 86/4/8, (Aorta) Ao 84/53/68 14:29:11 Catheter was removed A JL 4.0 INFINITI CATHETER FR 5 was advanced over a wire. OMNIPAQUE, 350 MG, 150ML 150ML was us ed for 14:29:12 injections. 14:30:51 The LCA was injected and visualized at various angles. OMNIPAQUE, 350 MG, 150ML 150ML used . 14:32:18 HR=89 bpm, NIBP=94/61 mmhg, SpO2=97.0 %, Resp=15 B/min, Pain=0, Foster=10, Frausto=2 14:35:48 Catheter was removed A AR MOD INFINITI CATHETER FR 5 was advanced over a wire. OMNIPAQUE, 350 MG, 150ML 150ML was us ed for 14:35:48 injections. 14:36:58 The RCA was injected and visualized at various angles. OMNIPAQUE, 350 MG, 150ML 150ML used . 14:37:19 HR=89 bpm, NIBP=96/57 mmhg, SpO2=97.0 %, Resp=16 B/min, Pain=0, Foster=10, Frausto=2 14:38:19 Catheter was removed A SHEATH, FR6.5 PRELUDE 11CM FR 6.5 was exchanged in the Fem Art (right). This was necessary in order to 14:38:44 accomodate a larger catheter. 5000 units HEPARIN given in lab by Randy Valdez RN in Right Antecubital via Peripheral IV. Or dered by Toby 14:39:25 Den. A XB 3.5 GUIDE CATHETER FR 6 was advanced over a wire. OMNIPAQUE, 350 MG, 150ML 150ML was used for 14:41:30 injections. 14:42:20 HR=90 bpm, NIBP=87/55 mmhg, SpO2=99.0 %, Resp=15 B/min, Pain=0, Foster=10, Frausto=2 14:43:32 100 mcg NTG (IC) given in lab by Gianfranco Luu, RT(R) via Intra-coronary. Ordered by Den Williamson. 14:44:06 A WIRE, ATW MARKER 195CM 195CM was inserted via Fem Art (right). 14:45:04 Wire removed 14:45:26 A WIRE, WHISPER W/HYDROCOAT 190CM 190CM was inserted via Fem Art (right). 14:46:25 Interventional wire has crossed the lesion A BALLOON, 2.0 X 10MM EUPHORA 10MM was inserted over WIRE, WHISPER W/HYDROCOAT 190CM 190CM via the 14:46:59 LAD Mid. 14:47:19 HR=91 bpm, NIBP=88/54 mmhg, SpO2=97.0 %, Resp=14 B/min, Pain=0, Foster=10, Frausto=2 A BALLOON, 2.0 X 10MM EUPHORA 10MM over a WIRE, WHISPER W/HYDROCOAT 190CM 190CM in the LAD Mid was 14:47:59 inflated using a 30 HOMAR INDEFLATOR at 16 homar for 30 sec. A BALLOON, 2.0 X 10MM EUPHORA 10MM over a WIRE, WHISPER W/HYDROCOAT 190CM 190CM in the LAD Mid was 14:48:50 inflated using a 30 HOMAR INDEFLATOR at 16 homar for 30 sec. 14:51:11 Balloon Removed. 14:52:18 HR=89 bpm, VBAX=489/63 mmhg, SpO2=99.0 %, Resp=15 B/min, Pain=0, Foster=10, Frausto=2 A STENT, 2.5 15MM CESAR 2.5 15MM was advanced through a XB 3.5 GUIDE CATHETER FR 6 over a WIRE, WHISPER 14:52:34 W/HYDROCOAT 190CM 190CM. 14:57:56 HR=93 bpm, QJAO=210/75 mmhg, DfF7=073.0 %, Resp=14 B/min, Pain=0, Foster=10, Frausto=2 A STENT, 2.5 15MM CESAR 2.5 15MM was deployed using a 30 HOMAR INDEFLATOR at 11 atmospheres for 25 seconds in 14:58:59 the LAD Mid. 15:00:13 Delivery device removed 15:00:17 100 mcg NTG (IC) given in lab by Gianfranco Luu, RT(R) via Intra-coronary. Ordered by Den Williamson. 15:02:26 HR=93 bpm, ELJF=728/68 mmhg, XbV6=734.0 %, Resp=10 B/min, Pain=0, Foster=10, Frausto=2 A BALLOON, 2.5 X 8MM NC EUPHORA 8MM was inserted over WIRE, WHISPER W/HYDROCOAT 190CM 190CM via the 15:02:58 Fem Art (right). A BALLOON, 2.5 X 8MM NC EUPHORA 8MM over a WIRE, WHISPER W/HYDROCOAT 190CM 190CM in the LAD Mid was 15:05:12 inflated using a 30 HOMAR INDEFLATOR at 15 homar for 25 sec. A BALLOON, 2.5 X 8MM NC EUPHORA 8MM over a WIRE, WHISPER W/HYDROCOAT 190CM 190CM in the LAD Mid was 15:06:19 inflated using a 30 HOMAR INDEFLATOR at 15 homar for 25 sec. 15:07:21 HR=93 bpm, AAFO=380/83 mmhg, LqR9=667.0 %, Resp=14 B/min, Pain=0, Foster=10, Frausto=2 15:08:48 Balloon Removed. 15:08:54 Wire removed 15:09:02 Catheter was removed 15:09:23 An injection in the Fem Art (right) was made through the SHEATH, FR6.5 PRELUDE 11CM FR 6.5. 15:12:17 Case End (Physician broke scrub) Assessment: Initial Case, LL=789 BPM, Rhythm=stachy, JCCS=080/88 mmhg, Chest Pain=0, Edema=None , Color=Normal, Skin = Warm, Dry 15:12:21 Neurological: State=Alert, Ox3, MARCIAL Respiration: Resp=15 B/min, GlK7=763 % 15:12:25 HR=99 bpm, MMKU=851/88 mmhg, DdW5=001.0 %, Resp=12 B/min, Pain=0, Foster=10, Frausto=2 15:13:00 Catheter(s) removed without difficulty 15:13:02 Sterile dressing applied to site 15:13:02 No case complications noted. 15:13:03 Cine recording checked. 15:13:05 Bedside Report will be given. 15:13:06 Implantable Device card placed in patient's chart. 15:13:12 A Left Heart Cath was performed. 15:17:28 HR=91 bpm, BNAH=132/78 mmhg, JhZ6=567.0 %, Resp=12 B/min, Pain=0, Foster=10, Frausto=2 15:18:00 180 mg BRILINTA given in lab by Randy Valdez RN via Oral. Ordered by Den Lusi. 15:20:51 Vitals capture stopped. 15:20:52 Patient moved to stretcher 8.1 mL KENGREAL BOLUS given in lab by Randy Valdez RN in Right Antecubital via Peripheral IV . Ordered by Toby, 15:21:51 Den. 4 mcg/kg/min KENGREAL DRIP given in lab by Randy Valdez RN in Right Antecubital via Peripher al IV. Pump/Drip Flow 15:22:15 = 64.8 ml/hr using NaCl .9 with a concentration of 50 mg in 250 ml. Ordered by Den Luis . End Study - Contrast Media Used In Study Contrast Total Opened (mL) Total Used (mL) Total Wasted (mL) Omnipaque 185 185 0 End Study - Maximum Contrast Load Max Contrast Load (mL) 450.0 End Study - Radiation Exposure Fluoro Time (minutes) 9.5 End Study - Patient Disposition Complications Transferred To Interventional Outcome No Social Work Nurse Holding successful
[2018-03-18] MEDS ORDERED: Misc Info for Pharmacy OTHER STA (15:46)
--- NOTE | 2018-03-18 16:26 | P.CONCA ---
<Kim Harvey N - Last Filed: 03/18/18 16:04> History of Present Illness Service: Cardiology Consult date: 03/18/18 Reason for Consult: NSTEMI Primary Care Provider: Yue Cooper MD History of Present Illness: This is a very pleasant 47-year-old female who presented to the [place] emergency department with upper back pain and not feeling well over the last 3-4 days. She was sent here to [place] for further evaluation. She has a history of diabetes, smoker, hyperlipidemia, coronary artery disease and history of amputation of left great toe. She complains of mild upper back discomfort. She denies any dizziness, chest pain, palpitations or shortness of breath. Review of Systems All other systems reviewed negative except as stated in HPI [facility] - History History Provided By: Patient - Medical History Medical History: Medical History (Last Updated 03/18/18 @ 12:55 by Onel Mosher MD) Coronary artery disease Dyslipidemia History of amputation of left great toe Tobacco abuse Type 2 diabetes mellitus - Family History Family History: Family History (Last Updated 03/18/18 @ 12:56 by Onel Mosher MD) Other Type 2 diabetes mellitus - Tobacco History Second Hand Smoke Exposure: Yes Tobacco Use In Past 30 Days: Yes Smoking Status: Current every day smoker Tobacco Type: Cigarettes - Alcohol History How Often Do You Have a Drink Containing Alcohol: 2 to 4 times a month - Substance Use History Substance History: No History of Abuse - Travel History Recent Travel in the [place] Within the Last 8 Weeks: No Recent Travel Out of the Country Within the Last 8 Weeks: No - Immunization History Tetanus Immunization: Unsure Hx Influenza Vaccine This Season: No Medications and Allergies Allergies Allergy/AdvReac Type Severity Reaction Status Date / Time penicillin G Allergy Severe SWELLING Verified 03/18/18 11:04 Home Medications Medication Instructions Recorded Confirmed Type atorvastatin [Lipitor] 20 mg PO DAILY 03/18/18 03/18/18 History insulin NPH and regular human 25 unit SUB-Q DAILY 03/18/18 03/18/18 History [Novolin 70/30 U-100 Insulin] insulin regular human [Novolin R 1 sliding scale dose SUB-Q UD 03/18/18 History Regular U-100 Insuln] Active Medications: Active Medications Acetaminophen (Tylenol) 650 mg PO Q4H PRN PRN Reason: Temp > 100.4 Al Hydroxide/Mg Hydroxide (Milk Of Izabella Valentin) 30 ml PO Q12H PRN PRN Reason: Mild Constipation Aspirin (Aspirin Chew) 81 mg PO DAILY [facility] Atorvastatin Calcium (Lipitor) 80 mg PO HS [facility] Carvedilol (Coreg) 3.125 mg PO BID [facility] Dextrose (D50w Vial) 50 ml IV.PUSH UNSCH PRN PRN Reason: PER HYPOGLYCEMIA PROTOCOL Glucagon (Glucagon Inj) 1 mg OTHER PRN PRN PRN Reason: for Hypoglycemia Protocol Insulin Aspart (Novolog Insulin Correctional Sugar Inj) 0 unit SQ ACHS [facility]; Protocol Sodium Chloride (Ns Flush) 2 ml IV.FLUSH UNSCH PRN PRN Reason: FLUSH AFTER USING IV ACCESS Sodium Chloride (Ns Flush) 2 ml IV.FLUSH PRN PRN PRN Reason: FLUSH AFTER USING IV ACCESS Temazepam (Restoril) 15 mg PO HS PRN PRN Reason: INSOMNIA Ticagrelor (Brilinta) 90 mg PO BID [facility] Exam Vital signs: Vital Signs 03/18/18 11:04 03/18/18 11:08 03/18/18 11:26 Temperature 99.6 F Pulse Rate 94 H 97 H Respiratory Rate 18 Blood Pressure 128/77 Blood Pressure [Left Arm] 131/78 Blood Pressure [Right Arm] 124/79 Pulse Oximetry 99 99 03/18/18 11:30 03/18/18 13:03 03/18/18 13:14 Temperature Pulse Rate 97 H 100 H 104 H Respiratory Rate 18 18 18 Blood Pressure 141/86 H 115/81 104/68 Blood Pressure [Left Arm] Blood Pressure [Right Arm] Pulse Oximetry 99 100 03/18/18 15:34 Temperature Pulse Rate Respiratory Rate Blood Pressure Blood Pressure [Left Arm] Blood Pressure [Right Arm] Pulse Oximetry 100 Intake & Output 03/17/18 03/18/18 03/18/18 18:59 06:59 18:59 Weight 58.1 kg - Constitutional no acute distress - Routine HEENT Exam Head: Present: normocephalic Eye: Present: PERRL ENT: Present: mucous membranes moist - Routine Neck Exam Present: supple - Routine Respiratory Exam Present: CTA bilaterally - Routine Cardiovascular Exam Present: S1, S2. Absent: murmur, gallop, rubs - Routine Abdominal Exam Present: soft - Routine Extremities Exam Present: full ROM, pulses intact, normal capillary refill. Absent: cyanosis, clubbing, edema - Routine Skin Exam Present: intact - Routine Neurological Exam Present: oriented X3 Results 03/18/18 11:25 03/18/18 11:25 Cardiac Enzymes 03/18/18 03/18/18 Range/Units 11:25 11:25 AST 13 L (15-37) U/L Troponin I 0.64 H* (0.02-0.05) ng/mL B-Natriuretic Peptide 149 H (0-100) pg/mL Coagulation 03/18/18 03/18/18 Range/Units 11:25 11:25 PT 10.1 (9.8-11.6) sec APTT 24.8 (24.3-30.1) sec B-Natriuretic Peptide 149 H (0-100) pg/mL CBC 03/18/18 Range/Units 11:25 WBC 6.1 (4.0-11.0) th/mm3 RBC 4.03 (4.00-5.30) mil/mm3 Hgb 14.0 (11.6-15.3) gm/dL Hct 41.2 (35.0-46.0) % Plt Count 225 (150-450) th/mm3 Neut # (Auto) 3.6 (1.8-7.7) th/mm3 Lymph # (Auto) 1.9 (1.0-4.8) th/mm3 [place] # (Auto) 0.4 (0.0-0.9) th/mm3 Eos # (Auto) 0.2 (0.0-0.4) th/mm3 Baso # (Auto) 0.0 (0.0-0.2) th/mm3 Comprehensive Metabolic Panel 03/18/18 Range/Units 11:25 Sodium 134 L (136-145) meq/L Potassium 4.1 (3.5-5.1) meq/L Chloride 100 (98-107) meq/L Carbon Dioxide 26.4 (21.0-32.0) meq/L BUN 13 (7-18) mg/dL Creatinine 0.60 (0.50-1.00) mg/dL Calcium 9.0 (8.5-10.1) mg/dL AST 13 L (15-37) U/L ALT 20 (10-53) U/L Alkaline Phosphatase 84 (45-117) U/L Total Protein 7.3 (6.4-8.2) g/dL Albumin 3.6 (3.4-5.0) g/dL Intake and Output 03/18/18 03/18/18 03/18/18 06:59 14:59 22:59 Other: Weight 58.1 kg Patient Weight 03/19/18 06:59 Weight 58.1 kg Assessment and Plan - Assessment (1) ACS (acute coronary syndrome) Code(s): I24.9 - Acute ischemic heart disease, unspecified Status: Acute (2) Dyslipidemia Code(s): E78.5 - Hyperlipidemia, unspecified Status: Acute (3) Diabetes Code(s): E11.9 - Type 2 diabetes mellitus without complications Status: Acute - Plan pt trans. here from [place] for NSTEMI. Pt to go to cath. lab for possible intervention. Continue to monitor on tele. The patient was seen and evaluated by Dr. Luis who participated in care, management and decision making. <Den Luis - Last Filed: 03/18/18 17:17> History of Present Illness Primary Care Provider: Yue Cooper MD [facility] - Medical History Medical History: Medical History (Last Updated 03/18/18 @ 12:55 by Onel Mosher MD) Coronary artery disease Dyslipidemia History of amputation of left great toe Tobacco abuse Type 2 diabetes mellitus - Family History Family History: Family History (Last Updated 03/18/18 @ 12:56 by Onel Mosher MD) Other Type 2 diabetes mellitus Medications and Allergies Active Medications: Active Medications Acetaminophen (Tylenol) 650 mg PO Q4H PRN PRN Reason: Temp > 100.4 Al Hydroxide/Mg Hydroxide (Milk Of Izabella Valentin) 30 ml PO Q12H PRN PRN Reason: Mild Constipation Aspirin (Aspirin Chew) 81 mg PO DAILY [facility] Atorvastatin Calcium (Lipitor) 80 mg PO HS [facility] Carvedilol (Coreg) 3.125 mg PO BID [facility] Dextrose (D50w Vial) 50 ml IV.PUSH UNSCH PRN PRN Reason: PER HYPOGLYCEMIA PROTOCOL Glucagon (Glucagon Inj) 1 mg OTHER PRN PRN PRN Reason: for Hypoglycemia Protocol Insulin Aspart (Novolog Insulin Correctional Sugar Inj) 0 unit SQ ACHS [facility]; Protocol Sodium Chloride (Ns Flush) 2 ml IV.FLUSH UNSCH PRN PRN Reason: FLUSH AFTER USING IV ACCESS Sodium Chloride (Ns Flush) 2 ml IV.FLUSH PRN PRN PRN Reason: FLUSH AFTER USING IV ACCESS Temazepam (Restoril) 15 mg PO HS PRN PRN Reason: INSOMNIA Ticagrelor (Brilinta) 90 mg PO BID [facility] Exam Vital signs: Vital Signs 03/18/18 11:04 03/18/18 11:08 03/18/18 11:26 Temperature 99.6 F Pulse Rate 94 H 97 H Respiratory Rate 18 Blood Pressure 128/77 Blood Pressure [Left Arm] 131/78 Blood Pressure [Right Arm] 124/79 Pulse Oximetry 99 99 03/18/18 11:30 03/18/18 13:03 03/18/18 13:14 Temperature Pulse Rate 97 H 100 H 104 H Respiratory Rate 18 18 18 Blood Pressure 141/86 H 115/81 104/68 Blood Pressure [Left Arm] Blood Pressure [Right Arm] Pulse Oximetry 99 100 03/18/18 15:34 Temperature Pulse Rate Respiratory Rate Blood Pressure Blood Pressure [Left Arm] Blood Pressure [Right Arm] Pulse Oximetry 100 Intake & Output 03/17/18 03/18/18 03/18/18 18:59 06:59 18:59 Weight 128 lb 1.417 oz Results 03/18/18 11:25 03/18/18 11:25 Cardiac Enzymes 03/18/18 03/18/18 Range/Units 11:25 11:25 AST 13 L (15-37) U/L Troponin I 0.64 H* (0.02-0.05) ng/mL B-Natriuretic Peptide 149 H (0-100) pg/mL Coagulation 03/18/18 03/18/18 Range/Units 11:25 11:25 PT 10.1 (9.8-11.6) sec APTT 24.8 (24.3-30.1) sec B-Natriuretic Peptide 149 H (0-100) pg/mL CBC 03/18/18 Range/Units 11:25 WBC 6.1 (4.0-11.0) th/mm3 RBC 4.03 (4.00-5.30) mil/mm3 Hgb 14.0 (11.6-15.3) gm/dL Hct 41.2 (35.0-46.0) % Plt Count 225 (150-450) th/mm3 Neut # (Auto) 3.6 (1.8-7.7) th/mm3 Lymph # (Auto) 1.9 (1.0-4.8) th/mm3 [place] # (Auto) 0.4 (0.0-0.9) th/mm3 Eos # (Auto) 0.2 (0.0-0.4) th/mm3 Baso # (Auto) 0.0 (0.0-0.2) th/mm3 Comprehensive Metabolic Panel 03/18/18 Range/Units 11:25 Sodium 134 L (136-145) meq/L Potassium 4.1 (3.5-5.1) meq/L Chloride 100 (98-107) meq/L Carbon Dioxide 26.4 (21.0-32.0) meq/L BUN 13 (7-18) mg/dL Creatinine 0.60 (0.50-1.00) mg/dL Calcium 9.0 (8.5-10.1) mg/dL AST 13 L (15-37) U/L ALT 20 (10-53) U/L Alkaline Phosphatase 84 (45-117) U/L Total Protein 7.3 (6.4-8.2) g/dL Albumin 3.6 (3.4-5.0) g/dL Intake and Output 03/18/18 03/18/18 03/18/18 06:59 14:59 22:59 Other: Weight 128 lb 1.417 oz Patient Weight 03/19/18 06:59 Weight 128 lb 1.417 oz Assessment and Plan - Assessment (1) ACS (acute coronary syndrome) Code(s): I24.9 - Acute ischemic heart disease, unspecified Status: Acute (2) Dyslipidemia Code(s): E78.5 - Hyperlipidemia, unspecified Status: Acute (3) Diabetes Code(s): E11.9 - Type 2 diabetes mellitus without complications Status: Acute - Attending Attestation Patient seen and examined. I reviewed and agree with the evaluation and plan as presented. Proceed with cath/PCI.
--- NOTE | 2018-03-18 17:15 | MR ---
cc: Den Luis MD DATE: 03/18/2018 PREOPERATIVE DIAGNOSES: Acute coronary syndrome, [id number] myocardial infarction, diabetes mellitus. PROCEDURES PERFORMED: 1. Retrograde left heart catheterization with left ventriculography and selective coronary angiography. 2. Angioplasty and stenting of the proximal left anterior descending artery. 3. Moderate sedation. ACCESS SITE: Right femoral artery. EQUIPMENT USED: 5-Honduran pigtail catheter, JL4 and AR1 modified coronary artery catheters. XB 3.5 guide, Whisper wire, 2.0 x 10 mm balloon for predilatation, 2.5 x 15 mm Ruben drug-eluting stent at 11 atmospheres postdilated with 2.5 x 8 mm noncompliant balloon at 15 atmospheres. MEDICATIONS: Versed IV, fentanyl IV, heparin IV, nitroglycerin IC, Kengreal IV, Brilinta 180 mg p.o. CONTRAST: Omnipaque 185 mL. COMPLICATIONS: None. ESTIMATED BLOOD LOSS: Less than 10 mL. METHOD OF HEMOSTASIS: Angio-Seal closure. RESULTS: HEMODYNAMICS: Heart rate 85 beats per minute, end-diastolic pressure 4 mmHg, left ventricle 90/4, aorta 90/63/82, Ejection fraction 45%. Wall motion: anterior hypokinesis, no mitral regurgitation. C. Coronary angiography: The left main coronary artery patent. Left anterior descending artery has 90% stenosis in the proximal portion with thrombus. Mid LAD has 20% stenosis. First diagonal artery is patent. Second diagonal is patent. Proximal left circumflex artery has 70% stenosis, this is a relatively small caliber vessel. OM1 patent. OM2 has 40% proximal stenosis. Right coronary artery is a large, dominant vessel with 60% stenosis in the distal portion. The right ventricular branch has 80% ostial stenosis. PDA has 30% ostial stenosis. PLV is patent. There are faint [id number] collaterals. The stenosis in the proximal left anterior descending artery was 90%, lesion length 12 mm, pre RONEN flow II, post RONEN flow III, post stenosis 0. This was a type C lesion. Post-interventional angiography with excellent patency of stented segment and no evidence of dissection, thrombus or embolization. DIAGNOSES: 1. Acute coronary syndrome/[id number]-BA-xbduvhrsb myocardial infarction. 2. Severe multivessel coronary artery disease. 3. Mild LV dysfunction consistent with ischemic cardiomyopathy. 4. Successful angioplasty and stenting of the proximal left anterior descending artery. DISPOSITION: The patient will be monitored on telemetry after the procedure. We will continue therapy with Brilinta for at least a year and baby aspirin indefinitely. We will initiate aggressive modification of cardiac risk factors including dyslipidemia. She was strongly encouraged to quit smoking. She will continue to manage her diabetes. I will follow her for cardiology during her hospitalization. MD KWESI Thakkar/bernardo/giuseppe , 03:36 PM , 03:48 PM TAMMY
[2018-03-18] MEDS: Insulin NovoLOG Aspart Correctional Sugar Inj SQ SCH ×2 (19:09→21:21)
[2018-03-19 05:48] LABS: Baso % (Auto) 0.6 % (0.0-2.0); Eos # (Auto) 0.2 th/mm3 (0.0-0.4); Eos % (Auto) 2.4 % (0.0-4.0); Hematocrit 37.8 % (35.0-46.0); Hemoglobin 12.6 gm/dL (11.6-15.3); Lymph # (Auto) 1.6 th/mm3 (1.0-4.8); Lymph % (Auto) 21.7 % (9.0-44.0); Mean Corpuscular HGB Conc 33.4 % (32.0-36.0); Mean Corpuscular Hemoglobin 34.6 pg (27.0-34.0); Mean Corpuscular Volume 103.7 fL (80.0-100.0); Mean Platelet Volume 8.8 fL (7.0-11.0); Mono # (Auto) 0.5 th/mm3 (0.0-0.9); Mono % (Auto) 7.3 % (0.0-8.0); Platelet Count 216 th/mm3 (150-450); Red Blood Count 3.65 mil/mm3 (4.00-5.30); Red Cell Distribution Width 13.1 % (11.6-17.2); White Blood Count 7.3 th/mm3 (4.0-11.0)
[2018-03-19 06:20] LABS: Anion Gap 12 meq/L (5-15); Blood Urea Nitrogen 13 mg/dL (7-18); Calcium 7.9 mg/dL (8.5-10.1); Carbon Dioxide 20.1 meq/L (21.0-32.0); Chloride 101 meq/L (98-107); Chol/HDL Ratio 3.56 Ratio; Cholesterol 150 mg/dL (120-200); Glomerular Filtration Rate Greater Than 89 mL/min (>89); Glucose,Random 420 mg/dL (74-106); HDL Cholesterol 42.1 mg/dL (40.0-60.0); LDL Cholesterol,Calculated 65 mg/dL (0-99); Potassium 4.2 meq/L (3.5-5.1); Sodium 133 meq/L (136-145); Triglycerides 213 mg/dL (42-150)
[2018-03-19 06:25] LABS: Creatine Kinase 64 U/L (26-192)
[2018-03-19] MEDS: Insulin NovoLOG Aspart Correctional Sugar Inj SQ SCH (08:14)
[2018-03-19] MEDS ORDERED: Insulin Detemir Inj 1,000 UNIT/10 ML Vial SQ SCH (09:15)
[2018-03-19] MEDS ORDERED: Iohexol 350 MG/ML 100 ML Vial (for Cath Lab) IVCONTRAST ONE (09:20)
[2018-03-19 09:36] VITALS: PULSE 98
[2018-03-19 09:39] VITALS: BP 105/71; RESP 16; TEMP 97.8; O2SAT 98
--- NOTE | 2018-03-19 09:39 | P.PNIM ---
Subjective Interval history: Says she is feeling all right. Would like to go home. Denies any chest pain shortness of breath. Says she will stop smoking Physical Exam Vital signs: Vital Signs 03/18/18 11:04 03/18/18 11:08 03/18/18 11:26 Temperature 99.6 F Pulse Rate 94 H 97 H Respiratory Rate 18 Blood Pressure 128/77 Blood Pressure [Left Arm] 131/78 Blood Pressure [Right Arm] 124/79 Pulse Oximetry 99 99 03/18/18 11:30 03/18/18 13:03 03/18/18 13:14 Temperature Pulse Rate 97 H 100 H 104 H Respiratory Rate 18 18 18 Blood Pressure 141/86 H 115/81 104/68 Blood Pressure [Left Arm] Blood Pressure [Right Arm] Pulse Oximetry 99 100 03/18/18 15:34 03/18/18 18:00 03/18/18 20:00 Temperature 99 F Pulse Rate 94 H 96 H Respiratory Rate 18 Blood Pressure 109/79 Blood Pressure [Left Arm] Blood Pressure [Right Arm] Pulse Oximetry 100 99 03/18/18 21:00 03/18/18 22:00 03/18/18 23:00 Temperature Pulse Rate 96 H 98 H 98 H Respiratory Rate Blood Pressure Blood Pressure [Left Arm] Blood Pressure [Right Arm] Pulse Oximetry 03/19/18 00:00 03/19/18 01:00 03/19/18 02:00 Temperature 97.7 F Pulse Rate 97 H 96 H 92 H Respiratory Rate 18 Blood Pressure 119/74 Blood Pressure [Left Arm] Blood Pressure [Right Arm] Pulse Oximetry 99 03/19/18 03:00 03/19/18 04:00 03/19/18 05:00 Temperature 98.7 F Pulse Rate 98 H 101 H 110 H Respiratory Rate 18 Blood Pressure 127/58 L Blood Pressure [Left Arm] Blood Pressure [Right Arm] Pulse Oximetry 99 03/19/18 05:52 Temperature Pulse Rate 98 H Respiratory Rate Blood Pressure Blood Pressure [Left Arm] Blood Pressure [Right Arm] Pulse Oximetry Intake & Output 03/18/18 03/19/18 03/19/18 18:59 06:59 18:59 Intake Total 240 / 240 Output Total 300 / 300 Balance -300 / -300 240 / 240 Weight 58.1 kg 57.5 kg Intake: Oral 240 / 240 Output: Urine 300 / 300 Other: # Voids 1 Date of Last Bowel Movement 03/19/18 # Bowel Movements 1 Narrative: GENERAL: Patient sitting up in bed. Appears comfortable. Alert and oriented 3. SKIN: Warm and dry. HEAD: Normocephalic. EYES: No scleral icterus. No injection or drainage. NECK: Supple, trachea midline. No JVD. CARDIOVASCULAR: Regular rate and rhythm without murmurs, gallops, or rubs. RESPIRATORY: Breath sounds equal bilaterally. No accessory muscle use. GASTROINTESTINAL: Abdomen soft, non-tender, nondistended. MUSCULOSKELETAL: No cyanosis, or edema. BACK: Nontender without obvious deformity. No CVA tenderness. Results - Labs CBC & Chem 7: 03/19/18 04:20 03/19/18 04:20 Laboratory Results - last 24 hr 03/18/18 03/18/18 03/18/18 11:09 11:25 11:25 CBC w Diff Auto diff final WBC 6.1 RBC 4.03 Hgb 14.0 Hct 41.2 MCV 102.2 H MCH 34.7 H MCHC 33.9 RDW 12.4 Plt Count 225 MPV 8.6 Neut % (Auto) 58.7 Lymph % (Auto) 30.9 [place] % (Auto) 7.1 Eos % (Auto) 2.5 Baso % (Auto) 0.8 Neut # (Auto) 3.6 Lymph # (Auto) 1.9 [place] # (Auto) 0.4 Eos # (Auto) 0.2 Baso # (Auto) 0.0 WBC Differential . Differential Comment . PT INR APTT Sodium Potassium Chloride Carbon Dioxide Anion Gap BUN Creatinine Estimated GFR POC Glucose 365 H Random Glucose Calcium Total Bilirubin AST ALT Alkaline Phosphatase Total Creatine Kinase Troponin I B-Natriuretic Peptide 149 H Total Protein Albumin Triglycerides Cholesterol LDL Cholesterol, Calc HDL Cholesterol Cholesterol/HDL Ratio Lipase 03/18/18 03/18/18 03/18/18 11:25 11:25 17:47 CBC w Diff WBC RBC Hgb Hct MCV MCH MCHC RDW Plt Count MPV Neut % (Auto) Lymph % (Auto) [place] % (Auto) Eos % (Auto) Baso % (Auto) Neut # (Auto) Lymph # (Auto) [place] # (Auto) Eos # (Auto) Baso # (Auto) WBC Differential Differential Comment PT 10.1 INR 1.0 APTT 24.8 Sodium 134 L Potassium 4.1 Chloride 100 Carbon Dioxide 26.4 Anion Gap 8 BUN 13 Creatinine 0.60 Estimated GFR Greater than 89 POC Glucose 194 H Random Glucose 362 H Calcium 9.0 Total Bilirubin 0.5 AST 13 L ALT 20 Alkaline Phosphatase 84 Total Creatine Kinase 53 Troponin I 0.64 H* B-Natriuretic Peptide Total Protein 7.3 Albumin 3.6 Triglycerides Cholesterol LDL Cholesterol, Calc HDL Cholesterol Cholesterol/HDL Ratio Lipase 137 03/18/18 03/19/18 03/19/18 21:17 04:20 04:20 CBC w Diff WBC 7.3 RBC 3.65 L Hgb 12.6 Hct 37.8 MCV 103.7 H MCH 34.6 H MCHC 33.4 RDW 13.1 Plt Count 216 MPV 8.8 Neut % (Auto) 68.0 Lymph % (Auto) 21.7 [place] % (Auto) 7.3 Eos % (Auto) 2.4 Baso % (Auto) 0.6 Neut # (Auto) 5.0 Lymph # (Auto) 1.6 [place] # (Auto) 0.5 Eos # (Auto) 0.2 Baso # (Auto) 0.0 WBC Differential . Differential Comment Auto diff final PT INR APTT Sodium 133 L Potassium 4.2 Chloride 101 Carbon Dioxide 20.1 L Anion Gap 12 BUN 13 Creatinine 0.65 Estimated GFR Greater than 89 POC Glucose 166 H Random Glucose 420 H Calcium 7.9 L D Total Bilirubin AST ALT Alkaline Phosphatase Total Creatine Kinase 64 Troponin I B-Natriuretic Peptide Total Protein Albumin Triglycerides 213 H Cholesterol 150 LDL Cholesterol, Calc 65 HDL Cholesterol 42.1 Cholesterol/HDL Ratio 3.56 Lipase 03/19/18 03/19/18 03/19/18 04:53 04:56 07:17 CBC w Diff WBC RBC Hgb Hct MCV MCH MCHC RDW Plt Count MPV Neut % (Auto) Lymph % (Auto) [place] % (Auto) Eos % (Auto) Baso % (Auto) Neut # (Auto) Lymph # (Auto) [place] # (Auto) Eos # (Auto) Baso # (Auto) WBC Differential Differential Comment PT INR APTT Sodium Potassium Chloride Carbon Dioxide Anion Gap BUN Creatinine Estimated GFR POC Glucose 437 H 427 H 294 H Random Glucose Calcium Total Bilirubin AST ALT Alkaline Phosphatase Total Creatine Kinase Troponin I B-Natriuretic Peptide Total Protein Albumin Triglycerides Cholesterol LDL Cholesterol, Calc HDL Cholesterol Cholesterol/HDL Ratio Lipase - Imaging Impressions Chest X-Ray 03/18/18 11:09 CONCLUSION: 1. Minimal atelectatic changes in the medial aspect of the right hemidiaphragm. 2. Otherwise, no acute cardiopulmonary process. Assessment and Plan - Plan NSTEMI, Chest Pain Onset starting last , intermittent, suspicious EKG changes without ST elevation or depression, elevated troponin level at 0.64 Patient is transferring to the main floor immediate cardiac catheterization Appreciate cardiology consult and timely intervention = Status post PCI. Meds written. Patient cleared by cardiology. Type 2 Diabetes, Hyperglycemia Patient is concerned that her sugar is 360, she has a history of DKA at levels near that We will give single dose of regular insulin 6 units, follow with Accu-Cheks and sliding scale coverage after procedure Diabetic diet Anxiety Anxious about procedure, anxious about chest pain 0.5 mg of Ativan IV 1 Tobacco Abuse Patient was counseled to quit by her father and myself DVT Prophylaxis Per primary team following recovery from heart catheterization Discharge Planning: Discharge home in good condition. Continue heart healthy and diabetic diet. Activity ad dev. Please see discharge medication reconciliation for medication list. Follow-up with cardiology and primary care as outpatient.
--- NOTE | 2018-03-19 09:53 | P.PNCA ---
<CandiceKim N - Last Filed: 03/19/18 09:47> Subjective Interval history: Pt denies any chest pain, pressure, palpitations, dizziness or shortness of breath. Pt states she feels great. Physical Exam Vital signs: Vital Signs 03/18/18 11:04 03/18/18 11:08 03/18/18 11:26 Temperature 99.6 F Pulse Rate 94 H 97 H Respiratory Rate 18 Blood Pressure 128/77 Blood Pressure [Left Arm] 131/78 Blood Pressure [Right Arm] 124/79 Pulse Oximetry 99 99 03/18/18 11:30 03/18/18 13:03 03/18/18 13:14 Temperature Pulse Rate 97 H 100 H 104 H Respiratory Rate 18 18 18 Blood Pressure 141/86 H 115/81 104/68 Blood Pressure [Left Arm] Blood Pressure [Right Arm] Pulse Oximetry 99 100 03/18/18 15:34 03/18/18 18:00 03/18/18 20:00 Temperature 99 F Pulse Rate 94 H 96 H Respiratory Rate 18 Blood Pressure 109/79 Blood Pressure [Left Arm] Blood Pressure [Right Arm] Pulse Oximetry 100 99 03/18/18 21:00 03/18/18 22:00 03/18/18 23:00 Temperature Pulse Rate 96 H 98 H 98 H Respiratory Rate Blood Pressure Blood Pressure [Left Arm] Blood Pressure [Right Arm] Pulse Oximetry 03/19/18 00:00 03/19/18 01:00 03/19/18 02:00 Temperature 97.7 F Pulse Rate 97 H 96 H 92 H Respiratory Rate 18 Blood Pressure 119/74 Blood Pressure [Left Arm] Blood Pressure [Right Arm] Pulse Oximetry 99 03/19/18 03:00 03/19/18 04:00 03/19/18 05:00 Temperature 98.7 F Pulse Rate 98 H 101 H 110 H Respiratory Rate 18 Blood Pressure 127/58 L Blood Pressure [Left Arm] Blood Pressure [Right Arm] Pulse Oximetry 99 03/19/18 05:52 03/19/18 07:00 03/19/18 08:00 Temperature 97.8 F Pulse Rate 98 H 97 H 96 H Respiratory Rate 16 Blood Pressure 105/71 Blood Pressure [Left Arm] Blood Pressure [Right Arm] Pulse Oximetry 98 03/19/18 09:00 Temperature Pulse Rate 98 H Respiratory Rate Blood Pressure Blood Pressure [Left Arm] Blood Pressure [Right Arm] Pulse Oximetry Intake & Output 03/18/18 03/19/18 03/19/18 18:59 06:59 18:59 Intake Total 240 / 240 Output Total 300 / 300 Balance -300 / -300 240 / 240 Weight 58.1 kg 57.5 kg Intake: Oral 240 / 240 Output: Urine 300 / 300 Other: # Voids 1 Date of Last Bowel Movement 03/19/18 # Bowel Movements 1 - Constitutional no acute distress - Routine HEENT Exam Head: Present: normocephalic Eye: Present: PERRL ENT: Present: mucous membranes moist - Routine Neck Exam Present: full ROM - Routine Respiratory Exam Present: CTA bilaterally - Routine Cardiovascular Exam Present: S1, S2. Absent: murmur, gallop, rubs - Routine Abdominal Exam Present: soft - Routine Extremities Exam Present: full ROM, pulses intact, normal capillary refill. Absent: cyanosis, clubbing, edema - Routine Skin Exam Present: intact - Routine Neurological Exam Present: oriented X3 - Detailed Neurological Exam: Coma Scale Eye Opening: Spontaneous - Routine Psychiatric Exam Present: normal affect - Additional findings Additional findings: Right groin site, dry and intact with no signs of bleeding or hematoma. Assessment and Plan - Assessment (1) ACS (acute coronary syndrome) Code(s): I24.9 - Acute ischemic heart disease, unspecified Status: Acute (2) Dyslipidemia Code(s): E78.5 - Hyperlipidemia, unspecified Status: Acute (3) Diabetes Code(s): E11.9 - Type 2 diabetes mellitus without complications Status: Acute - Plan Pt sitting up in bed in no acute distress. Continue with current cardiac treatment plan. Will Discharge patient home this morning. The patient was seen and evaluated by Dr. Luis who participated in care, management and decision making. <Den Luis - Last Filed: 03/19/18 18:46> Physical Exam Vital signs: Vital Signs 03/18/18 20:00 03/18/18 21:00 03/18/18 22:00 Temperature 99 F Pulse Rate 96 H 96 H 98 H Respiratory Rate 18 Blood Pressure 109/79 Pulse Oximetry 99 03/18/18 23:00 03/19/18 00:00 03/19/18 01:00 Temperature 97.7 F Pulse Rate 98 H 97 H 96 H Respiratory Rate 18 Blood Pressure 119/74 Pulse Oximetry 99 03/19/18 02:00 03/19/18 03:00 03/19/18 04:00 Temperature 98.7 F Pulse Rate 92 H 98 H 101 H Respiratory Rate 18 Blood Pressure 127/58 L Pulse Oximetry 99 03/19/18 05:00 03/19/18 05:52 03/19/18 07:00 Temperature Pulse Rate 110 H 98 H 97 H Respiratory Rate Blood Pressure Pulse Oximetry 03/19/18 08:00 03/19/18 09:00 Temperature 97.8 F Pulse Rate 96 H 98 H Respiratory Rate 16 Blood Pressure 105/71 Pulse Oximetry 98 Intake & Output 03/18/18 03/19/18 03/19/18 18:59 06:59 18:59 Intake Total 240 / 240 Output Total 300 / 300 Balance -300 / -300 240 / 240 Weight 128 lb 1.417 oz 126 lb 12.253 oz Intake: Oral 240 / 240 Output: Urine 300 / 300 Other: # Voids 1 Date of Last Bowel Movement 03/19/18 # Bowel Movements 1 Assessment and Plan - Assessment (1) ACS (acute coronary syndrome) Code(s): I24.9 - Acute ischemic heart disease, unspecified Status: Acute (2) Dyslipidemia Code(s): E78.5 - Hyperlipidemia, unspecified Status: Acute (3) Diabetes Code(s): E11.9 - Type 2 diabetes mellitus without complications Status: Acute - Attending Attestation Patient seen and examined. I reviewed and agree with the evaluation and plan as presented. Continue Brilinta for 3 months, then switch to clopidogrel long-term tx. Continue baby ASA, high dose atorvastatin, and beta karon. Start card rehab. [place] home.
--- NOTE | 2018-03-19 13:24 | ECG ---
Date Performed: 03/19/2018 Time Performed: 05:34:20 PTAGE: 47 years EKG: Sinus rhythm with PVC(s) Lead(s) unsuitable for analysis: V2 Anterolateral T wave changes may be due to myocardia l ischemia Abnormal ECG PREVIOUS TRACING : 03/18/2018 10.51 Since the previous tracing, no significant change noted DOCTOR: Aayush Carranza Interpretating Date/Time 03/19/2018 13:23:44
== END 2018-03-19 10:34 | disposition home or self-care (01) ==
LOC: PHED 10:45 → PHEDA 12:13 → HDIC 14:01 → HCIS 17:41
PROVIDERS: ADMIT Internal Medicine; ATTEND Internal Medicine